=== PATIENT | male | born 1940 | race Caucasian/White ===

== ENCOUNTER 2016-08-11 15:46 | Inpatient (IN) | payer MEDICARE, OTHER ==
[~2016-08-11] VITALS: Ht 165.1 cm; Wt 87.4 kg
[~2016-08-11 15:46] MED LIST: ADV25050 INH; ALBU90AE INHALATION; AZIT250T6 PO; CARV6.2579 PO; ERGO500014 PO; NEBI5TAB9 PO; PRED20TA PO; SIMV20TA6 PO; THEO400T2 PO
[2016-08-11] MEDS ORDERED: ALBUTEROL 0.5% (NEB) 2.5 MG/0.5 ML AMP INH STA (16:08)
[2016-08-11] MEDS ORDERED: IPRATROPIUM (NEB) 0.5 MG/2.5 ML AMP INH STA (16:08)
[2016-08-11] MEDS ORDERED: METHYLPREDNISOLONE 125 MG INJ IV STA (16:08)
[2016-08-11] MEDS ORDERED: TERBUTALINE 1 MG/ML INJ SC STA ×2 (16:08→18:06)
[2016-08-11] MEDS ORDERED: CARV3.1260 PO (16:27)
[2016-08-11] MEDS ORDERED: METH4TAB PO (16:28)
[2016-08-11] MEDS ORDERED: TAMS0.4C2 PO (16:29)
[2016-08-11] MEDS ORDERED: BACL10TA PO (16:29)
[2016-08-11] MEDS ORDERED: CIPR500T4 PO (16:30)
[2016-08-11] MEDS ORDERED: RIVA20TA PO (16:30)
[2016-08-11] MEDS ORDERED: MELO-110 PO (16:31)
[2016-08-11] MEDS ORDERED: LEVO500T10 PO (16:31)
[2016-08-11] MEDS ORDERED: ALBU18HF INHALATION (16:32)
--- NOTE | 2016-08-11 16:37 | RADRPT ---
PROCEDURE: XR Chest. CLINICAL INDICATION: 75-year-old male with asthma exacerbation with shortness of breath. TECHNIQUE: Single frontal view of the chest was obtained COMPARISON: Chest x-ray 05/28/2060 09:58 p.m. FINDINGS: The soft tissues are normal. There are degenerative osteophytes in the thoracic spine. The the hea rt is enlarged. The cardiomediastinal silhouette, pulmonary vasculature and hilar structures are no rmal. There is a left-sided aorta. the lungs are clear. The right costophrenic angle is blunted. The left costophrenic angle may be minimally blunted. IMPRESSION: 1. Cardiomegaly which is unchanged. 2. Blunting of the costophrenic angles may reflect small pleural effusions or pleural scarring. 3. The pulmonary vasculature and lung mercedes are unremarkable with no active infiltrate or pulmonar y edema identified. RPTAT:AAJJ Physician Andres Date Time Electronically viewed and signed by Physician Andres on 08/11/2016 16:37 DARRION/
[2016-08-11 16:39] LABS: ADD SCAN DIFF NO
[2016-08-11 16:42] LABS: ABNORMAL IP MESSAGE 1; HEMATOCRIT 45.1 % (42.0-52.0); HEMOGLOBIN 14.5 g/dl (14.0-18.0); MEAN CORPUSCULAR HEMOGLOBIN 28.1 pg (29.0-33.0); MEAN CORPUSCULAR HGB CONC 32.2 g/dl (32.0-37.0); MEAN CORPUSCULAR VOLUME 87.4 fl (82.0-101.0); MEAN PLATELET VOLUME 11.2 fl (7.4-10.4); PLATELET COUNT 289 10^3/UL (140-415); RED BLOOD COUNT 5.16 10^6/ul (4.70-6.10); RED CELL DISTRIBUTION WIDTH 14.7 % (11.5-14.5); WHITE BLOOD COUNT 12.4 10^3/ul (4.8-10.8)
[2016-08-11 16:58] LABS: POTASSIUM 4.7 mmol/L (3.5-5.1)
[2016-08-11 17:00] LABS: CREATININE 0.96 mg/dl (0.61-1.24)
[2016-08-11 17:01] LABS: CALCIUM 9.5 mg/dl (8.4-10.2)
[2016-08-11 17:13] LABS: TROPONIN-I 0.019 ng/ml (0.00-0.12)
[2016-08-11 17:40] LABS: ANISOCYTOSIS 1+; EOSINOPHILS # 0.1 10^3/ul (0.0-0.5); LYMPHOCYTES # 1.7 10^3/ul (0.8-2.9); MONOCYTE # 1.6 10^3/ul (0.3-0.9); NEUTROPHIL # 8.9 10^3/ul (1.6-7.5); PLATELET ESTIMATE PLT APPEAR ADEQUATE
[2016-08-11] MEDS ORDERED: ALBUTEROL 0.5% (NEB) 2.5 MG/0.5 ML AMP NEB STA (18:06)
[2016-08-11] MEDS ORDERED: SOD CHLORIDE 0.9% 1,000 ML IV SCH (18:39)
--- NOTE | 2016-08-11 18:45 | ERA ---
ER Documentation Chief Complaint Date/Time DATE: 08/11/16 TIME: 18:42 Chief Complaint SOB AND COUGH X 1 HOUR. HX ASTHMA HPI This is 75-year-old male with history of asthma/COPD he was doing relatively well until this afternoon when he had sudden onset of wheezing and shortness of breath. The patient took a nebulizer treatment at home but did not get better and felt he was getting worse so he came in by EMS. He has had no recent cough no fever he has no substernal chest pain but feels some pain in his back when he breathes in. He says this is typical. No abdominal pain nausea vomiting diarrhea. ROS All systems reviewed and are negative except as per history of present illness. Medications Home Meds Reported Medications Albuterol Sulfate* (Ventolin HFA*) 18 Gm Hfa.aer.ad, 2 PUFF INHALATION Q4H, #1 INHALER 08/11/16 Meloxicam* (Mobic*) 15 Mg Tablet, 15 MG PO DAILY, #30 TAB 08/11/16 Levofloxacin* (Levofloxacin*) 500 Mg Tablet, 500 MG PO DAILY, TAB 08/11/16 Rivaroxaban* (Xarelto*) 20 Mg Tablet, 20 MG PO WITH DINNER, TAB 08/11/16 Ciprofloxacin Hcl* (Ciprofloxacin Hcl*) 500 Mg Tablet, 500 MG PO TID, #14 TAB 08/11/16 Baclofen* (Baclofen*) 10 Mg Tablet, 10 MG PO QHS, TAB 08/11/16 Tamsulosin Hcl* (Tamsulosin Hcl*) 0.4 Mg Cap.er.24h, 0.8 MG PO DAILY, CAP 08/11/16 Methylprednisolone* (Medrol*) 4 Mg Tab, 8 MG PO QAM, TAB 08/11/16 Carvedilol* (Carvedilol*) 3.125 Mg Tablet, 3.125 MG PO BID, #60 TAB 08/11/16 Nebivolol* (Bystolic*) 5 Mg Tab, 5 MG PO QHS, #30 10/21/15 Discontinued Reported Medications Theophylline Anhydrous* (Theophylline* ER) 400 Mg Tablet.sa, 200 MG PO BID, TAB.SA 05/28/16 Ergocalciferol* (Drisdol* (Vitamin D2)) 50,000 Unit Capsule, 85110 UNIT PO Q7D, CAP 05/28/16 Carvedilol* (Carvedilol*) 6.25 Mg Tablet, 6.25 MG PO DAILY, #30 10/21/15 Simvastatin (Simvastatin) 20 Mg Tablet, 20 MG PO QHS, #30 10/21/15 Discontinued Scripts Prednisone* (Prednisone*) 20 Mg Tab, 60 MG PO DAILY for 5 Days, TAB Prov:RODRIGUEZ DIALLO MD 05/29/16 Azithromycin* (Azithromycin*) 250 Mg Tablet, 250 MG PO DAILY, #4 TAB Prov:RODRIGUEZ DIALLO MD 05/29/16 Salmeterol Xinaf/Fluticasone* (Advair*) 1 Inh Inha, 1 INH INH BID for 30 Days Prov:MIRYAM SANTOYO 08/26/15 Albuterol Sulfate (Proair Respiclick) 90 Mcg Aer.pow.ba, 2 PUFFS INHALATION q4h Y for SHORTNESS OF BREATH, #1 INHALER Prov:MIRYAM SANTOYO 08/26/15 Allergies Allergies: Coded Allergies: No Known Allergy (Verified , 08/11/16) PMhx/Soc History of Surgery: Yes (hernia repair, colostomy ) Anesthesia Reaction: No Hx Neurological Disorder: Yes (CVA, Dizziness) Hx Respiratory Disorders: Yes (COPD, ASTHMA) Hx Cardiac Disorders: Yes (HEART ATTACK, hypertension) Hx Psychiatric Problems: No Hx Miscellaneous Medical Probl: No Hx Alcohol Use: Yes (Quit) Hx Substance Use: No Hx Tobacco Use: Yes Smoking Status: Former smoker FmHx Family History: No coronary disease Physical Exam Vitals Vital Signs Date Time Temp Pulse Resp B/P Pulse Ox O2 Delivery O2 Flow Rate FiO2 08/11/16 18:29 2.0 08/11/16 18:29 65 20 96 Nasal Cannula 2.0 08/11/16 18:25 58 19 109/58 100 Nasal Cannula 2.0 08/11/16 16:00 Nasal Cannula 2 08/11/16 15:48 97.3 67 18 120/57 93 Physical Exam Const: Well-developed, well-nourished Head: Atraumatic, normocephalic Eyes: Normal Conjunctiva, PERRLA, EOMI, normal sclera, no nystagmus ENT: Normal External Ears, Nose and Mouth, moist mucus membranes. Neck: Full range of motion. No meningismus, no lymphadenopathy. Resp: Increased work of breathing with diffuse inspiratory and expiratory wheezes Cardio: Regular rate and rhythm, no murmurs, S1 S2 present Abd: Soft, non tender x 4, non distended. Normal bowel sounds, no guarding or rebound, no pulsitile abdominal masses or bruits Skin: No petechiae or rashes, no ecchymosis , no maculopapular rash Back: No midline or flank tenderness Ext: No cyanosis, or edema, FROM x 4, normal inspection, neurovascularly intact x 4 Neur: Awake and alert, STR 5/5 x 4, sensation intact x 4, no focal findings, cerebellum intact Psych: Normal Mood and Affect Result Diagram: 08/11/16 1623 08/11/16 1623 Results 24 hrs Laboratory Tests Test 08/11/16 16:23 Anion Gap 15 Anisocytosis 1+ B-Type Natriuretic Peptide 93PG/ML Blood Urea Nitrogen 27mg/dl Calcium Level 9.5mg/dl Carbon Dioxide Level 33mmol/L Chloride Level 95mmol/L Creatinine 0.96mg/dl Eosinophils # 0.110^3/ul Eosinophils % 1.0% Glucose Level 80mg/dl Hematocrit 45.1% Hemoglobin 14.5g/dl Lymphocytes # 1.710^3/ul Lymphocytes % 14.0% Macrocytosis RARE Mean Corpuscular Hemoglobin 28.1pg Mean Corpuscular Hemoglobin Concent 32.2g/dl Mean Corpuscular Volume 87.4fl Mean Platelet Volume 11.2fl Monocytes # 1.610^3/ul Monocytes % 13.0% Neutrophils # 8.910^3/ul Neutrophils % 72.0% Platelet Count 20442^3/UL Platelet Estimate PLT APPEAR ADEQUATE Potassium Level 4.7mmol/L Red Blood Count 5.1610^6/ul Red Cell Distribution Width 14.7% Sodium Level 138mmol/L Troponin I 0.019ng/ml White Blood Count 12.410^3/ul Current Medications Medications (Trade) Dose Ordered Sig/Elisa Route PRN Reason Start Time Stop Time Status Last Admin Dose Admin Albuterol (Proventil 0.5% (Neb)) 10 mg ONCE STAT INH 08/11/16 16:08 08/11/16 16:16 DC 08/11/16 16:45 Ipratropium [place] (Atrovent 0.02% (Neb)) 1 mg ONCE STAT INH 08/11/16 16:08 08/11/16 16:16 DC 08/11/16 16:45 Methylprednisolone Sodium Succinate (Solu-Medrol) 125 mg ONCE STAT IV 08/11/16 16:08 08/11/16 16:16 DC 08/11/16 16:59 Terbutaline Sulfate (Brethine) 0.25 mg ONCE STAT SC 08/11/16 16:08 08/11/16 16:16 DC 08/11/16 16:59 Albuterol (Proventil 0.5% (Neb)) 7.5 mg ONCE STAT NEB 08/11/16 18:06 08/11/16 18:08 DC Terbutaline Sulfate (Brethine) 0.25 mg ONCE STAT SC 08/11/16 18:06 08/11/16 18:08 DC Procedures/MDM PROCEDURE: XR Chest. CLINICAL INDICATION: 75-year-old male with asthma exacerbation with shortness of breath. TECHNIQUE: Single frontal view of the chest was obtained COMPARISON: Chest x-ray 05/28/2060 09:58 p.m. FINDINGS: The soft tissues are normal. There are degenerative osteophytes in the thoracic spine. The the heart is enlarged. The cardiomediastinal silhouette, pulmonary vasculature and hilar structures are normal. There is a left-sided aorta. the lungs are clear. The right costophrenic angle is blunted. The left costophrenic angle may be minimally blunted. IMPRESSION: 1. Cardiomegaly which is unchanged. 2. Blunting of the costophrenic angles may reflect small pleural effusions or pleural scarring. 3. The pulmonary vasculature and lung mercedes are unremarkable with no active infiltrate or pulmonary edema identified. RPTAT:AAJJ Physician Andres Date Time Electronically viewed and signed by Armin Brito Physician on 08/11/2016 16:37 DARRION/ CC: JAQUELINE RYAN DO Patient received an hour long treatment of albuterol along with Atrovent. Also received some steroids IV. On repeat exam the patient's sats are 97-98 on 2-1/2 L nasal cannula but his lung sounds are unchanged he still has increased respiratory effort. He is not in respiratory distress We will repeat breathing treatments and add terbutaline subcu. We will admit for asthma/COPD exacerbation Departure Diagnosis: Primary Impression: COPD with exacerbation Condition: JAQUELINE Rosa DO Aug 11, 2016 18:45
[2016-08-11] MEDS ORDERED: morphine 2 MG INJ IV PRN (19:00)
[2016-08-11] MEDS ORDERED: NA PHOSPHATE/BIPHOS 133 ML ENEMA PR PRN (19:00)
[2016-08-11] MEDS ORDERED: ONDANSETRON 4 MG INJ IV PRN ×2 (19:00)
[2016-08-11] MEDS ORDERED: NITROGLYCERIN (SL) 0.4 MG TAB SL PRN (19:00)
[2016-08-11] MEDS ORDERED: ACETAMINOPHEN 325 MG TAB PO PRN ×2 (19:00)
[2016-08-11] MEDS ORDERED: LORAZEPAM 2 MG INJ IV PRN (19:00)
[2016-08-11] MEDS ORDERED: hydrALAzine 20 MG INJ IV PRN (19:00)
[2016-08-11] MEDS ORDERED: HYDROCODONE/APAP (5/325) TAB PO PRN (19:00)
[2016-08-11] MEDS: METHYLPREDNISOLONE 125 MG INJ IV SCH ×2 (19:00→23:35)
[2016-08-11] MEDS ORDERED: NACL 0.9% 3 ML SYG IV SCH (19:00)
--- NOTE | 2016-08-11 19:50 | HP ---
DATE OF ADMISSION: 08/11/2016 CHIEF COMPLAINT: Shortness of breath. HISTORY OF PRESENT ILLNESS: A 75-year-old male, past medical history of COPD, prior bronchitis, hyp ertension, morbid obesity, high cholesterol, prior smoking history, questionable history of blood cl ot, who presents after having shortness of breath that began earlier today. He has breathing treatm ents at home which he tried to take, but did not relieve his symptoms, so he decided to come into [facility]. He also has been having yellow phlegm. He had subjective fevers as well, but no dizziness, n o loss of consciousness. Feels some pain in the back when he takes a deep breath but no abdominal p ain. No significant chest pain. No nausea. No vomiting. No diarrhea. No constipation. When he came into the ER today, he received breathing treatments, but was still found with elevated white bl ood cell count and still having shortness of breath symptoms despite the breathing treatment. He wa s last here at our hospital from 10/22 to 10/24/2015 for COPD exacerbation at that time. PAST MEDICAL HISTORY: As above; possible stroke, possible heart attack. ALLERGIES: NO KNOWN DRUG ALLERGIES. MEDICATIONS AT HOME 1. Cipro 500 mg t.i.d. 2. Levaquin 500 mg daily. 3. Ventolin HFA 2 puffs inhaled q.4h. 4. Baclofen 10 mg at bedtime. 5. Flomax 0.8 mg daily. 6. Xarelto 20 mg with dinner. 7. Coreg 3.125 mg b.i.d. 8. Bystolic 5 mg at bedtime. 9. Mobic 15 mg daily. 10. Medrol 8 mg q.a.m. PAST SURGICAL HISTORY: He had a colostomy in the past, a hernia repair in the past. SOCIAL HISTORY: Former alcohol user, he quit. A former smoker but quit recently. Denies any IV dr ug abuse. FAMILY HISTORY: Noncontributory. PHYSICAL EXAMINATION VITAL SIGNS: T-max 97.3, pulse 58 to 67, respirations 18 to 20, blood pressure is 120/57, saturatin g at 93% to 96% on 2 L nasal cannula. GENERAL: The patient is lying in bed, answering questions appropriately, in mild distress but alert . HEENT: Pupils equal, round, react to light. Extraocular muscles intact. NECK: Supple; no thyromegaly. LUNGS: Positive rhonchi and expiratory wheezes bilaterally. CARDIOVASCULAR: S1, S2 heard. No rubs or gallops. ABDOMEN: Soft, nontender, nondistended. Normal bowel sounds. No rebound or guarding. MUSCULOSKELETAL: No lower extremity edema bilaterally. NEUROLOGIC: No focal deficits. LABORATORIES: WBC 12.4, hemoglobin 14.5, hematocrit 45.1, platelets of 289. Sodium 138, potassium 4.7, chloride 95, CO2 33, BUN 27, creatinine 0.96, glucose 80. IMAGING: Chest x-ray showed cardiomegaly, unchanged. Blunting of the costophrenic angle, which may reflect small pleural effusions or pleural scarring. Pulmonary vasculature lung mercedes are unremar kable. ASSESSMENT AND PLAN A 75-year-old male coming in with chronic obstructive pulmonary disease exacerbation: 1. Shortness of breath, secondary to chronic obstructive pulmonary disease. Put him on breathing t reatments. Levaquin for now. Given his leukocytosis keep his O2 sats between 88 to 92%. Put him o n Solu-Medrol 80 mg q.6h. as well. Check a TSH, A1c and lipid panel as well. Consider pulmonary co nsult if symptoms do not improve. 2. Hypertension. Continue current medications. 3. High cholesterol. Check a lipid panel. Continue to monitor for now. 4. Prior history of nicotine dependence in remission. Continue his education for smoking cessation . 5. Questionable history of stroke and heart attack. He is on Xarelto. We will need to get more in formation about that. I will try to look at old medical records. I do not see any prior history of that. When he was last here, he was not sent home on Xarelto; but again, that was about a year ago , so need to find out why he is on Xarelto. 6. History of coronary artery disease. Continue Coreg and Bystolic. 7. Gastrointestinal prophylaxis, PPI. 8. Deep venous thrombosis prophylaxis, heparin subcutaneously. Dictated By: FRANKLYN COX Conf#: [id number] DID#: [id number]
[2016-08-11] MEDS: SOD CHLORIDE 0.45% 1,000 ML IV SCH (21:00)
[2016-08-11] MEDS: LEVOFLOXACIN 750MG/D5W (PMX) 150 ML IVPB SCH (21:00)
[2016-08-11] MEDS: ALBUTEROL/IPRATROPIUM (NEB) 3 ML AMP HHN SCH (21:00)
[2016-08-11 22:28] VITALS: PULSE 72
[2016-08-11 22:32] VITALS: Ht 165.1 cm; Wt 87.4 kg
[2016-08-11] MEDS: BACLOFEN 10 MG TAB PO SCH (22:45)
[2016-08-11] MEDS: TAMSULOSIN (SR) 0.4 MG CAP PO SCH (22:46)
[2016-08-11] MEDS: HEPARIN 5,000 UNIT/0.5 ML SYG SC SCH (22:48)
[2016-08-11 23:33] VITALS: BP 135/61; RESP 16
[2016-08-11] MEDS: NEBIVOLOL 5 MG TAB PO SCH (23:37)
[2016-08-12] VITALS (12 sets, daily range): BP systolic 96–116; BP diastolic 50–65; PULSE 53–71; RESP 16–20
[2016-08-12] MEDS: ALBUTEROL/IPRATROPIUM (NEB) 3 ML AMP HHN SCH ×6 (01:11→21:14)
[2016-08-12] MEDS: METHYLPREDNISOLONE 125 MG INJ IV SCH ×4 (05:33→23:43)
[2016-08-12] MEDS ORDERED: PANTOPRAZOLE 40 MG INJ IV SCH (06:00)
[2016-08-12 07:48] LABS: ADD SCAN DIFF NO
[2016-08-12 07:53] LABS: CHOL/HDL RATIO 2.3 RATIO
[2016-08-12 08:06] LABS: ABNORMAL IP MESSAGE 1; BASOPHILS % 0.2 % (0.0-2.0); EOSINOPHILS % 0.2 % (0.0-7.0); HEMATOCRIT 42.7 % (42.0-52.0); HEMOGLOBIN 13.5 g/dl (14.0-18.0); LYMPHOCYTES # 0.9 10^3/ul (0.8-2.9); LYMPHOCYTES % 8.9 % (15.0-51.0); MEAN CORPUSCULAR HEMOGLOBIN 27.6 pg (29.0-33.0); MEAN CORPUSCULAR HGB CONC 31.6 g/dl (32.0-37.0); MEAN CORPUSCULAR VOLUME 87.3 fl (82.0-101.0); MEAN PLATELET VOLUME 11.4 fl (7.4-10.4); MONOCYTE # 0.2 10^3/ul (0.3-0.9); MONOCYTES % 2.4 % (0.0-11.0); NEUTROPHILS % 82.5 % (39.0-77.0); PLATELET COUNT 271 10^3/UL (140-415); RED BLOOD COUNT 4.89 10^6/ul (4.70-6.10); RED CELL DISTRIBUTION WIDTH 15.1 % (11.5-14.5); WHITE BLOOD COUNT 9.7 10^3/ul (4.8-10.8)
[2016-08-12 08:23] LABS: THYROID STIMULATING HORMONE 0.437 MIU/L (0.465-4.680)
[2016-08-12 08:41] LABS: POTASSIUM 4.5 mmol/L (3.5-5.1)
[2016-08-12 08:44] LABS: CREATININE 0.92 mg/dl (0.61-1.24)
[2016-08-12 08:45] LABS: CALCIUM 8.9 mg/dl (8.4-10.2)
[2016-08-12] MEDS: HEPARIN 5,000 UNIT/0.5 ML SYG SC SCH (09:06)
--- NOTE | 2016-08-12 10:52 | PN ---
Date/Time of Note Date/Time of Note DATE: 08/12/16 TIME: 10:35 Assessment/Plan VTE Prophylaxis VTE Prophylaxis Intervention: other (Xarelto) Lines/Catheters IV Catheter Type (from Nrs): Peripheral IV Assessment/Plan Chief Complaint/Hosp Course ASSESSMENT AND PLAN: 75-year-old male coming in with chronic obstructive pulmonary disease exacerbation: 1. Shortness of breath - secondary to chronic obstructive pulmonary disease - slowly improving, but still + wheezes today - continue breathing treatments Q4 hrs ATC - continue Levaquin for now, add cough suppressants -goal O2 sats between 88 to 92%. - continue Solu-Medrol 80 mg q.6h. as well. - f/u TSH, A1c and lipid panel as well. - Consider pulmonary consult if symptoms do not improve. - PT and OT consults. 2. Hypertension. Continue current medications. 3. High cholesterol - f/u lipid panel. - Continue to monitor for now. 4. Prior history of nicotine dependence in remission. - Continue his education for smoking cessation. 5. Questionable history of stroke and heart attack - pt states he was hoaspitalized at [facility] in [place] in the year and states they 'may" have started him on Xarelto then, but he is "not sure why he is taking it". Denies Hx of blood clot/PE. - will request medical records from [facility] - I do not see any prior history of Xarelto being started here in our hospital on any prior admissions ( When he was last here at [facility] in October 2015, he was not sent home on Xarelto). - continue for now, along with Coreg and Bystolic. 6. Gastrointestinal prophylaxis, PPI. 7. Deep venous thrombosis prophylaxis - Xarelto Problems: Subjective 24 Hr Interval Summary Free Text/Dictation Pt has less SOB, but + cough, worked with PT today as well. Exam/Review of Systems Vital Signs Vitals Vital Signs Date Time Temp Pulse Resp B/P Pulse Ox O2 Delivery O2 Flow Rate FiO2 08/12/16 09:33 64 20 94 Nasal Cannula 2.0 08/12/16 07:34 98.3 104/65 08/12/16 01:21 28 Exam GENERAL: The patient is lying in bed, answering questions appropriately, alert. HEENT: Pupils equal, round, react to light. Extraocular muscles intact. NECK: Supple; no thyromegaly. LUNGS: still some + rhonchi and + expiratory wheezes bilaterally, slightly improved from yesterday CARDIOVASCULAR: S1, S2 heard. No rubs or gallops. ABDOMEN: Soft, nontender, nondistended. Normal bowel sounds. No rebound or guarding. MUSCULOSKELETAL: No lower extremity edema bilaterally. NEUROLOGIC: No focal deficits. Results Result Diagram: 08/12/16 0616 08/12/16 0616 Results 24 hrs Laboratory Tests Test 08/11/16 16:23 08/12/16 06:16 Anion Gap 15 18 H Anisocytosis 1+ B-Type Natriuretic Peptide 93 Blood Urea Nitrogen 27 H 22 H Calcium Level 9.5 8.9 Carbon Dioxide Level 33 H 28 Chloride Level 95 L 96 L Creatinine 0.96 0.92 Eosinophils # 0.1 0.0 Eosinophils % 1.0 0.2 Free Thyroxine 1.48 Glucose Level 80 126 # Hematocrit 45.1 42.7 Hemoglobin 14.5 13.5 L Lymphocytes # 1.7 0.9 Lymphocytes % 14.0 L 8.9 L Macrocytosis RARE Mean Corpuscular Hemoglobin 28.1 L 27.6 L Mean Corpuscular Hemoglobin Concent 32.2 31.6 L Mean Corpuscular Volume 87.4 87.3 Mean Platelet Volume 11.2 H 11.4 H Monocytes # 1.6 H 0.2 L Monocytes % 13.0 H 2.4 Neutrophils # 8.9 H 8.0 H Neutrophils % 72.0 82.5 H Platelet Count 289 271 Platelet Estimate PLT APPEAR ADEQUATE Potassium Level 4.7 4.5 Red Blood Count 5.16 4.89 Red Cell Distribution Width 14.7 H 15.1 H Sodium Level 138 137 Troponin I 0.019 White Blood Count 12.4 #H 9.7 # Basophils # 0.0 Basophils % 0.2 Cholesterol Level 128 Cholesterol/HDL Ratio 2.3 HDL Cholesterol 54 Hemoglobin A1c 6.4 H LDL Cholesterol, Calculated 58 Magnesium Level 2.0 Nucleated Red Blood Cells # 0.0 Nucleated Red Blood Cells % 0.0 Phosphorus Level 5.0 H Thyroid Stimulating Hormone (TSH) 0.437 L Triglycerides Level 79 Medications Medications Current Medications Ondansetron HCl (Zofran Inj) 4 mg Q6H PRN IV NAUSEA AND/OR VOMITING; Start 08/11 at 19:00 Acetaminophen (Tylenol Tab) 650 mg Q6H PRN PO PAIN LEVEL 1-3 OR FEVER; Start at 19:00 Acetaminophen/ Hydrocodone Bitart ([place] (5/325)) 1 tab Q6H PRN PO MODERATE PAIN LEVEL 4-6; Start 08/11/16 at 19:00 Morphine Sulfate (morphine) 2 mg Q4H PRN IV SEVERE PAIN LEVEL 7-10; Start at 19:00 Docusate Sodium (Colace) 100 mg Q12H PRN PO CONSTIPATION; Start 08/11/16 at 19: 00 Magnesium Hydroxide (Milk Of Mag) 30 ml DAILY PRN PO CONSTIPATION; Start at 19:00 Sodium Biphosphate/ Sodium Phosphate (Fleet Enema) 133 ml DAILY PRN [place] CONSTIPATION; Start 08/11/16 at 19:00 Pantoprazole (Protonix Iv) 40 mg DAILY@06 IV Last administered on 08/12/16 05: 30; Admin Dose 40 MG; Start 08/12/16 at 06:00 Heparin Sodium (Porcine) 5000 unit 5,000 unit Q12 SC Last administered on 09:06; Admin Dose 5,000 UNIT; Start 08/11/16 at 21:00 Sodium Chloride (1/2 NS) 1,000 ml @ 75 mls/hr [id number] IV Last administered on 08/11/16 21:00; Admin Dose 75 MLS/HR; Start 08/11/16 at 18:37 Lorazepam 0.5 mg 0.5 mg Q6H PRN IV ANXIETY; Start 08/11/16 at 19:00 Levofloxacin/ Dextrose (Levaquin 750 Mg/ D5W 150 ml (Pmx)) 150 ml @ 100 mls/hr Q24H IVPB Last administered on 08/11/16 21:00; Admin Dose 100 MLS/HR; Start 08/11/16 at 20:00 Hydralazine HCl (Apresoline) 10 mg Q6H PRN IV ELEVATED BLOOD PRESSURE; Start at 19:00 Clonidine (Catapres) 0.1 mg Q6H PRN PO ELEVATED BLOOD PRESSURE; Start 08/11/16 at 19:00 Nitroglycerin (Nitroglycerin (Sl Tab) 0.4 Mg) 1 tab Q5M PRN SL ANGINA; Start at 19:00 Baclofen (Lioresal) 10 mg QHS PO Last administered on 08/11/16 22:45; Admin Dose 10 MG; Start 08/11/16 at 21:00 Carvedilol (Coreg) 3.125 mg BID PO Last administered on 08/12/16 09:01; Admin Dose 3.125 MG; Start 08/11/16 at 21:00 Miscellaneous Medication (Bystolic) 5 mg QHS PO Last administered on 08/11/16 23:37; Admin Dose 5 MG; Start 08/11/16 at 21:00 Tamsulosin HCl (Flomax) 0.8 mg QHS PO Last administered on 08/11/16 22:46; Admin Dose 0.8 MG; Start 08/11/16 at 21:00 Methylprednisolone Sodium Succinate (Solu-Medrol) 80 mg Q6 IV Last administered on 08/12/16 05:33; Admin Dose 80 MG; Start 08/11/16 at 19:00 FRANKLYN AHRDING Aug 12, 2016 10:50
[2016-08-12] MEDS ORDERED: CEPASTAT LOZENGE MT PRN (11:00)
[2016-08-12] MEDS ORDERED: ALBUTEROL/IPRATROPIUM (NEB) 3 ML AMP HHN PRN (11:00)
[2016-08-12] MEDS: SOD CHLORIDE 0.45% 1,000 ML IV SCH ×2 (12:59→20:20)
[2016-08-12] MEDS: RIVAROXABAN 20 MG TABLET PO SCH (18:10)
[2016-08-12] MEDS: LEVOFLOXACIN 750MG/D5W (PMX) 150 ML IVPB SCH (19:32)
[2016-08-12] MEDS: NEBIVOLOL 5 MG TAB PO SCH (20:19)
[2016-08-12] MEDS: TAMSULOSIN (SR) 0.4 MG CAP PO SCH (20:19)
[2016-08-12] MEDS: BACLOFEN 10 MG TAB PO SCH (20:19)
[2016-08-13] VITALS (9 sets, daily range): BP systolic 106–142; BP diastolic 56–63; PULSE 55–82; RESP 18
[2016-08-13] MEDS: ALBUTEROL/IPRATROPIUM (NEB) 3 ML AMP HHN SCH ×6 (01:38→20:20)
[2016-08-13] MEDS: PANTOPRAZOLE (EC) 40 MG TAB PO SCH (05:42)
[2016-08-13] MEDS: METHYLPREDNISOLONE 125 MG INJ IV SCH ×3 (05:42→17:58)
[2016-08-13] MEDS: GUAIFENESIN 20 MG/ML 5ML CUP PO PRN (09:02)
[2016-08-13 10:17] LABS: ADD SCAN DIFF NO
[2016-08-13 10:19] LABS: BASOPHILS % 0.1 % (0.0-2.0); HEMATOCRIT 40.3 % (42.0-52.0); HEMOGLOBIN 12.8 g/dl (14.0-18.0); LYMPHOCYTES # 0.7 10^3/ul (0.8-2.9); MEAN CORPUSCULAR HEMOGLOBIN 27.9 pg (29.0-33.0); MEAN CORPUSCULAR HGB CONC 31.8 g/dl (32.0-37.0); MEAN PLATELET VOLUME 11.3 fl (7.4-10.4); MONOCYTE # 0.7 10^3/ul (0.3-0.9); PLATELET COUNT 258 10^3/UL (140-415); RED BLOOD COUNT 4.58 10^6/ul (4.70-6.10); RED CELL DISTRIBUTION WIDTH 15.2 % (11.5-14.5); WHITE BLOOD COUNT 18.4 10^3/ul (4.8-10.8)
[2016-08-13 10:39] LABS: CREATININE 0.94 mg/dl (0.61-1.24)
[2016-08-13 10:40] LABS: CALCIUM 8.8 mg/dl (8.4-10.2)
--- NOTE | 2016-08-13 12:08 | PN ---
Date/Time of Note Date/Time of Note DATE: 08/13/16 TIME: 12:07 Assessment/Plan VTE Prophylaxis VTE Prophylaxis Intervention: other (Xarelto) Lines/Catheters IV Catheter Type (from Nrs): Peripheral IV Assessment/Plan Chief Complaint/Hosp Course ASSESSMENT AND PLAN: 75-year-old male coming in with chronic obstructive pulmonary disease exacerbation: 1. Shortness of breath - secondary to chronic obstructive pulmonary disease - slowly improving, but still + wheezes today again - continue breathing treatments Q4 hrs ATC - continue Levaquin for now, add cough suppressants -goal O2 sats between 88 to 92%. - continue Solu-Medrol 80 mg q.6h. as well. - f/u TSH, A1c and lipid panel as well. - Consider pulmonary consult if symptoms do not improve. - PT and OT consults. 2. Hypertension. Continue current medications. 3. High cholesterol - f/u lipid panel. - Continue to monitor for now. 4. Prior history of nicotine dependence in remission. - Continue his education for smoking cessation. 5. Questionable history of stroke and heart attack - pt states he was hoaspitalized at [facility] in [place] in the year and states they 'may" have started him on Xarelto then, but he is "not sure why he is taking it". Denies Hx of blood clot/PE. - have requested medical records from [facility] - I do not see any prior history of Xarelto being started here in our hospital on any prior admissions ( When he was last here at [facility] in October 2015, he was not sent home on Xarelto). - continue for now, along with Coreg and Bystolic. 6. Gastrointestinal prophylaxis, PPI. 7. Deep venous thrombosis prophylaxis - Xarelto Problems: Subjective 24 Hr Interval Summary Free Text/Dictation Still with some SOB, slightly improving. Exam/Review of Systems Vital Signs Vitals Vital Signs Date Time Temp Pulse Resp B/P Pulse Ox O2 Delivery O2 Flow Rate FiO2 08/13/16 11:36 98.1 64 18 116/58 95 08/13/16 09:53 Nasal Cannula 2.0 08/12/16 01:21 28 Intake and Output 08/12/16 08/12/16 08/13/16 15:00 23:00 07:00 Intake Total 2830 ml 300 ml Output Total 950 ml 500 ml Balance 1880 ml -200 ml Exam GENERAL: The patient is lying in bed, answering questions appropriately, alert. HEENT: Pupils equal, round, react to light. Extraocular muscles intact. NECK: Supple; no thyromegaly. LUNGS: still some + rhonchi and + expiratory wheezes bilaterally, slightly improved from yesterday CARDIOVASCULAR: S1, S2 heard. No rubs or gallops. ABDOMEN: Soft, nontender, nondistended. Normal bowel sounds. No rebound or guarding. MUSCULOSKELETAL: No lower extremity edema bilaterally. NEUROLOGIC: No focal deficits. Results Result Diagram: 08/13/1642 08/13/16 0942 Results 24 hrs Laboratory Tests Test 08/13/16 09:42 Anion Gap 18 H Basophils # 0.0 Basophils % 0.1 Blood Urea Nitrogen 23 H Calcium Level 8.8 Carbon Dioxide Level 24 Chloride Level 97 Creatinine 0.94 Eosinophils # 0.0 Eosinophils % 0.0 Glucose Level 282 #H Hematocrit 40.3 L Hemoglobin 12.8 L Lymphocytes # 0.7 L Lymphocytes % 4.0 L Mean Corpuscular Hemoglobin 27.9 L Mean Corpuscular Hemoglobin Concent 31.8 L Mean Corpuscular Volume 88.0 Mean Platelet Volume 11.3 H Monocytes # 0.7 Monocytes % 4.0 Neutrophils # 16.0 H Neutrophils % 87.0 H Nucleated Red Blood Cells # 0.0 Nucleated Red Blood Cells % 0.0 Platelet Count 258 Potassium Level 4.0 Red Blood Count 4.58 L Red Cell Distribution Width 15.2 H Sodium Level 135 White Blood Count 18.4 #H Medications Medications Current Medications Ondansetron HCl (Zofran Inj) 4 mg Q6H PRN IV NAUSEA AND/OR VOMITING; Start 08/11 at 19:00 Acetaminophen (Tylenol Tab) 650 mg Q6H PRN PO PAIN LEVEL 1-3 OR FEVER; Start at 19:00 Acetaminophen/ Hydrocodone Bitart ([place] (5/325)) 1 tab Q6H PRN PO MODERATE PAIN LEVEL 4-6; Start 08/11/16 at 19:00 Morphine Sulfate (morphine) 2 mg Q4H PRN IV SEVERE PAIN LEVEL 7-10; Start at 19:00 Docusate Sodium (Colace) 100 mg Q12H PRN PO CONSTIPATION; Start 08/11/16 at 19: 00 Magnesium Hydroxide (Milk Of Mag) 30 ml DAILY PRN PO CONSTIPATION; Start at 19:00 Sodium Biphosphate/ Sodium Phosphate 133 ml 133 ml DAILY PRN [place] CONSTIPATION; Start 08/11/16 at 19:00 Sodium Chloride (1/2 NS) 1,000 ml @ 75 mls/hr [id number] IV Last administered on 08/12/16 20:20; Admin Dose 75 MLS/HR; Start 08/11/16 at 18:37 Lorazepam 0.5 mg 0.5 mg Q6H PRN IV ANXIETY; Start 08/11/16 at 19:00 Levofloxacin/ Dextrose (Levaquin 750 Mg/ D5W 150 ml (Pmx)) 150 ml @ 100 mls/hr Q24H IVPB Last administered on 08/12/16 19:32; Admin Dose 100 MLS/HR; Start 08/11/16 at 20:00 Hydralazine HCl (Apresoline) 10 mg Q6H PRN IV ELEVATED BLOOD PRESSURE; Start at 19:00 Clonidine (Catapres) 0.1 mg Q6H PRN PO ELEVATED BLOOD PRESSURE; Start 08/11/16 at 19:00 Nitroglycerin (Nitroglycerin (Sl Tab) 0.4 Mg) 1 tab Q5M PRN SL ANGINA; Start at 19:00 Baclofen (Lioresal) 10 mg QHS PO Last administered on 08/12/16 20:19; Admin Dose 10 MG; Start 08/11/16 at 21:00 Carvedilol (Coreg) 3.125 mg BID PO Last administered on 08/13/16 09:01; Admin Dose 3.125 MG; Start 08/11/16 at 21:00 Miscellaneous Medication (Bystolic) 5 mg QHS PO Last administered on 08/12/16 20:19; Admin Dose 5 MG; Start 08/11/16 at 21:00 Tamsulosin HCl (Flomax) 0.8 mg QHS PO Last administered on 08/12/16 20:19; Admin Dose 0.8 MG; Start 08/11/16 at 21:00 Methylprednisolone Sodium Succinate (Solu-Medrol) 80 mg Q6 IV Last administered on 08/13/16 05:42; Admin Dose 80 MG; Start 08/11/16 at 19:00 Phenol (Cepastat Lozenge) 1 lozenge Q1H PRN [place] COUGH; Start 08/12/16 at 11:00 Guaifenesin (Robitussin Liquid Cup) 200 mg Q4H PRN PO COUGH Last administered on 08/13/16 09:02; Admin Dose 200 MG; Start 08/12/16 at 11:00 Pantoprazole (Protonix Tab) 40 mg DAILY@06 PO Last administered on 08/13/16 05: 42; Admin Dose 40 MG; Start 08/13/16 at 06:00 FRANKLYN HARDING Aug 13, 2016 12:08
[2016-08-13] MEDS ORDERED: GLUCOSE GEL 15 GRAM TUBE BUCCAL PRN (12:30)
[2016-08-13] MEDS ORDERED: DEXTROSE 50% 50 ML SYRINGE IV PRN ×2 (12:30)
[2016-08-13] MEDS ORDERED: GLUCOSE GEL 15 GRAM TUBE PO PRN ×2 (12:30)
[2016-08-13] MEDS ORDERED: GLUCAGON 1 MG INJ IM PRN (12:30)
[2016-08-13] MEDS: INSULIN ASPART [NOVOLOG] 3 ML PEN SC SCH ×2 (17:52→20:59)
[2016-08-13] MEDS: RIVAROXABAN 20 MG TABLET PO SCH (18:54)
[2016-08-13] MEDS: TAMSULOSIN (SR) 0.4 MG CAP PO SCH (20:58)
[2016-08-13] MEDS: NEBIVOLOL 5 MG TAB PO SCH (20:58)
[2016-08-13] MEDS: BACLOFEN 10 MG TAB PO SCH (20:59)
[2016-08-13] MEDS: LEVOFLOXACIN 750MG/D5W (PMX) 150 ML IVPB SCH (21:43)
[2016-08-14] MEDS: METHYLPREDNISOLONE 125 MG INJ IV SCH ×4 (00:49→17:45)
[2016-08-14] MEDS: ALBUTEROL/IPRATROPIUM (NEB) 3 ML AMP HHN SCH ×6 (01:04→20:25)
[2016-08-14] MEDS: ACCUCHECK XX SCH (01:08)
[2016-08-14] MEDS: PANTOPRAZOLE (EC) 40 MG TAB PO SCH (05:41)
[2016-08-14 07:00] VITALS: BP 123/60; RESP 20
[2016-08-14 07:33] LABS: ADD SCAN DIFF NO
[2016-08-14 07:40] LABS: ABNORMAL IP MESSAGE 1; BASOPHILS % 0.1 % (0.0-2.0); HEMATOCRIT 40.4 % (42.0-52.0); HEMOGLOBIN 12.9 g/dl (14.0-18.0); LYMPHOCYTES # 0.5 10^3/ul (0.8-2.9); LYMPHOCYTES % 3.1 % (15.0-51.0); MEAN CORPUSCULAR HEMOGLOBIN 28.2 pg (29.0-33.0); MEAN CORPUSCULAR HGB CONC 31.9 g/dl (32.0-37.0); MEAN CORPUSCULAR VOLUME 88.4 fl (82.0-101.0); MEAN PLATELET VOLUME 11.1 fl (7.4-10.4); MONOCYTE # 0.6 10^3/ul (0.3-0.9); MONOCYTES % 4.1 % (0.0-11.0); NEUTROPHIL # 13.7 10^3/ul (1.6-7.5); NEUTROPHILS % 89.1 % (39.0-77.0); PLATELET COUNT 237 10^3/UL (140-415); RED BLOOD COUNT 4.57 10^6/ul (4.70-6.10); RED CELL DISTRIBUTION WIDTH 15.2 % (11.5-14.5); WHITE BLOOD COUNT 15.4 10^3/ul (4.8-10.8)
[2016-08-14] MEDS: INSULIN ASPART [NOVOLOG] 3 ML PEN SC SCH ×4 (07:50→20:49)
[2016-08-14 07:52] LABS: POTASSIUM 3.8 mmol/L (3.5-5.1)
[2016-08-14 07:54] LABS: CREATININE 1.03 mg/dl (0.61-1.24)
[2016-08-14 07:55] LABS: CALCIUM 8.6 mg/dl (8.4-10.2)
--- NOTE | 2016-08-14 12:19 | PN ---
Date/Time of Note Date/Time of Note DATE: 08/14/16 TIME: 12:16 Assessment/Plan VTE Prophylaxis VTE Prophylaxis Intervention: other (Xarelto) Lines/Catheters IV Catheter Type (from [facility]): Saline Lock Assessment/Plan Chief Complaint/Hosp Course ASSESSMENT AND PLAN: 75-year-old male coming in with chronic obstructive pulmonary disease exacerbation: 1. Shortness of breath - secondary to chronic obstructive pulmonary disease - slowly improving - continue breathing treatments Q4 hrs ATC - continue Levaquin for now, cough suppressants -goal O2 sats between 88 to 92%. - continue Solu-Medrol 80 mg q.6h. as well, consider switch to PO prednisone in 24 hrs - Consider pulmonary consult if symptoms do not improve. - PT and OT consults. 2. Hypertension. Continue current medications. 3. High cholesterol - f/u lipid panel. - Continue to monitor for now. 4. Prior history of nicotine dependence in remission. - Continue his education for smoking cessation. 5. Questionable history of stroke and heart attack - pt states he was hospitalized at [facility] in [place] in the year and states they 'may" have started him on Xarelto then, but he is "not sure why he is taking it". Denies Hx of blood clot/PE. Dx of afib was given per their medical records, no arrythmia seen presently. - for now cautiously continue Xarelto - monitor 6. Gastrointestinal prophylaxis, PPI. 7. Deep venous thrombosis prophylaxis - Xarelto Problems: Subjective 24 Hr Interval Summary Free Text/Dictation Less SOB now. Exam/Review of Systems Vital Signs Vitals Vital Signs Date Time Temp Pulse Resp B/P Pulse Ox O2 Delivery O2 Flow Rate FiO2 08/14/16 09:41 63 18 97 Nasal Cannula 2.0 08/14/16 07:00 98.7 123/60 08/12/16 01:21 28 Intake and Output 08/13/16 08/13/16 08/14/16 15:00 23:00 07:00 Intake Total 150 ml 280 ml Output Total 450 ml 480 ml Balance -450 ml 150 ml -200 ml Exam GENERAL: The patient is lying in bed, answering questions appropriately, alert. HEENT: Pupils equal, round, react to light. Extraocular muscles intact. NECK: Supple; no thyromegaly. LUNGS: less + rhonchi and less + expiratory wheezes bilaterally, improved from yesterday CARDIOVASCULAR: S1, S2 heard. No rubs or gallops. ABDOMEN: Soft, nontender, nondistended. Normal bowel sounds. No rebound or guarding. MUSCULOSKELETAL: No lower extremity edema bilaterally. NEUROLOGIC: No focal deficits. Results Result Diagram: 08/14/16 0649 08/14/16 0644 Results 24 hrs Laboratory Tests Test 08/13/16 17:49 08/13/16 20:57 08/14/16 06:44 08/14/16 06:49 Bedside Glucose 179 135 Anion Gap 15 Blood Urea Nitrogen 25 H Calcium Level 8.6 Carbon Dioxide Level 30 Chloride Level 99 Creatinine 1.03 Glucose Level 129 # Potassium Level 3.8 Sodium Level 140 Basophils # 0.0 Basophils % 0.1 Eosinophils # 0.0 Eosinophils % 0.0 Hematocrit 40.4 L Hemoglobin 12.9 L Lymphocytes # 0.5 L Lymphocytes % 3.1 L Mean Corpuscular Hemoglobin 28.2 L Mean Corpuscular Hemoglobin Concent 31.9 L Mean Corpuscular Volume 88.4 Mean Platelet Volume 11.1 H Monocytes # 0.6 Monocytes % 4.1 Neutrophils # 13.7 H Neutrophils % 89.1 H Nucleated Red Blood Cells # 0.0 Nucleated Red Blood Cells % 0.0 Platelet Count 237 Red Blood Count 4.57 L Red Cell Distribution Width 15.2 H White Blood Count 15.4 H Test 08/14/16 08:19 Bedside Glucose 118 Medications Medications Current Medications Ondansetron HCl (Zofran Inj) 4 mg Q6H PRN IV NAUSEA AND/OR VOMITING; Start 08/11 at 19:00 Acetaminophen (Tylenol Tab) 650 mg Q6H PRN PO PAIN LEVEL 1-3 OR FEVER; Start at 19:00 Acetaminophen/ Hydrocodone Bitart ([place] (5/325)) 1 tab Q6H PRN PO MODERATE PAIN LEVEL 4-6; Start 08/11/16 at 19:00 Morphine Sulfate (morphine) 2 mg Q4H PRN IV SEVERE PAIN LEVEL 7-10; Start at 19:00 Docusate Sodium (Colace) 100 mg Q12H PRN PO CONSTIPATION; Start 08/11/16 at 19: 00 Magnesium Hydroxide (Milk Of Mag) 30 ml DAILY PRN PO CONSTIPATION; Start at 19:00 Sodium Biphosphate/ Sodium Phosphate (Fleet Enema) 133 ml DAILY PRN [place] CONSTIPATION; Start 08/11/16 at 19:00 Lorazepam 0.5 mg 0.5 mg Q6H PRN IV ANXIETY; Start 08/11/16 at 19:00 Levofloxacin/ Dextrose (Levaquin 750 Mg/ D5W 150 ml (Pmx)) 150 ml @ 100 mls/hr Q24H IVPB Last administered on 08/13/16 21:43; Admin Dose 100 MLS/HR; Start 08/11/16 at 20:00 Hydralazine HCl (Apresoline) 10 mg Q6H PRN IV ELEVATED BLOOD PRESSURE; Start at 19:00 Clonidine (Catapres) 0.1 mg Q6H PRN PO ELEVATED BLOOD PRESSURE; Start 08/11/16 at 19:00 Nitroglycerin (Nitroglycerin (Sl Tab) 0.4 Mg) 1 tab Q5M PRN SL ANGINA; Start at 19:00 Baclofen (Lioresal) 10 mg QHS PO Last administered on 08/13/16 20:59; Admin Dose 10 MG; Start 08/11/16 at 21:00 Carvedilol (Coreg) 3.125 mg BID PO Last administered on 08/14/16 09:24; Admin Dose 3.125 MG; Start 08/11/16 at 21:00 Miscellaneous Medication (Bystolic) 5 mg QHS PO Last administered on 08/13/16 20:58; Admin Dose 5 MG; Start 08/11/16 at 21:00 Tamsulosin HCl (Flomax) 0.8 mg QHS PO Last administered on 08/13/16 20:58; Admin Dose 0.8 MG; Start 08/11/16 at 21:00 Methylprednisolone Sodium Succinate (Solu-Medrol) 80 mg Q6 IV Last administered on 08/14/16 05:41; Admin Dose 80 MG; Start 08/11/16 at 19:00 Phenol (Cepastat Lozenge) 1 lozenge Q1H PRN MT COUGH; Start 08/12/16 at 11:00 Guaifenesin (Robitussin Liquid Cup) 200 mg Q4H PRN PO COUGH Last administered on 08/13/16 09:02; Admin Dose 200 MG; Start 08/12/16 at 11:00 Pantoprazole (Protonix Tab) 40 mg DAILY@06 PO Last administered on 08/14/16t 05: 41; Admin Dose 40 MG; Start 08/13/16 at 06:00 Diagnostic Test (Pha) (Accucheck) 1 ea 02 XX ; Start 08/14/16 at 02:00 Miscellaneous Information 1 ea NOTE XX ; Start 08/13/16 at 12:30 Glucose (Glutose) 15 gm Q15M PRN PO DECREASED GLUCOSE; Start 08/13/16 at 12:30 Glucose (Glutose) 22.5 gm Q15M PRN PO DECREASED GLUCOSE; Start 08/13/16 at 12:30 Dextrose (D50w Syringe) 25 ml Q15M PRN IV DECREASED GLUCOSE; Start 08/13/16 at 12:30 Dextrose (D50w Syringe) 50 ml Q15M PRN IV DECREASED GLUCOSE; Start 08/13/16 at 12:30 Glucagon (Glucagen) 1 mg Q15M PRN IM DECREASED GLUCOSE; Start 08/13/16 at 12:30 Glucose (Glutose) 15 gm Q15M PRN BUCCAL DECREASED GLUCOSE; Start 08/13/16 at 12: 30 FRANKLYN HARDING Aug 14, 2016 12:19
[2016-08-14] MEDS ORDERED: DIPHENHYDRAMINE 25 MG CAP PO PRN (12:30)
[2016-08-14] MEDS: MAGNESIUM HYDROXIDE 30ML CUP PO PRN (17:45)
[2016-08-14] MEDS: RIVAROXABAN 20 MG TABLET PO SCH (17:45)
[2016-08-14] MEDS: DOCUSATE SODIUM 100 MG CAP PO PRN (17:45)
[2016-08-14] MEDS: LEVOFLOXACIN 750MG/D5W (PMX) 150 ML IVPB SCH (20:32)
[2016-08-14] MEDS: TAMSULOSIN (SR) 0.4 MG CAP PO SCH (20:37)
[2016-08-14] MEDS: BACLOFEN 10 MG TAB PO SCH (20:37)
[2016-08-14] MEDS: NEBIVOLOL 5 MG TAB PO SCH (20:41)
[2016-08-14 21:18] VITALS: BP 124/60; RESP 20
[2016-08-14] MEDS: GUAIFENESIN 20 MG/ML 5ML CUP PO PRN (22:52)
[2016-08-15] MEDS: METHYLPREDNISOLONE 125 MG INJ IV SCH ×5 (00:08→23:47)
[2016-08-15] MEDS: ALBUTEROL/IPRATROPIUM (NEB) 3 ML AMP HHN SCH ×6 (00:49→20:26)
[2016-08-15] MEDS: ACCUCHECK XX SCH (01:07)
[2016-08-15] MEDS: GUAIFENESIN/CODEINE 5ML CUP PO PRN ×3 (02:40→12:10)
[2016-08-15] MEDS: PANTOPRAZOLE (EC) 40 MG TAB PO SCH (06:00)
[2016-08-15 07:25] VITALS: BP 123/62; RESP 18
--- NOTE | 2016-08-15 07:36 | PN ---
Date/Time of Note Date/Time of Note DATE: 08/15/16 TIME: 07:30 Assessment/Plan VTE Prophylaxis VTE Prophylaxis Intervention: SCD's Lines/Catheters IV C[facility]ter Type (from [facility]): Saline Lock Assessment/Plan Assessment/Plan 1. COPD Exacerbation - continue breathing treatments Q4 hrs ATC - continue Levaquin for now, cough suppressants -goal O2 sats between 88 to 92%. - Will taper down from Solu-Medrol 80 mg q.6h. to BID today - Consider pulmonary consult if symptoms do not improve. - PT and OT consults. 2. Hypertension. Continue current medications. 3. Prior history of nicotine dependence in remission. - Continue his education for smoking cessation. 4. Questionable history of stroke and heart attack - pt states he was hospitalized at [facility] in [place] in the year and states they 'may" have started him on Xarelto then, but he is "not sure why he is taking it". Denies Hx of blood clot/PE. Dx of afib was given per their medical records, no arrythmia seen presently. - for now cautiously continue Xarelto - monitor Subjective 24 Hr Interval Summary Free Text/Dictation Still with shortness of breath Exam/Review of Systems Vital Signs Vitals Vital Signs Date Time Temp Pulse Resp B/P Pulse Ox O2 Delivery O2 Flow Rate FiO2 08/15/16 07:25 97.8 60 18 123/62 94 08/15/16 05:44 Nasal Cannula 2.0 08/12/16 01:21 28 Intake and Output 08/14/16 08/14/16 08/15/16 15:00 23:00 07:00 Intake Total 1310 ml 420 ml Output Total 800 ml 1000 ml Balance 510 ml -580 ml Exam Constitutional: other (sleepy. No acute Distress) Head: atraumatic, normocephalic Eyes: EOMI, PERRL, nl conjunctiva Respiratory: diminished breath sounds, wheezing Cardiovascular: nl pulses, regular rate and rhythm Gastrointestinal: non-tender, soft Extremities: normal pulses Results Result Diagram: 08/14/16 0649 08/14/16 0644 Results 24 hrs Laboratory Tests Test 08/14/16 08:19 08/14/16 12:48 08/14/16 17:36 08/14/16 20:47 Bedside Glucose 118 127 118 122 Medications Medications Current Medications Ondansetron HCl (Zofran Inj) 4 mg Q6H PRN IV NAUSEA AND/OR VOMITING; Start 08/11 at 19:00 Acetaminophen (Tylenol Tab) 650 mg Q6H PRN PO PAIN LEVEL 1-3 OR FEVER; Start at 19:00 Acetaminophen/ Hydrocodone Bitart ([place] (5/325)) 1 tab Q6H PRN PO MODERATE PAIN LEVEL 4-6; Start 08/11/16 at 19:00 Morphine Sulfate (morphine) 2 mg Q4H PRN IV SEVERE PAIN LEVEL 7-10; Start at 19:00 Docusate Sodium (Colace) 100 mg Q12H PRN PO CONSTIPATION Last administered on 17:45; Admin Dose 100 MG; Start 08/11/16 at 19:00 Magnesium Hydroxide (Milk Of Mag) 30 ml DAILY PRN PO CONSTIPATION Last administered on 08/14/16 17:45; Admin Dose 30 ML; Start 08/11/16 at 19:00 Sodium Biphosphate/ Sodium Phosphate (Fleet Enema) 133 ml DAILY PRN [place] CONSTIPATION; Start 08/11/16 at 19:00 Lorazepam 0.5 mg 0.5 mg Q6H PRN IV ANXIETY; Start 08/11/16 at 19:00 Levofloxacin/ Dextrose (Levaquin 750 Mg/ D5W 150 ml (Pmx)) 150 ml @ 100 mls/hr Q24H IVPB Last administered on 08/14/16 20:32; Admin Dose 100 MLS/HR; Start 08/11/16 at 20:00 Hydralazine HCl (Apresoline) 10 mg Q6H PRN IV ELEVATED BLOOD PRESSURE; Start at 19:00 Clonidine (Catapres) 0.1 mg Q6H PRN PO ELEVATED BLOOD PRESSURE; Start 08/11/16 at 19:00 Nitroglycerin (Nitroglycerin (Sl Tab) 0.4 Mg) 1 tab Q5M PRN SL ANGINA; Start at 19:00 Baclofen (Lioresal) 10 mg QHS PO Last administered on 08/14/16 20:37; Admin Dose 10 MG; Start 08/11/16 at 21:00 Carvedilol (Coreg) 3.125 mg BID PO Last administered on 08/14/16 20:42; Admin Dose 3.125 MG; Start 08/11/16 at 21:00 Miscellaneous Medication (Bystolic) 5 mg QHS PO Last administered on 08/14/16 20:41; Admin Dose 5 MG; Start 08/11/16 at 21:00 Tamsulosin HCl (Flomax) 0.8 mg QHS PO Last administered on 08/14/16 20:37; Admin Dose 0.8 MG; Start 08/11/16 at 21:00 Methylprednisolone Sodium Succinate (Solu-Medrol) 80 mg Q6 IV Last administered on 08/15/16 06:00; Admin Dose 80 MG; Start 08/11/16 at 19:00 Phenol (Cepastat Lozenge) 1 lozenge Q1H PRN MT COUGH; Start 08/12/16 at 11:00 Guaifenesin (Robitussin Liquid Cup) 200 mg Q4H PRN PO COUGH Last administered on 08/14/16 22:52; Admin Dose 200 MG; Start 08/12/16 at 11:00 Pantoprazole (Protonix Tab) 40 mg DAILY@06 PO Last administered on 08/15/16 06: 00; Admin Dose 40 MG; Start 08/13/16 at 06:00 Diagnostic Test (Pha) (Accucheck) 1 ea 02 XX ; Start 08/14/16 at 02:00 Miscellaneous Information 1 ea NOTE XX ; Start 08/13/16 at 12:30 Glucose (Glutose) 15 gm Q15M PRN PO DECREASED GLUCOSE; Start 08/13/16 at 12:30 Glucose (Glutose) 22.5 gm Q15M PRN PO DECREASED GLUCOSE; Start 08/13/16 at 12:30 Dextrose (D50w Syringe) 25 ml Q15M PRN IV DECREASED GLUCOSE; Start 08/13/16 at 12:30 Dextrose (D50w Syringe) 50 ml Q15M PRN IV DECREASED GLUCOSE; Start 08/13/16 at 12:30 Glucagon (Glucagen) 1 mg Q15M PRN IM DECREASED GLUCOSE; Start 08/13/16 at 12:30 Glucose (Glutose) 15 gm Q15M PRN BUCCAL DECREASED GLUCOSE; Start 08/13/16 at 12: 30 Diphenhydramine HCl (Benadryl) 25 mg Q6H PRN PO ITCHING Last administered on 17:45; Admin Dose 25 MG; Start 08/14/16 at 12:30 Guaifenesin/ Codeine Phosphate (Robitussin Ac Liquid Cup) 10 ml Q4H PRN PO cough Last administered on 08/15/16 07:11; Admin Dose 10 ML; Start 08/15/16 at 03 :00 KATALINA MARTINEZ MD Aug 15, 2016 07:36
[2016-08-15] MEDS: INSULIN ASPART [NOVOLOG] 3 ML PEN SC SCH ×4 (07:50→21:00)
[2016-08-15 09:05] LABS: ADD SCAN DIFF NO
[2016-08-15 09:11] LABS: ABNORMAL IP MESSAGE 1; BASOPHILS % 0.1 % (0.0-2.0); HEMATOCRIT 41.9 % (42.0-52.0); HEMOGLOBIN 13.2 g/dl (14.0-18.0); LYMPHOCYTES # 0.5 10^3/ul (0.8-2.9); MEAN CORPUSCULAR HEMOGLOBIN 27.8 pg (29.0-33.0); MEAN CORPUSCULAR HGB CONC 31.5 g/dl (32.0-37.0); MEAN CORPUSCULAR VOLUME 88.2 fl (82.0-101.0); MONOCYTE # 0.5 10^3/ul (0.3-0.9); MONOCYTES % 3.5 % (0.0-11.0); NEUTROPHIL # 11.6 10^3/ul (1.6-7.5); PLATELET COUNT 181 10^3/UL (140-415); RED BLOOD COUNT 4.75 10^6/ul (4.70-6.10); RED CELL DISTRIBUTION WIDTH 15.5 % (11.5-14.5)
[2016-08-15 09:21] LABS: POTASSIUM 4.2 mmol/L (3.5-5.1)
[2016-08-15 09:24] LABS: CREATININE 0.86 mg/dl (0.61-1.24)
[2016-08-15 09:25] LABS: CALCIUM 8.5 mg/dl (8.4-10.2)
[2016-08-15] MEDS: RIVAROXABAN 20 MG TABLET PO SCH (17:51)
[2016-08-15] MEDS: MAGNESIUM HYDROXIDE 30ML CUP PO PRN (17:51)
[2016-08-15 19:47] VITALS: BP 127/64; RESP 20
[2016-08-15] MEDS: LEVOFLOXACIN 750MG/D5W (PMX) 150 ML IVPB SCH (20:11)
[2016-08-15] MEDS: BACLOFEN 10 MG TAB PO SCH (21:53)
[2016-08-15] MEDS: NEBIVOLOL 5 MG TAB PO SCH (21:53)
[2016-08-15] MEDS: TAMSULOSIN (SR) 0.4 MG CAP PO SCH (21:53)
[2016-08-16] MEDS: ALBUTEROL/IPRATROPIUM (NEB) 3 ML AMP HHN SCH ×6 (01:44→20:07)
[2016-08-16] MEDS: ACCUCHECK XX SCH (02:00)
[2016-08-16] MEDS: METHYLPREDNISOLONE 125 MG INJ IV SCH ×4 (06:03→23:47)
[2016-08-16] MEDS: PANTOPRAZOLE (EC) 40 MG TAB PO SCH (06:03)
[2016-08-16 06:41] LABS: ADD SCAN DIFF NO
[2016-08-16 06:48] LABS: ABNORMAL IP MESSAGE 1; BASOPHILS % 0.1 % (0.0-2.0); HEMATOCRIT 41.1 % (42.0-52.0); HEMOGLOBIN 13.2 g/dl (14.0-18.0); LYMPHOCYTES # 0.5 10^3/ul (0.8-2.9); MEAN CORPUSCULAR HEMOGLOBIN 28.1 pg (29.0-33.0); MEAN CORPUSCULAR HGB CONC 32.1 g/dl (32.0-37.0); MEAN CORPUSCULAR VOLUME 87.6 fl (82.0-101.0); MEAN PLATELET VOLUME 11.1 fl (7.4-10.4); MONOCYTE # 0.5 10^3/ul (0.3-0.9); MONOCYTES % 4.9 % (0.0-11.0); NEUTROPHIL # 8.9 10^3/ul (1.6-7.5); NEUTROPHILS % 87.5 % (39.0-77.0); PLATELET COUNT 194 10^3/UL (140-415); RED BLOOD COUNT 4.69 10^6/ul (4.70-6.10); WHITE BLOOD COUNT 10.2 10^3/ul (4.8-10.8)
[2016-08-16 07:34] LABS: CREATININE 0.91 mg/dl (0.61-1.24)
[2016-08-16 07:35] LABS: CALCIUM 8.4 mg/dl (8.4-10.2)
[2016-08-16] MEDS: INSULIN ASPART [NOVOLOG] 3 ML PEN SC SCH ×4 (07:50→21:00)
[2016-08-16 08:21] VITALS: PULSE 62
[2016-08-16 08:43] VITALS: BP 131/67; RESP 18
--- NOTE | 2016-08-16 11:42 | PN ---
Date/Time of Note Date/Time of Note DATE: 08/16/16 TIME: 11:35 Assessment/Plan VTE Prophylaxis VTE Prophylaxis Intervention: other (Xarelto) Lines/Catheters IV Catheter Type (from Nrs): Saline Lock Urinary Cath still in place: No Assessment/Plan Assessment/Plan 1. COPD Exacerbation 2. Hypertension. 3. Prior tobacco abuse 4. Paroxsymal Afib 5. Reported hx of [place] and stroke PLAN: - continue breathing treatments Q4 hrs ATC / levaquin / solumedrol -Continue supportive care -add Advair -add finasteride PROPHYLAXIS: Xarelto / Protonix Subjective 24 Hr Interval Summary Free Text/Dictation c/o still difficult to breathe constipation / poor urinary stream Exam/Review of Systems Vital Signs Vitals Vital Signs Date Time Temp Pulse Resp B/P Pulse Ox O2 Delivery O2 Flow Rate FiO2 08/16/16 08:43 98.2 53 18 131/67 95 08/16/16 08:09 21 08/15/16 17:06 2.0 08/15/16 08:30 Nasal Cannula Intake and Output 08/15/16 08/15/16 08/16/16 15:00 23:00 07:00 Intake Total 1410 ml 500 ml Output Total 1000 ml 800 ml Balance 410 ml -300 ml Exam GENERAL: The patient is lying in bed, answering questions appropriately, alert. HEENT: Pupils equal, round, react to light. Extraocular muscles intact. NECK: Supple; no thyromegaly. LUNGS: less + rhonchi and less + expiratory wheezes bilaterally, improved from yesterday CARDIOVASCULAR: S1, S2 heard. No rubs or gallops. ABDOMEN: Soft, nontender, nondistended. Normal bowel sounds. No rebound or guarding. MUSCULOSKELETAL: No lower extremity edema bilaterally. NEUROLOGIC: No focal deficits. Results Result Diagram: 08/16/16 0610 08/16/16 0610 Results 24 hrs Laboratory Tests Test 08/15/16 12:04 08/15/16 17:21 08/15/16 20:09 08/16/16 06:10 Bedside Glucose 159 99 139 Anion Gap 13 Basophils # 0.0 Basophils % 0.1 Blood Urea Nitrogen 29 H Calcium Level 8.4 Carbon Dioxide Level 34 H Chloride Level 95 L Creatinine 0.91 Eosinophils # 0.0 Eosinophils % 0.0 Glucose Level 124 Hematocrit 41.1 L Hemoglobin 13.2 L Lymphocytes # 0.5 L Lymphocytes % 5.0 L Mean Corpuscular Hemoglobin 28.1 L Mean Corpuscular Hemoglobin Concent 32.1 Mean Corpuscular Volume 87.6 Mean Platelet Volume 11.1 H Monocytes # 0.5 Monocytes % 4.9 Neutrophils # 8.9 H Neutrophils % 87.5 H Nucleated Red Blood Cells # 0.0 Nucleated Red Blood Cells % 0.0 Platelet Count 194 Potassium Level 4.0 Red Blood Count 4.69 L Red Cell Distribution Width 15.0 H Sodium Level 138 White Blood Count 10.2 # Test 08/16/16 07:48 Bedside Glucose 112 Medications Medications Current Medications Ondansetron HCl (Zofran Inj) 4 mg Q6H PRN IV NAUSEA AND/OR VOMITING; Start 08/11 at 19:00 Acetaminophen (Tylenol Tab) 650 mg Q6H PRN PO PAIN LEVEL 1-3 OR FEVER; Start at 19:00 Acetaminophen/ Hydrocodone Bitart ([place] (5/325)) 1 tab Q6H PRN PO MODERATE PAIN LEVEL 4-6; Start 08/11/16 at 19:00 Morphine Sulfate (morphine) 2 mg Q4H PRN IV SEVERE PAIN LEVEL 7-10; Start at 19:00 Docusate Sodium (Colace) 100 mg Q12H PRN PO CONSTIPATION Last administered on 17:45; Admin Dose 100 MG; Start 08/11/16 at 19:00 Magnesium Hydroxide (Milk Of Mag) 30 ml DAILY PRN PO CONSTIPATION Last administered on 08/15/16 17:51; Admin Dose 30 ML; Start 08/11/16 at 19:00 Sodium Biphosphate/ Sodium Phosphate (Fleet Enema) 133 ml DAILY PRN [place] CONSTIPATION; Start 08/11/16 at 19:00 Lorazepam 0.5 mg 0.5 mg Q6H PRN IV ANXIETY; Start 08/11/16 at 19:00 Levofloxacin/ Dextrose (Levaquin 750 Mg/ D5W 150 ml (Pmx)) 150 ml @ 100 mls/hr Q24H IVPB Last administered on 08/15/16 20:11; Admin Dose 100 MLS/HR; Start 08/11/16 at 20:00 Hydralazine HCl (Apresoline) 10 mg Q6H PRN IV ELEVATED BLOOD PRESSURE; Start at 19:00 Clonidine (Catapres) 0.1 mg Q6H PRN PO ELEVATED BLOOD PRESSURE; Start 08/11/16 at 19:00 Nitroglycerin (Nitroglycerin (Sl Tab) 0.4 Mg) 1 tab Q5M PRN SL ANGINA; Start at 19:00 Baclofen (Lioresal) 10 mg QHS PO Last administered on 08/15/16 21:53; Admin Dose 10 MG; Start 08/11/16 at 21:00 Carvedilol (Coreg) 3.125 mg BID PO Last administered on 08/16/16 08:20; Admin Dose 3.125 MG; Start 08/11/16 at 21:00 Miscellaneous Medication (Bystolic) 5 mg QHS PO Last administered on 08/15/16 21:53; Admin Dose 5 MG; Start 08/11/16 at 21:00 Tamsulosin HCl (Flomax) 0.8 mg QHS PO Last administered on 08/15/16 21:53; Admin Dose 0.8 MG; Start 08/11/16 at 21:00 Methylprednisolone Sodium Succinate (Solu-Medrol) 80 mg Q6 IV Last administered on 08/16/16 06:03; Admin Dose 80 MG; Start 08/11/16 at 19:00 Phenol (Cepastat Lozenge) 1 lozenge Q1H PRN MT COUGH; Start 08/12/16 at 11:00 Guaifenesin (Robitussin Liquid Cup) 200 mg Q4H PRN PO COUGH Last administered on 08/14/16 22:52; Admin Dose 200 MG; Start 08/12/16 at 11:00 Pantoprazole (Protonix Tab) 40 mg DAILY@06 PO Last administered on 08/16/16 06: 03; Admin Dose 40 MG; Start 08/13/16 at 06:00 Diagnostic Test (Pha) (Accucheck) 1 ea 02 XX ; Start 08/14/16 at 02:00 Miscellaneous Information 1 ea NOTE XX ; Start 08/13/16 at 12:30 Glucose (Glutose) 15 gm Q15M PRN PO DECREASED GLUCOSE; Start 08/13/16 at 12:30 Glucose (Glutose) 22.5 gm Q15M PRN PO DECREASED GLUCOSE; Start 08/13/16 at 12:30 Dextrose (D50w Syringe) 25 ml Q15M PRN IV DECREASED GLUCOSE; Start 08/13/16 at 12:30 Dextrose (D50w Syringe) 50 ml Q15M PRN IV DECREASED GLUCOSE; Start 08/13/16 at 12:30 Glucagon (Glucagen) 1 mg Q15M PRN IM DECREASED GLUCOSE; Start 08/13/16 at 12:30 Glucose (Glutose) 15 gm Q15M PRN BUCCAL DECREASED GLUCOSE; Start 08/13/16 at 12: 30 Diphenhydramine HCl (Benadryl) 25 mg Q6H PRN PO ITCHING Last administered on 17:45; Admin Dose 25 MG; Start 08/14/16 at 12:30 Guaifenesin/ Codeine Phosphate (Robitussin Ac Liquid Cup) 10 ml Q4H PRN PO cough Last administered on 08/15/16 12:10; Admin Dose 10 ML; Start 08/15/16 at 03 :00 ZENAIDA KRUGER Aug 16, 2016 11:41
[2016-08-16] MEDS: DOCUSATE SODIUM 100 MG CAP PO PRN (11:50)
[2016-08-16] MEDS: MAGNESIUM HYDROXIDE 30ML CUP PO PRN (11:50)
--- NOTE | 2016-08-16 14:07 | RADRPT ---
Echocardiogram Report Patient Name: ASHLI MCBRIDE Gender: Male Date: 1940 Study Date: 16-Aug-2016 International Accountant: [facility] Location: [id number] Ref. Physician: ZENAIDA KRUGER Quality: Technically Difficult Study Procedures: Transthoracic echocardiogram with complete 2D, M-Mode, and doppler examination. Indications: Shortness of breath. 2D/M Mode Doppler Measurement Value Normal Ranges Measurement Value Normal Ranges LVIDd 2D 4.2 3.5 - 5.6 cm AV Peak Martin 1.1 m/sec LVIDs 2D 2.8 2.1 - 4.1 cm AV Peak PG 5.1 mmHg LVPWd 2D 1.3 0.6 - 1.1 cm LVOT Mean Martin 0.7 m/sec IVSd 2D 1.3 0.6 - 1.1 cm LVOT Mean PG 2.6 mmHg AoR Diam 2D 3.5 2.0 - 3.7 cm LVOT Peak Martin 1.0 m/sec EDV 2D 80.5 cm3 LVOT Peak PG 4.4 mmHg ESV 2D 22.3 cm3 LVOT VTI 30.9 cm MV E Peak Martin 0.7 m/sec MV A Peak Martin 0.8 m/sec MV E/A 0.9 MV Decel Time 107 msec MV Decel Schley 7 MV E/A 0.9 Findings Left Ventricle: Normal left ventricular systolic function. Normal left ventricular cavity size. Mild concentric left ventricular hypertrophy. Ejection fraction is visually estimated at 65 %. Abnormal Diastolic Function. Right Ventricle: Normal right ventricular size. Normal right ventricular systolic function. Borderline right ventricular hypertrophy. Left Atrium: The left atrium is normal in size. Right Atrium: Right atrium at upper limits of normal. Mitral Valve: Mild mitral leaflet calcification. Mild mitral annular calcification. Mild mitral valve regurgitation. Aortic Valve: Aortic valve not well visualized. No aortic regurgitation. Tricuspid Valve: Tricuspid valve not well visualized. There is trace tricuspid regurgitation. Pericardium: Trivial pericardial effusion. Aorta: Normal aortic root. IVC: Dilated IVC without respiratory collapse consistent with elevated right atrial pressure. Conclusions 1.Normal left ventricular systolic function. Normal left ventricular cavity size. Mild concentric left ventricular hypertrophy. Ejection fraction is visually estimated at 65 %. Abnormal Diastolic Function. 2.Mild mitral leaflet calcification. Mild mitral annular calcification. Mild mitral valve regurgitation. 3.Aortic valve not well visualized. No aortic regurgitation. 4.Tricuspid valve not well visualized. There is trace tricuspid regurgitation. 5.Dilated IVC without respiratory collapse consistent with elevated right atrial pressure. 6.Trivial pericardial effusion. Electronically Signed By: Stanley Hargrove 16-Aug-2016 14:06:22 -0800 Patient Name: ASHLI MCBRIDE Study Date: 16-Aug-2016 [id number]
[2016-08-16] MEDS ORDERED: MAGNESIUM CITRATE 300 ML BTL PO ONE (15:00)
[2016-08-16] MEDS: FINASTERIDE 5 MG TAB PO SCH (16:24)
[2016-08-16] MEDS: RIVAROXABAN 20 MG TABLET PO SCH (17:51)
[2016-08-16] MEDS ORDERED: DOCUSATE SODIUM 100 MG CAP PO SCH (19:00)
[2016-08-16 20:28] VITALS: BP 117/58; RESP 19
[2016-08-16] MEDS ORDERED: INSULIN GLARGINE [LANtus] 3 ML PEN SC SCH (21:00)
[2016-08-16] MEDS: LEVOFLOXACIN 750MG/D5W (PMX) 150 ML IVPB SCH (21:13)
[2016-08-16] MEDS: SALMETEROL/FLUTICASONE 250/50 INHA INH SCH (21:13)
[2016-08-16] MEDS: DOCUSATE SODIUM 100 MG CAP PO SCH (21:14)
[2016-08-16] MEDS: BACLOFEN 10 MG TAB PO SCH (21:14)
[2016-08-16] MEDS: TAMSULOSIN (SR) 0.4 MG CAP PO SCH (21:14)
[2016-08-16] MEDS: NEBIVOLOL 5 MG TAB PO SCH (21:15)
[2016-08-17] MEDS: ALBUTEROL/IPRATROPIUM (NEB) 3 ML AMP HHN SCH ×5 (00:10→16:18)
[2016-08-17] MEDS: ACCUCHECK XX SCH (02:00)
[2016-08-17] MEDS: PANTOPRAZOLE (EC) 40 MG TAB PO SCH (06:24)
[2016-08-17] MEDS: METHYLPREDNISOLONE 125 MG INJ IV SCH ×2 (06:24→12:27)
[2016-08-17] MEDS: INSULIN ASPART [NOVOLOG] 3 ML PEN SC SCH ×2 (07:50→11:40)
[2016-08-17 08:08] VITALS: BP 143/69; RESP 18
[2016-08-17 08:12] VITALS: BP 125/67; RESP 18
[2016-08-17] MEDS: SALMETEROL/FLUTICASONE 250/50 INHA INH SCH (08:13)
[2016-08-17] MEDS: DOCUSATE SODIUM 100 MG CAP PO SCH (08:13)
[2016-08-17] MEDS: FINASTERIDE 5 MG TAB PO SCH (08:14)
[2016-08-17 08:21] LABS: ADD SCAN DIFF NO
[2016-08-17 08:31] LABS: ABNORMAL IP MESSAGE 1; HEMOGLOBIN 13.3 g/dl (14.0-18.0); LYMPHOCYTES # 0.4 10^3/ul (0.8-2.9); LYMPHOCYTES % 4.7 % (15.0-51.0); MEAN CORPUSCULAR HEMOGLOBIN 27.7 pg (29.0-33.0); MEAN CORPUSCULAR HGB CONC 31.7 g/dl (32.0-37.0); MEAN CORPUSCULAR VOLUME 87.5 fl (82.0-101.0); MEAN PLATELET VOLUME 11.6 fl (7.4-10.4); MONOCYTE # 0.5 10^3/ul (0.3-0.9); MONOCYTES % 5.2 % (0.0-11.0); NEUTROPHIL # 7.9 10^3/ul (1.6-7.5); NEUTROPHILS % 87.7 % (39.0-77.0); PLATELET COUNT 177 10^3/UL (140-415); RED CELL DISTRIBUTION WIDTH 15.1 % (11.5-14.5)
[2016-08-17 08:42] LABS: POTASSIUM 4.1 mmol/L (3.5-5.1)
[2016-08-17 08:44] LABS: CREATININE 0.9 mg/dl (0.61-1.24)
[2016-08-17 08:45] LABS: CALCIUM 8.3 mg/dl (8.4-10.2)
[2016-08-17] MEDS ORDERED: IPRA12.93 INHALATION (10:54)
[2016-08-17] MEDS ORDERED: DOCU-216 PO (10:54)
[2016-08-17] MEDS ORDERED: ADV25050 INH (10:54)
[2016-08-17] MEDS ORDERED: FINA5TAB4 PO (10:54)
[2016-08-17] MEDS ORDERED: BACL10TA PO (10:54)
[2016-08-17] MEDS ORDERED: LORA10CA PO (13:58)
[2016-08-17] MEDS ORDERED: PRED10TA PO (13:58)
[2016-08-17] MEDS ORDERED: FLUT9.9S NASAL (13:58)
[2016-08-17] MEDS ORDERED: FLUTICASONE 0.05% 16 GM NAS SPRAY NASAL SCH (15:30)
--- NOTE | 2016-08-17 16:59 | DS ---
Date/Time of Note Date/Time of Note DATE: 08/17/16 TIME: 16:57 Discharge Summary Admission/Discharge Info Admit Date/Time Aug 11, 2016 at 18:41 Discharge Date/Time Final Diagnosis 1. COPD Exacerbation 2. Hypertension. 3. Prior tobacco abuse 4. Paroxsymal Afib 5. Reported hx of OH and stroke 6. Allergic Sinusitis 7. BPH Patient Condition: Stable Procedures Echocardiogram Report Patient Name: ASHLI MCBRIDE Gender: Male Date: 1940 Study Date: 16-Aug-2016 Insurance Underwriter Sales: [facility] Location: [id number] Ref. Physician: ZENAIDA KRUGER Quality: Technically Difficult Study Procedures: Transthoracic echocardiogram with complete 2D, M-Mode, and doppler examination. Indications: Shortness of breath. 2D/M Mode Doppler Measurement Value Normal Ranges Measurement Value Normal Ranges LVIDd 2D 4.2 3.5 - 5.6 cm AV Peak Martin 1.1 m/sec LVIDs 2D 2.8 2.1 - 4.1 cm AV Peak PG 5.1 mmHg LVPWd 2D 1.3 0.6 - 1.1 cm LVOT Mean Martin 0.7 m/sec IVSd 2D 1.3 0.6 - 1.1 cm LVOT Mean PG 2.6 mmHg AoR Diam 2D 3.5 2.0 - 3.7 cm LVOT Peak Martin 1.0 m/sec EDV 2D 80.5 cm3 LVOT Peak PG 4.4 mmHg ESV 2D 22.3 cm3 LVOT VTI 30.9 cm MV E Peak Martin 0.7 m/sec MV A Peak Martin 0.8 m/sec MV E/A 0.9 MV Decel Time 107 msec MV Decel [place] 7 MV E/A 0.9 Findings Left Ventricle: Normal left ventricular systolic function. Normal left ventricular cavity size. Mild concentric left ventricular hypertrophy. Ejection fraction is visually estimated at 65 %. Abnormal Diastolic Function. Right Ventricle: Normal right ventricular size. Normal right ventricular systolic function. Borderline right ventricular hypertrophy. Left Atrium: The left atrium is normal in size. Right Atrium: Right atrium at upper limits of normal. Mitral Valve: Mild mitral leaflet calcification. Mild mitral annular calcification. Mild mitral valve regurgitation. Aortic Valve: Aortic valve not well visualized. No aortic regurgitation. Tricuspid Valve: Tricuspid valve not well visualized. There is trace tricuspid regurgitation. Pericardium: Trivial pericardial effusion. Aorta: Normal aortic root. IVC: Dilated IVC without respiratory collapse consistent with elevated right atrial pressure. Conclusions 1. Normal left ventricular systolic function. Normal left ventricular cavity size. Mild concentric left ventricular hypertrophy. Ejection fraction is visually estimated at 65 %. Abnormal Diastolic Function. 2. Mild mitral leaflet calcification. Mild mitral annular calcification. Mild mitral valve regurgitation. 3. Aortic valve not well visualized. No aortic regurgitation. 4. Tricuspid valve not well visualized. There is trace tricuspid regurgitation. 5. Dilated IVC without respiratory collapse consistent with elevated right atrial pressure. 6. Trivial pericardial effusion. Electronically Signed By: Stanley Hargrove 16-Aug-2016 14:06:22 -0800 . Hospital Course Home Meds Active Scripts Prednisone (Prednisone) 10 Mg Tab, 10 MG PO DAILY, #21 TAB take 6 pills tomorrow take 5 pills on the next day take 5 pills on the next day take 4 pills on the next day take 3 pills on the next day take 2 pills on the next day take 1 pill on the next day then stop Prov:ZENAIDA KRUGER. 08/17/16 Fluticasone Propionate (Flonase Allergy Relief) 9.9 Ml [place].susp, 1 SPRAY NASAL BID, #1 BOTTLE TO EACH NOSTRIL Prov:ZENAIDA KRUGER 08/17/16 Loratadine* (Claritin*) 10 Mg Capsule, 10 MG PO DAILY for 30 Days, CAP Prov:ZENAIDA KRUGER. 08/17/16 Ipratropium [place]* (Atrovent HFA*) 12.9 Gm Aer.w.adap, 2 PUFF INHALATION Q4H for SHORTNESS OF BREATH, #1 INHALER Prov:ZENAIDA KRUGER. 08/17/16 Salmeterol Xinaf/Fluticasone* (Advair*) 250-50 Diskus Inhaler, 1 INH INH BID, # 1 VIAL Prov:ZENAIDA KRUGER. 08/17/16 Finasteride* (Finasteride*) 5 Mg Tablet, 5 MG PO DAILY for 30 Days, TAB Prov:ZENAIDA KRUGER. 08/17/16 Docusate Sodium (Dok) 100 Mg Capsule, 100 MG PO Q12H for 30 Days, CAP Prov:ZENAIDA KRUGER. 08/17/16 Baclofen* (Baclofen*) 10 Mg Tablet, 10 MG PO QHS Y for MUSCLE SPASMS, #30 TAB Prov:ZENAIDA KRUGER. 08/17/16 Reported Medications Albuterol Sulfate* (Ventolin HFA*) 18 Gm Hfa.aer.ad, 2 PUFF INHALATION Q4H, #1 INHALER 08/11/16 Rivaroxaban* (Xarelto*) 20 Mg Tablet, 20 MG PO WITH DINNER, TAB 08/11/16 Tamsulosin Hcl* (Tamsulosin Hcl*) 0.4 Mg Cap.er.24h, 0.8 MG PO DAILY, CAP 08/11/16 Carvedilol* (Carvedilol*) 3.125 Mg Tablet, 3.125 MG PO BID, #60 TAB 08/11/16 Discontinued Reported Medications Meloxicam* (Mobic*) 15 Mg Tablet, 15 MG PO DAILY, #30 TAB 08/11/16 Levofloxacin* (Levofloxacin*) 500 Mg Tablet, 500 MG PO DAILY, TAB 08/11/16 Ciprofloxacin Hcl* (Ciprofloxacin Hcl*) 500 Mg Tablet, 500 MG PO TID, #14 TAB 08/11/16 Methylprednisolone* (Medrol*) 4 Mg Tab, 8 MG PO QAM, TAB 08/11/16 Nebivolol* (Bystolic*) 5 Mg Tab, 5 MG PO QHS, #30 10/21/15 Theophylline Anhydrous* (Theophylline* ER) 400 Mg Tablet.sa, 200 MG PO BID, TAB.SA 05/28/16 Ergocalciferol* (Drisdol* (Vitamin D2)) 50,000 Unit Capsule, 58119 UNIT PO Q7D, CAP 05/28/16 Carvedilol* (Carvedilol*) 6.25 Mg Tablet, 6.25 MG PO DAILY, #30 10/21/15 Simvastatin (Simvastatin) 20 Mg Tablet, 20 MG PO QHS, #30 10/21/15 Discontinued Scripts Prednisone* (Prednisone*) 20 Mg Tab, 60 MG PO DAILY for 5 Days, TAB Prov:RODRIGUEZ DIALLO MD 05/29/16 Azithromycin* (Azithromycin*) 250 Mg Tablet, 250 MG PO DAILY, #4 TAB Prov:RODRIGUEZ DIALLO MD 05/29/16 Salmeterol Xinaf/Fluticasone* (Advair*) 1 Inh Inha, 1 INH INH BID for 30 Days Prov:MIRYAM SANTOYO 08/26/15 Albuterol Sulfate (Proair Respiclick) 90 Mcg Aer.pow.ba, 2 PUFFS INHALATION q4h Y for SHORTNESS OF BREATH, #1 INHALER Prov:MIRYAM SANTOYO 08/26/15 Pending Labs Laboratory Tests Test 08/16/16 17:23 08/16/16 21:12 08/17/16 08:10 08/17/16 08:11 Bedside Glucose 109mg/dL (70-220) 136mg/dL (70-220) 117mg/dL (70-220) Anion Gap 13 (8-16) Basophils # 0.010^3/ul (0.0-0.1) Basophils % 0.0% (0.0-2.0) Blood Urea Nitrogen 29mg/dl (7-20) Calcium Level 8.3mg/dl (8.4-10.2) Carbon Dioxide Level 37mmol/L (21-31) Chloride Level 93mmol/L (97-110) Creatinine 0.90mg/dl (0.61-1.24) Eosinophils # 0.010^3/ul (0.0-0.5) Eosinophils % 0.0% (0.0-7.0) Glucose Level 120mg/dl (70-220) Hematocrit 42.0% (42.0-52.0) Hemoglobin 13.3g/dl (14.0-18.0) Lymphocytes # 0.410^3/ul (0.8-2.9) Lymphocytes % 4.7% (15.0-51.0) Mean Corpuscular Hemoglobin 27.7pg (29.0-33.0) Mean Corpuscular Hemoglobin Concent 31.7g/dl (32.0-37.0) Mean Corpuscular Volume 87.5fl (82.0-101.0) Mean Platelet Volume 11.6fl (7.4-10.4) Monocytes # 0.510^3/ul (0.3-0.9) Monocytes % 5.2% (0.0-11.0) Neutrophils # 7.910^3/ul (1.6-7.5) Neutrophils % 87.7% (39.0-77.0) Nucleated Red Blood Cells # 0.010^3/ul (0.0-0.0) Nucleated Red Blood Cells % 0.0/100WBC (0.0-0.0) Platelet Count 30017^3/UL (140-415) Potassium Level 4.1mmol/L (3.5-5.1) Red Blood Count 4.8010^6/ul (4.70-6.10) Red Cell Distribution Width 15.1% (11.5-14.5) Sodium Level 139mmol/L (135-144) White Blood Count 9.010^3/ul (4.8-10.8) Test 08/17/16 12:26 Bedside Glucose 125mg/dL (70-220) ZENAIDA KRUGER Aug 17, 2016 16:59
== END 2016-08-17 16:00 | disposition home or self-care (01) | DRG 192 ==
LOC: E/R 15:46 → TEL 18:41 → MS1 08-13 17:40
PROVIDERS: ADMIT Hospitalist; ATTEND Hospitalist
DX: J44.1 Chronic obstructive pulmonary disease with (acute) exacerbation (principal); I48.0 Paroxysmal atrial fibrillation; I10 Essential (primary) hypertension; N40.0 Benign prostatic hyperplasia without lower urinary tract symptoms; E78.00 Pure hypercholesterolemia, unspecified; F17.211 Nicotine dependence, cigarettes, in remission; Z79.01 Long term (current) use of anticoagulants; I25.10 Atherosclerotic heart disease of native coronary artery without angina pectoris; I25.2 Old myocardial infarction; Z86.73 Personal history of transient ischemic attack (TIA), and cerebral infarction without residual deficits; J30.9 Allergic rhinitis, unspecified
CPT/HCPCS: 71010; 80048; 80061; 82962; 83036; 83735; 83880; 84100; 84439; 84443; 84484; 85025; 93005; 93306; 94640; 94644; 94645; 94664; 96372; 96374; 96375; 97110; 97116; 97162; 97166; 97530; C9113; J1815; J1956; J2930; J3105; J7030

== ENCOUNTER 2016-10-18 16:08 | Inpatient (IN) | payer MEDICARE, OTHER ==
[~2016-10-18] VITALS: Ht 165.1 cm; Wt 84.5 kg
[~2016-10-18 16:08] MED LIST changes: +ALBU18HF INHALATION; -ALBU90AE INHALATION; -AZIT250T6 PO; +BACL10TA PO; +CARV3.1260 PO; -CARV6.2579 PO; +DOCU-216 PO; -ERGO500014 PO; +FINA5TAB4 PO; +FLUT9.9S NASAL; +IPRA12.93 INHALATION; +LORA10CA PO; -NEBI5TAB9 PO; +PRED10TA PO; -PRED20TA PO; +RIVA20TA PO; -SIMV20TA6 PO; +TAMS0.4C2 PO; -THEO400T2 PO
--- NOTE | 2016-10-18 16:19 | ERA ---
ER Documentation Chief Complaint Date/Time DATE: 10/18/16 TIME: 16:18 Chief Complaint SOB HPI The patient is 75-year-old male, presenting to the ER because of shortness of breath for the last couple days, worse today. He has similar symptoms previously, denies fever, chills, neck pain, chest pain, dyspnea, abdominal pain , vomiting with dysuria, diarrhea. He smokes socially Past medical history: BPH, COPD, hypertension, CAD, asthma, proximal atrial fibrillation, GERD, history of CHF Past medical history: Cholecystectomy, ventral herniorrhaphy ROS All systems reviewed and are negative except as per history of present illness. Medications Home Meds Active Scripts Loratadine* (Claritin*) 10 Mg Capsule, 10 MG PO DAILY for 30 Days, CAP Prov:LITTLE KRUGERSELENA M. 08/17/16 Salmeterol Xinaf/Fluticasone* (Advair*) 250-50 Diskus Inhaler, 1 INH INH BID, # 1 VIAL Prov:LITTLE KRUGERSELENA M. 08/17/16 Reported Medications Albuterol/Ipratropium* (Combivent Respimat*) 20-100 Mcg/Inh - 4 Gm Aer.w.adap, 1 PUFF INHALATION QID, #1 INHALER 10/18/16 Simvastatin* (Zocor*) 20 Mg Tablet, 20 MG PO QHS, #30 TAB 10/18/16 Nebivolol* (Bystolic*) 5 Mg Tab, 5 MG PO DAILY, #30 TAB 10/18/16 Carvedilol* (Carvedilol*) 6.25 Mg Tablet, 6.25 MG PO DAILY, #60 TAB 10/18/16 Ergocalciferol (Vitamin D2) (VITAMIN D2) 50,000 Unit Capsule, 18639 UNIT PO Q7D , CAP 10/18/16 Albuterol Sulfate* (Ventolin HFA*) 18 Gm Hfa.aer.ad, 2 PUFF INHALATION Q4H, #1 INHALER 08/11/16 Tamsulosin Hcl* (Tamsulosin Hcl*) 0.4 Mg Cap.er.24h, 0.8 MG PO DAILY, CAP 08/11/16 Discontinued Reported Medications Rivaroxaban* (Xarelto*) 20 Mg Tablet, 20 MG PO WITH DINNER, TAB 08/11/16 Carvedilol* (Carvedilol*) 3.125 Mg Tablet, 3.125 MG PO BID, #60 TAB 08/11/16 Discontinued Scripts Prednisone (Prednisone) 10 Mg Tab, 10 MG PO DAILY, #21 TAB take 6 pills tomorrow take 5 pills on the next day take 5 pills on the next day take 4 pills on the next day take 3 pills on the next day take 2 pills on the next day take 1 pill on the next day then stop Prov:ZENAIDA KRUGER. 08/17/16 Fluticasone Propionate (Flonase Allergy Relief) 9.9 Ml [place].susp, 1 SPRAY NASAL BID, #1 BOTTLE TO EACH NOSTRIL Prov:PHILIPP KRUGERTon . 08/17/16 Ipratropium [place]* (Atrovent HFA*) 12.9 Gm Aer.w.adap, 2 PUFF INHALATION Q4H for SHORTNESS OF BREATH, #1 INHALER Prov:PHILIPP KRUGERTon . 08/17/16 Finasteride* (Finasteride*) 5 Mg Tablet, 5 MG PO DAILY for 30 Days, TAB Prov:ZENAIDA KRUGER . 08/17/16 Docusate Sodium (Dok) 100 Mg Capsule, 100 MG PO Q12H for 30 Days, CAP [facility]. 08/17/16 Baclofen* (Baclofen*) 10 Mg Tablet, 10 MG PO QHS Y for MUSCLE SPASMS, #30 TAB Prov:ZENAIDA KRUGER . 08/17/16 Allergies Allergies: Coded Allergies: No Known Allergy (Verified , 10/18/16) PMhx/Soc History of Surgery: No Anesthesia Reaction: No Hx Neurological Disorder: No Hx Respiratory Disorders: Yes (asthma, copd) Hx Cardiac Disorders: Yes (HTN, heart attack, ) Hx Psychiatric Problems: No Hx Miscellaneous Medical Probl: Yes (COPD, HTN, obesity, high cholesterol) Hx Alcohol Use: Yes (past alcohol abuse) Hx Substance Use: No Hx Tobacco Use: Yes Physical Exam Vitals Vital Signs Date Time Temp Pulse Resp B/P Pulse Ox O2 Delivery O2 Flow Rate FiO2 10/18/16 18:30 98.9 75 20 98/52 99 Nasal Cannula 3.0 10/18/16 17:07 80 26 99 Nasal Cannula 3.0 10/18/16 16:25 Nasal Cannula 2 10/18/16 16:23 Nasal Cannula 2.0 10/18/16 16:09 99.2 83 28 141/87 93 Physical Exam Const: No acute distress. Head: Atraumatic. Eyes: Normal Conjunctiva. ENT: Normal External Ears, Nose and Mouth. Neck: Full range of motion. No meningismus. Resp: Bilateral expiratory wheezes Cardio: Regular rate and rhythm, no murmurs. Abd: Soft, non distended, normal bowel sounds, non tender. Skin: No petechiae or rashes. Back: No midline or flank tenderness. Ext: No cyanosis, or edema. Neur: Awake and alert. No focal deficit Psych: Normal Mood and Affect. Result Diagram: 10/18/16 1640 10/18/16 1640 Results 24 hrs Laboratory Tests Test 10/18/16 16:40 10/18/16 18:26 White Blood Count 8.810^3/ul Red Blood Count 4.6410^6/ul Hemoglobin 13.9g/dl Hematocrit 42.4% Mean Corpuscular Volume 91.4fl Mean Corpuscular Hemoglobin 30.0pg Mean Corpuscular Hemoglobin Concent 32.8g/dl Red Cell Distribution Width 14.4% Platelet Count 45422^3/UL Mean Platelet Volume 11.0fl Neutrophils % 55.0% Lymphocytes % 17.0% Monocytes % 15.0% Eosinophils % 13.0% Neutrophils # 4.810^3/ul Lymphocytes # 1.510^3/ul Monocytes # 1.310^3/ul Eosinophils # 1.110^3/ul Prothrombin Time 26.0Sec Prothrombin Time Ratio 2.0 INR International Normalized Ratio 2.35 Activated Partial Thromboplast Time 60.2Sec Sodium Level 137mmol/L Potassium Level 4.4mmol/L Chloride Level 95mmol/L Carbon Dioxide Level 26mmol/L Anion Gap 20 Blood Urea Nitrogen 9mg/dl Creatinine 0.84mg/dl Glucose Level 84mg/dl Lactic Acid Level 1.5mmol/L 1.4mmol/L Calcium Level 9.1mg/dl Total Bilirubin 0.9mg/dl Direct Bilirubin 0.00mg/dl Indirect Bilirubin 0.9mg/dl Aspartate Amino Transf (AST/SGOT) 33IU/L Alanine Aminotransferase (ALT/SGPT) 29IU/L Alkaline Phosphatase 62IU/L Troponin I 0.018ng/ml Total Protein 8.3g/dl Albumin 4.3g/dl Globulin 4.00g/dl Albumin/Globulin Ratio 1.07 Current Medications Medications (Trade) Dose Ordered Sig/Elisa Route PRN Reason Start Time Stop Time Status Last Admin Dose Admin Ipratropium [place] (Atrovent 0.02% (Neb)) 1.5 mg ONCE STAT NEB 10/18/16 16:23 10/18/16 16:25 DC 10/18/16 17:07 Levalbuterol (Xopenex Neb) 3.75 mg ONCE STAT INH 10/18/16 16:23 10/18/16 16:25 DC 10/18/16 17:06 Methylprednisolone Sodium Succinate 125 mg 125 mg ONCE ONCE IV 10/18/16 16:30 10/18/16 16:31 DC 10/18/16 16:45 Levofloxacin/ Dextrose (Levaquin 750 Mg/ D5W 150 ml (Pmx)) 150 ml @ 100 mls/hr ONCE ONCE IVPB 10/18/16 19:30 10/18/16 20:59 10/18/16 20:19 Procedures/[place] [id number] Radiology Main Line: [phone] DIAGNOSTIC IMAGING REPORT Patient: ASHLI MCBRIDE : 1940 Age: 75 Sex: M MR #: [id number] DOS: 10/18/16 1623 Ordering MD: SHANT DALEY MD Location: E/R Room/Bed: PROCEDURE: XR Chest. CLINICAL INDICATION: Cough. Sepsis. TECHNIQUE: Single frontal view. COMPARISON: 08/11/2016. FINDINGS: The lungs are clear. The heart is enlarged. There is blunting of the costophrenic angles bilaterally which may indicate small bilateral pleural effusions, unchanged. There is no pneumothorax. IMPRESSION: 1. Cardiomegaly. 2. Clear lungs. 3. Possible small bilateral pleural effusions. 4. No change from 08/11/2016. RPTAT: QQ .Jayro Rehman MD, MD Date Time Electronically viewed and signed by .Jayro Rehman MD, MD on 10/18/2016 16:49 .R/ CC: SHANT DALEY MD EKG: Read by emergency physician Rate/Rhythm: Normal Sinus Rhythm 86 beats/min QRS, ST, T-waves: No ST elevation, no T inversion, PAC, bigeminy, low voltage QRS Impression: Abnormal EKG MEDICAL MAKING DECISION: The patient is a 75-year-old male, presenting with acute COPD exacerbation. He was treated with Xopenex 3.75 mg and Atrovent 1.5 mg over one hour, Solu-Medrol 125 mg IV, Levaquin IV with good response. The differential diagnoses considered include but are not limited to asthma, COPD, pneumonia, pulmonary embolus, pleural effusion, congestive heart failure. Departure Diagnosis: Primary Impression: COPD exacerbation Condition: Stable Comments I discussed the findings with the patient. I discussed the patient with the on- call hospitalist Dr. Gilmore who was made aware of the lab, the treatment, the patient condition. The patient is admitted to telemetry at 7:35 pm SHANT DALEY MD October 18, 2016 16:19
[2016-10-18] MEDS ORDERED: LEVALBUTEROL (NEB) 1.25 MG/0.5 ML AMP INH STA (16:23)
[2016-10-18] MEDS ORDERED: IPRATROPIUM (NEB) 0.5 MG/2.5 ML AMP NEB STA (16:23)
[2016-10-18] MEDS ORDERED: METHYLPREDNISOLONE 125 MG INJ IV ONE (16:30)
--- NOTE | 2016-10-18 16:49 | RADRPT ---
PROCEDURE: XR Chest. CLINICAL INDICATION: Cough. Sepsis. TECHNIQUE: Single frontal view. COMPARISON: 08/11/2016. FINDINGS: The lungs are clear. The heart is enlarged. There is blunting of the costophrenic angles bilaterally which may indicate small bilateral pleural effusions, unchanged. There is no pneumothorax. IMPRESSION: 1. Cardiomegaly. 2. Clear lungs. 3. Possible small bilateral pleural effusions. 4. No change from 08/11/2016. RPTAT: QQ .Jayro Rehman MD, MD Date Time Electronically viewed and signed by .Jayro Rehman MD, MD on 10/18/2016 16:49 .R/
[2016-10-18 16:56] LABS: ADD SCAN DIFF NO
[2016-10-18 16:58] LABS: HEMATOCRIT 42.4 % (42.0-52.0); HEMOGLOBIN 13.9 g/dl (14.0-18.0); MEAN CORPUSCULAR HGB CONC 32.8 g/dl (32.0-37.0); MEAN CORPUSCULAR VOLUME 91.4 fl (82.0-101.0); PLATELET COUNT 291 10^3/UL (140-415); RED BLOOD COUNT 4.64 10^6/ul (4.70-6.10); RED CELL DISTRIBUTION WIDTH 14.4 % (11.5-14.5); WHITE BLOOD COUNT 8.8 10^3/ul (4.8-10.8)
[2016-10-18] MEDS ORDERED: CARV6.2579 PO (17:16)
[2016-10-18] MEDS ORDERED: ERGO500037 PO (17:16)
[2016-10-18 17:17] LABS: INR 2.35
[2016-10-18] MEDS ORDERED: NEBI5TAB9 PO (17:17)
[2016-10-18 17:18] LABS: PARTIAL THROMBOPLASTIN TIME 60.2 Sec (25.0-35.0)
[2016-10-18] MEDS ORDERED: SIMV20TA PO (17:18)
[2016-10-18 17:19] LABS: ALBUMIN 4.3 g/dl (3.3-4.9); POTASSIUM 4.4 mmol/L (3.5-5.1)
[2016-10-18] MEDS ORDERED: IPRA4AER INHALATION (17:19)
[2016-10-18 17:21] LABS: BILIRUBIN,INDIRECT 0.9 mg/dl (0-1.1); BILIRUBIN,TOTAL 0.9 mg/dl (0.2-1.3); CREATININE 0.84 mg/dl (0.61-1.24)
[2016-10-18 17:22] LABS: ALBUMIN/GLOBULIN RATIO 1.07; TOTAL PROTEIN 8.3 g/dl (6.1-8.1)
[2016-10-18 17:23] LABS: CALCIUM 9.1 mg/dl (8.4-10.2)
[2016-10-18 17:33] LABS: TROPONIN-I 0.018 ng/ml (0.00-0.12)
[2016-10-18 18:50] LABS: EOSINOPHILS # 1.1 10^3/ul (0.0-0.5); LYMPHOCYTES # 1.5 10^3/ul (0.8-2.9); MONOCYTE # 1.3 10^3/ul (0.3-0.9); NEUTROPHIL # 4.8 10^3/ul (1.6-7.5)
[2016-10-18] MEDS ORDERED: LEVOFLOXACIN 750MG/D5W (PMX) 150 ML IVPB ONE (19:30)
[2016-10-18 20:53] LABS: ADD UMIC NO; URINE BILIRUBIN (Dip) NEGATIVE (NEGATIVE); URINE BLOOD (Dip) NEGATIVE (NEGATIVE); URINE COLOR LT. YELLOW (YELLOW); URINE GLUCOSE (Dip) NEGATIVE (NEGATIVE); URINE KETONES (Dip) NEGATIVE (NEGATIVE); URINE LEUKOCYTE ESTERASE (Dip) NEGATIVE (NEGATIVE); URINE NITRITE (Dip) NEGATIVE (NEGATIVE); URINE TOTAL PROTEIN (Dip) NEGATIVE (NEGATIVE); URINE UROBILINOGEN (Dip) 1.0 E.U./dL (0.1-1.0)
[2016-10-19] VITALS (11 sets, daily range): BP systolic 101–135; BP diastolic 51–75; PULSE 62–81; RESP 18; TEMP 98; Ht 165.1 cm; Wt 84.5 kg
[2016-10-19] MEDS ORDERED: ACETAMINOPHEN 325 MG TAB PO PRN (02:00)
[2016-10-19] MEDS ORDERED: ERGOCALCIFEROL 50,000 UNIT CAP PO SCH (02:00)
[2016-10-19] MEDS ORDERED: morphine 2 MG INJ IV PRN (02:00)
[2016-10-19] MEDS ORDERED: ONDANSETRON 4 MG INJ IV PRN (02:00)
[2016-10-19] MEDS: ALBUTEROL/IPRATROPIUM (NEB) 3 ML AMP HHN SCH ×3 (02:00→09:36)
[2016-10-19] MEDS ORDERED: ALBUTEROL/IPRATROPIUM (NEB) 3 ML AMP HHN PRN (02:00)
[2016-10-19] MEDS: GUAIFENESIN/CODEINE 5ML CUP PO PRN ×2 (02:40→20:38)
--- NOTE | 2016-10-19 05:27 | HP ---
Date/Time of Note Date/Time of Note DATE: 10/19/16 TIME: 05:05 Assessment/Plan VTE Prophylaxis VTE Prophylaxis Intervention: heparin Lines/Catheters IV Catheter Type (from Nrs): Peripheral IV Urinary Cath still in place: No Assessment/Plan Assessment/Plan 1. COPD Exacerbation - Oxygen bronchodilators, steroid - Bipap as needed 2. Hypertension: well controlled. - cont meds and adjust as needed 3. Hx of Paroxysmal atrial fibrillation, currently in sinus, - Cont home meds, but I will hold Bystolic and cont coreg - pt was discharged on Xarelto during recent hospitalization last month, but home med doesn't include Xarelto 4. Reported history of NC and CVA - cont beta-ana luisa and statin - will place on Aspirin (home med doesn't include) 5. BPH - cont med 6. GERD - cont PPI 7. Mild diastolic Dysfunction with preserved ejection fraction. - cont cardiac meds 8. Obesity with BMI of 31 - weight loss advised HPI/ROS Admit Date/Time Admit Date/Time October 18, 2016 at 21:23 Hx of Present Illness A 75-year-old male, past medical history of COPD, prior bronchitis, hypertension, Dyslipidemia, prior smoking history, BPH, Paroxysmal A-fib and probable NC and CVA who presents to ER with grandson c/o shortness of breath x 2d ays worsening today and cough, predominantly dry. Pt states that he feels like his airways are closing. Pt was admitted here last month for COPD exacerbation In ER, vitals were stable. CXR showed cardiomegaly and possible small bilateral pleural effusions otherwise clear lungs. He received breathing treatment, Levaquin and steroid. . PMH/Family/Social Past Medical History COPD, prior bronchitis, hypertension, Dyslipidemia, prior smoking history, BPH, Paroxysmal A-fib and probable NC and CVA Past Surgical History Past Surgical Hx: cholecystectomy, other (Hernia Repair x 3) Social History Alcohol Use: occasionally Smoking Status: Current every day smoker Drug Use: none Exam/Review of Systems Vital Signs Vitals Vital Signs Date Time Temp Pulse Resp B/P Pulse Ox O2 Delivery O2 Flow Rate FiO2 10/19/16 04:18 62 10/19/16 04:00 98.1 18 101/51 98 10/19/16 02:55 Nasal Cannula 2.0 Intake and Output 10/18/16 10/18/16 10/19/16 15:00 23:00 07:00 Intake Total 240 ml Output Total 300 ml Balance -60 ml Exam Constitutional: alert, oriented, well developed Head: atraumatic, normocephalic Eyes: EOMI, PERRL Respiratory: wheezing Cardiovascular: nl pulses, regular rate and rhythm Gastrointestinal: non-tender, soft Extremities: normal pulses Labs Result Diagram: 10/18/16 1640 10/18/16 1640 Medications Medications Current Medications Carvedilol (Coreg) 6.25 mg DAILY PO ; Start 10/19/16 at 09:00 Loratadine (Claritin) 10 mg DAILY PO ; Start 10/19/16 at 09:00 Salmeterol Xinafoate/ Fluticasone (Advair 250/50 Diskus) 1 inh BID INH ; Start 10/19/16 at 09:00 Tamsulosin HCl (Flomax) 0.8 mg DAILY PO ; Start 10/19/16 at 09:00 Atorvastatin Calcium (Lipitor) 10 mg DAILY@21 PO ; Start 10/19/16 at 21:00 Methylprednisolone Sodium Succinate (Solu-Medrol) 60 mg Q12 IV ; Start 10/19/16 at 09:00 Ondansetron HCl (Zofran Inj) 4 mg Q6H PRN IV NAUSEA AND/OR VOMITING; Start 10/19 at 02:00 Heparin Sodium (Porcine) (Heparin (5000 Units/0.5 ml)) 5,000 unit BID SC ; Start 10/19/16 at 09:00 Guaifenesin/ Codeine Phosphate (Robitussin Ac Liquid Cup) 10 ml Q4H PRN PO COUGH Last administered on 10/19/16t 02:40; Admin Dose 10 ML; Start 10/19/16 at 02 :00 Acetaminophen (Tylenol Tab) 650 mg Q6H PRN PO PAIN AND OR ELEVATED TEMP; Start 10/19/16 at 02:00 Morphine Sulfate (morphine) 2 mg Q4H PRN IV PAIN; Start 10/19/16 at 02:00 Ergocalciferol (Drisdol) 50,000 unit Mo@09 PO ; Start 10/25/16 at 09:00 KATALINA MARTINEZ MD October 19, 2016 05:17
[2016-10-19] MEDS: METHYLPREDNISOLONE 40 MG INJ IV SCH ×2 (08:25→20:39)
[2016-10-19] MEDS: TAMSULOSIN (SR) 0.4 MG CAP PO SCH (08:25)
[2016-10-19] MEDS: LORATADINE 10 MG TAB PO SCH (08:25)
[2016-10-19] MEDS: SALMETEROL/FLUTICASONE 250/50 INHA INH SCH ×2 (08:25→20:38)
[2016-10-19] MEDS: HEPARIN 5,000 UNIT/0.5 ML VIAL SC SCH ×2 (08:31→20:38)
[2016-10-19 08:37] LABS: ADD SCAN DIFF NO
[2016-10-19 08:51] LABS: BASOPHILS % 0.3 % (0.0-2.0); EOSINOPHILS % 0.4 % (0.0-7.0); HEMATOCRIT 40.9 % (42.0-52.0); HEMOGLOBIN 13.3 g/dl (14.0-18.0); LYMPHOCYTES # 1.1 10^3/ul (0.8-2.9); LYMPHOCYTES % 15.4 % (15.0-51.0); MEAN CORPUSCULAR HEMOGLOBIN 29.4 pg (29.0-33.0); MEAN CORPUSCULAR HGB CONC 32.5 g/dl (32.0-37.0); MEAN CORPUSCULAR VOLUME 90.5 fl (82.0-101.0); MEAN PLATELET VOLUME 11.1 fl (7.4-10.4); MONOCYTE # 0.3 10^3/ul (0.3-0.9); MONOCYTES % 4.8 % (0.0-11.0); NEUTROPHIL # 5.6 10^3/ul (1.6-7.5); NEUTROPHILS % 78.5 % (39.0-77.0); PLATELET COUNT 270 10^3/UL (140-415); RED BLOOD COUNT 4.52 10^6/ul (4.70-6.10); RED CELL DISTRIBUTION WIDTH 14.1 % (11.5-14.5); WHITE BLOOD COUNT 7.2 10^3/ul (4.8-10.8)
[2016-10-19 09:27] LABS: ALBUMIN 4.2 g/dl (3.3-4.9); ALBUMIN/GLOBULIN RATIO 1.13; BILIRUBIN,INDIRECT 0.9 mg/dl (0-1.1); BILIRUBIN,TOTAL 0.9 mg/dl (0.2-1.3); CALCIUM 9.6 mg/dl (8.4-10.2); CHOL/HDL RATIO 4.7 RATIO; CREATININE 0.84 mg/dl (0.61-1.24); PHOSPHORUS 3.8 mg/dl (2.5-4.9); TOTAL PROTEIN 7.9 g/dl (6.1-8.1)
--- NOTE | 2016-10-19 10:15 | PN ---
Date/Time of Note Date/Time of Note DATE: 10/19/16 TIME: 10:10 Assessment/Plan VTE Prophylaxis VTE Prophylaxis Intervention: heparin Lines/Catheters IV [facility]from [facility] Peripheral IV Urinary Cath still in place: No Assessment/Plan Chief Complaint/Hosp Course Assessment and plan 1. COPD exacerbation. Continue bronchodilators. On steroid at this time. With clinical improvement. Continue on O2. Titrate as tolerated. 2. Essential hypertension. Continue antihypertensive. Will just need. 3. History of paroxysmal atrial fibrillation. Rate controlled at this time. Continue on Coreg for now. 4. History of [place] and CVA. Remains on beta-ana luisa. On statin at this time. Continue on aspirin. 5. BPH. Continue on Flomax 6. History of CHF with diastolic dysfunction. Continue optimization of cardiovascular medications 7. Obesity. Weight reduction was advised Disposition plan: Continue bronchodilators. Continue on steroid treatment. Await for clinical improvement of respiratory status. Discussed plan of care with Dr. Poole Problems: Subjective 24 Hr Interval Summary Free Text/Dictation She reports having some shortness of breath. Less wheezing reported. Exam/Review of Systems Vital Signs Vitals Vital Signs Date Time Temp Pulse Resp B/P Pulse Ox O2 Delivery O2 Flow Rate FiO2 10/19/16 09:35 1.0 10/19/16 09:35 70 20 96 Nasal Cannula 10/19/16 08:11 97.8 127/69 Intake and Output 10/18/16 10/18/16 10/19/16 15:00 23:00 07:00 Intake Total 240 ml Output Total 700 ml Balance -460 ml Exam Constitutional: alert, oriented Eyes: nl conjunctiva Neck: supple, No jvd Respiratory: diminished breath sounds, wheezing Cardiovascular: regular rate and rhythm Gastrointestinal: non-tender, soft Extremities: edema (ble minimal ) Neurological: [employer] II-XII intact, nl mental status, nl speech Skin: nl turgor Results Result Diagram: 10/19/1680410/19/16804 Results 24 hrs Laboratory Tests Test 10/18/16 16:40 10/18/16 18:26 10/18/16 20:35 10/18/16 20:50 White Blood Count 8.8 Red Blood Count 4.64 L Hemoglobin 13.9 L Hematocrit 42.4 Mean Corpuscular Volume 91.4 Mean Corpuscular Hemoglobin 30.0 Mean Corpuscular Hemoglobin Concent 32.8 Red Cell Distribution Width 14.4 Platelet Count 291 # Mean Platelet Volume 11.0 H Neutrophils % 55.0 Lymphocytes % 17.0 Monocytes % 15.0 H Eosinophils % 13.0 H Neutrophils # 4.8 Lymphocytes # 1.5 Monocytes # 1.3 H Eosinophils # 1.1 H Prothrombin Time 26.0 #H Prothrombin Time Ratio 2.0 INR International Normalized Ratio 2.35 Activated Partial Thromboplast Time 60.2 H Sodium Level 137 Potassium Level 4.4 Chloride Level 95 L Carbon Dioxide Level 26 Anion Gap 20 H Blood Urea Nitrogen 9 Creatinine 0.84 Glucose Level 84 Lactic Acid Level 1.5 1.4 2.3 H Calcium Level 9.1 Total Bilirubin 0.9 Direct Bilirubin 0.00 Indirect Bilirubin 0.9 Aspartate Amino Transf (AST/SGOT) 33 Alanine Aminotransferase (ALT/SGPT) 29 Alkaline Phosphatase 62 Troponin I 0.018 Total Protein 8.3 H Albumin 4.3 Globulin 4.00 H Albumin/Globulin Ratio 1.07 Urine Color LT. YELLOW Urine Clarity CLEAR Urine pH 6.0 Urine Specific [place] <=1.005 L Urine Ketones NEGATIVE Urine Nitrite NEGATIVE Urine Bilirubin NEGATIVE Urine Urobilinogen 1.0 E.U./dL Urine Leukocyte Esterase NEGATIVE Urine Hemoglobin NEGATIVE Urine Glucose NEGATIVE Urine Total Protein NEGATIVE Test 10/19/16 08:05 White Blood Count 7.2 Red Blood Count 4.52 L Hemoglobin 13.3 L Hematocrit 40.9 L Mean Corpuscular Volume 90.5 Mean Corpuscular Hemoglobin 29.4 Mean Corpuscular Hemoglobin Concent 32.5 Red Cell Distribution Width 14.1 Platelet Count 270 Mean Platelet Volume 11.1 H Neutrophils % 78.5 H Lymphocytes % 15.4 Monocytes % 4.8 Eosinophils % 0.4 Basophils % 0.3 Nucleated Red Blood Cells % 0.0 Neutrophils # 5.6 Lymphocytes # 1.1 Monocytes # 0.3 Eosinophils # 0.0 Basophils # 0.0 Nucleated Red Blood Cells # 0.0 Sodium Level 133 L Potassium Level 5.0 Chloride Level 98 Carbon Dioxide Level 27 Anion Gap 13 # Blood Urea Nitrogen 13 Creatinine 0.84 Glucose Level 136 # Lactic Acid Level 1.6 Calcium Level 9.6 Phosphorus Level 3.8 Magnesium Level 2.0 Total Bilirubin 0.9 Direct Bilirubin 0.00 Indirect Bilirubin 0.9 Aspartate Amino Transf (AST/SGOT) 26 Alanine Aminotransferase (ALT/SGPT) 28 Alkaline Phosphatase 66 Total Protein 7.9 Albumin 4.2 Globulin 3.70 H Albumin/Globulin Ratio 1.13 Triglycerides Level 73 Cholesterol Level 162 LDL Cholesterol, Calculated 113 HDL Cholesterol 34 Cholesterol/HDL Ratio 4.7 Medications Medications Current Medications Carvedilol (Coreg) 6.25 mg DAILY PO Last administered on 10/19/16 08:26; Admin Dose 6.25 MG; Start 10/19/16 at 09:00 Loratadine (Claritin) 10 mg DAILY PO Last administered on 10/19/16 08:25; Admin Dose 10 MG; Start 10/19/16 at 09:00 Salmeterol Xinafoate/ Fluticasone (Advair 250/50 Diskus) 1 inh BID INH Last administered on 10/19/16 08:25; Admin Dose 1 INH; Start 10/19/16 at 09:00 Tamsulosin HCl (Flomax) 0.8 mg DAILY PO Last administered on 10/19/16 08:25; Admin Dose 0.8 MG; Start 10/19/16 at 09:00 Atorvastatin Calcium (Lipitor) 10 mg DAILY@21 PO ; Start 10/19/16 at 21:00 Methylprednisolone Sodium Succinate (Solu-Medrol) 60 mg Q12 IV Last administered on 10/19/16 08:25; Admin Dose 60 MG; Start 10/19/16 at 09:00 Ondansetron HCl (Zofran Inj) 4 mg Q6H PRN IV NAUSEA AND/OR VOMITING; Start 10/19 at 02:00 Heparin Sodium (Porcine) (Heparin (5000 Units/0.5 ml)) 5,000 unit BID SC Last administered on 10/19/16 08:31; Admin Dose 5,000 UNIT; Start 10/19/16 at 09:00 Guaifenesin/ Codeine Phosphate (Robitussin Ac Liquid Cup) 10 ml Q4H PRN PO COUGH Last administered on 10/19/16 02:40; Admin Dose 10 ML; Start 10/19/16 at 02 :00 Acetaminophen (Tylenol Tab) 650 mg Q6H PRN PO PAIN AND OR ELEVATED TEMP; Start 10/19/16 at 02:00 Morphine Sulfate (morphine) 2 mg Q4H PRN IV PAIN; Start 10/19/16 at 02:00 Ergocalciferol (Drisdol) 50,000 unit Mo@09 PO ; Start 10/25/16 at 09:00 MIRYAM SANTOYO October 19, 2016 10:15
[2016-10-19] MEDS: ATORVASTATIN 10 MG TAB PO SCH (20:39)
[2016-10-19] MEDS ORDERED: NON-FORMULARY/PATIENT OWN MED (Simvastatin* (Zocor*) 20 MG) PO SCH (21:00)
[2016-10-20] VITALS (12 sets, daily range): BP systolic 115–134; BP diastolic 61–72; PULSE 56–70; RESP 18–21
[2016-10-20] MEDS: GUAIFENESIN/CODEINE 5ML CUP PO PRN ×2 (05:09→20:18)
[2016-10-20 07:35] LABS: ADD SCAN DIFF NO
[2016-10-20 07:44] LABS: BASOPHILS % 0.1 % (0.0-2.0); HEMOGLOBIN 12.7 g/dl (14.0-18.0); LYMPHOCYTES # 1.1 10^3/ul (0.8-2.9); LYMPHOCYTES % 10.9 % (15.0-51.0); MEAN CORPUSCULAR HEMOGLOBIN 29.3 pg (29.0-33.0); MEAN CORPUSCULAR HGB CONC 32.6 g/dl (32.0-37.0); MEAN CORPUSCULAR VOLUME 90.1 fl (82.0-101.0); MEAN PLATELET VOLUME 11.3 fl (7.4-10.4); MONOCYTE # 0.7 10^3/ul (0.3-0.9); MONOCYTES % 6.4 % (0.0-11.0); NEUTROPHIL # 8.5 10^3/ul (1.6-7.5); PLATELET COUNT 257 10^3/UL (140-415); RED BLOOD COUNT 4.33 10^6/ul (4.70-6.10); RED CELL DISTRIBUTION WIDTH 14.3 % (11.5-14.5); WHITE BLOOD COUNT 10.3 10^3/ul (4.8-10.8)
[2016-10-20 08:07] LABS: POTASSIUM 4.2 mmol/L (3.5-5.1)
[2016-10-20 08:10] LABS: CREATININE 0.89 mg/dl (0.61-1.24)
[2016-10-20 08:11] LABS: CALCIUM 9.4 mg/dl (8.4-10.2)
[2016-10-20] MEDS: SALMETEROL/FLUTICASONE 250/50 INHA INH SCH ×2 (08:43→20:18)
[2016-10-20] MEDS: TAMSULOSIN (SR) 0.4 MG CAP PO SCH (08:44)
[2016-10-20] MEDS: METHYLPREDNISOLONE 40 MG INJ IV SCH ×2 (08:44→20:18)
[2016-10-20] MEDS: LORATADINE 10 MG TAB PO SCH (08:44)
[2016-10-20] MEDS: HEPARIN 5,000 UNIT/0.5 ML VIAL SC SCH ×2 (08:47→20:25)
--- NOTE | 2016-10-20 10:03 | PN ---
Date/Time of Note Date/Time of Note DATE: 10/20/16 TIME: 10:00 Assessment/Plan VTE Prophylaxis VTE Prophylaxis Intervention: SCD's Lines/Catheters IV [facility] Type (from [facility] Saline Lock Urinary Cath still in place: No Assessment/Plan Chief Complaint/Hosp Course Assessment and plan 1. COPD exacerbation. Continue bronchodilators. On steroid at this time. Off O2. Still wheezing. Continue current treatment 2. Essential hypertension. Continue antihypertensive. Will just need. 3. History of paroxysmal atrial fibrillation. Rate controlled at this time. Continue on Coreg for now. 4. History of CA and CVA. Remains on beta-ana luisa. On statin at this time. Continue on aspirin. 5. BPH. Continue on Flomax 6. History of CHF with diastolic dysfunction. Continue optimization of cardiovascular medications 7. Obesity. Weight reduction was advised Disposition plan: Still noted with active bronchospasm. Continue bronchodilators and steroid. Await clinical improvement of respiratory status Discussed plan of care with Dr. Poole Problems: Subjective 24 Hr Interval Summary Free Text/Dictation Still in moderate wheezing. Less shortness of breath reported at this time Exam/Review of Systems Vital Signs Vitals Vital Signs Date Time Temp Pulse Resp B/P Pulse Ox O2 Delivery O2 Flow Rate FiO2 10/20/16 08:32 60 10/20/16 08:16 Nasal Cannula 2.0 10/20/16 08:01 97.8 18 134/71 96 Exam Constitutional: alert, oriented Psych: nl mood/affect Head: normocephalic Eyes: nl conjunctiva Neck: supple, No jvd Respiratory: wheezing Cardiovascular: regular rate and rhythm Gastrointestinal: non-tender, soft Musculoskeletal: nl extremities to inspection Results Result Diagram: 10/20/16 0704 10/20/16 0704 Results 24 hrs Laboratory Tests Test 10/20/16 07:04 White Blood Count 10.3 # Red Blood Count 4.33 L Hemoglobin 12.7 L Hematocrit 39.0 L Mean Corpuscular Volume 90.1 Mean Corpuscular Hemoglobin 29.3 Mean Corpuscular Hemoglobin Concent 32.6 Red Cell Distribution Width 14.3 Platelet Count 257 Mean Platelet Volume 11.3 H Neutrophils % 82.0 H Lymphocytes % 10.9 L Monocytes % 6.4 Eosinophils % 0.0 Basophils % 0.1 Nucleated Red Blood Cells % 0.0 Neutrophils # 8.5 H Lymphocytes # 1.1 Monocytes # 0.7 Eosinophils # 0.0 Basophils # 0.0 Nucleated Red Blood Cells # 0.0 Sodium Level 136 Potassium Level 4.2 Chloride Level 96 L Carbon Dioxide Level 28 Anion Gap 16 Blood Urea Nitrogen 23 H Creatinine 0.89 Glucose Level 148 Calcium Level 9.4 Medications Medications Current Medications Carvedilol (Coreg) 6.25 mg DAILY PO Last administered on 10/20/16 08:44; Admin Dose 6.25 MG; Start 10/19/16 at 09:00 Loratadine (Claritin) 10 mg DAILY PO Last administered on 10/20/16 08:44; Admin Dose 10 MG; Start 10/19/16 at 09:00 Salmeterol Xinafoate/ Fluticasone (Advair 250/50 Diskus) 1 inh BID INH Last administered on 10/20/16 08:43; Admin Dose 1 INH; Start 10/19/16 at 09:00 Tamsulosin HCl (Flomax) 0.8 mg DAILY PO Last administered on 10/20/16 08:44; Admin Dose 0.8 MG; Start 10/19/16 at 09:00 Atorvastatin Calcium (Lipitor) 10 mg DAILY@21 PO Last administered on 10/19/16 20:39; Admin Dose 10 MG; Start 10/19/16 at 21:00 Methylprednisolone Sodium Succinate (Solu-Medrol) 60 mg Q12 IV Last administered on 10/20/16 08:44; Admin Dose 60 MG; Start 10/19/16 at 09:00 Ondansetron HCl (Zofran Inj) 4 mg Q6H PRN IV NAUSEA AND/OR VOMITING; Start 10/19 at 02:00 Heparin Sodium (Porcine) (Heparin (5000 Units/0.5 ml)) 5,000 unit BID SC Last administered on 10/20/16 08:47; Admin Dose 5,000 UNIT; Start 10/19/16 at 09:00 Guaifenesin/ Codeine Phosphate (Robitussin Ac Liquid Cup) 10 ml Q4H PRN PO COUGH Last administered on 10/20/16 05:09; Admin Dose 10 ML; Start 10/19/16 at 02:00 Acetaminophen (Tylenol Tab) 650 mg Q6H PRN PO PAIN AND OR ELEVATED TEMP; Start 10/19/16 at 02:00 Morphine Sulfate (morphine) 2 mg Q4H PRN IV PAIN; Start 10/19/16 at 02:00 Ergocalciferol (Drisdol) 50,000 unit Mo@09 PO ; Start 10/25/16 at 09:00 MIRYAM SANTOYO October 20, 2016 10:03
[2016-10-20] MEDS: ALBUTEROL/IPRATROPIUM (NEB) 3 ML AMP HHN SCH ×2 (14:05→20:35)
[2016-10-20] MEDS: ATORVASTATIN 10 MG TAB PO SCH (20:18)
[2016-10-21] VITALS (12 sets, daily range): BP systolic 91–152; BP diastolic 53–70; PULSE 59–72; RESP 18–20
[2016-10-21] MEDS: ALBUTEROL/IPRATROPIUM (NEB) 3 ML AMP HHN SCH ×3 (08:08→20:33)
[2016-10-21 08:38] LABS: ADD SCAN DIFF NO
[2016-10-21 08:48] LABS: HEMATOCRIT 40.9 % (42.0-52.0); HEMOGLOBIN 13.3 g/dl (14.0-18.0); LYMPHOCYTES # 0.9 10^3/ul (0.8-2.9); LYMPHOCYTES % 9.4 % (15.0-51.0); MEAN CORPUSCULAR HEMOGLOBIN 29.3 pg (29.0-33.0); MEAN CORPUSCULAR HGB CONC 32.5 g/dl (32.0-37.0); MEAN CORPUSCULAR VOLUME 90.1 fl (82.0-101.0); MEAN PLATELET VOLUME 11.4 fl (7.4-10.4); MONOCYTE # 0.6 10^3/ul (0.3-0.9); NEUTROPHIL # 7.7 10^3/ul (1.6-7.5); NEUTROPHILS % 84.3 % (39.0-77.0); PLATELET COUNT 251 10^3/UL (140-415); RED BLOOD COUNT 4.54 10^6/ul (4.70-6.10); RED CELL DISTRIBUTION WIDTH 14.3 % (11.5-14.5); WHITE BLOOD COUNT 9.1 10^3/ul (4.8-10.8)
[2016-10-21 09:23] LABS: POTASSIUM 4.3 mmol/L (3.5-5.1)
[2016-10-21] MEDS: SALMETEROL/FLUTICASONE 250/50 INHA INH SCH ×2 (09:24→21:57)
[2016-10-21 09:25] LABS: CREATININE 0.86 mg/dl (0.61-1.24)
[2016-10-21] MEDS: LORATADINE 10 MG TAB PO SCH (09:25)
[2016-10-21] MEDS: TAMSULOSIN (SR) 0.4 MG CAP PO SCH (09:25)
[2016-10-21] MEDS: METHYLPREDNISOLONE 40 MG INJ IV SCH ×2 (09:25→21:57)
[2016-10-21 09:26] LABS: CALCIUM 9.4 mg/dl (8.4-10.2)
[2016-10-21] MEDS: HEPARIN 5,000 UNIT/0.5 ML VIAL SC SCH ×2 (09:31→21:58)
[2016-10-21] MEDS ORDERED: ALBU18HF INHALATION (09:32)
[2016-10-21] MEDS ORDERED: PRED10TA PO (09:32)
[2016-10-21] MEDS ORDERED: UDROBAC PO (09:32)
[2016-10-21] MEDS ORDERED: TIOT18CA INHALATION (09:32)
[2016-10-21] MEDS ORDERED: ADV25050 INH (09:32)
[2016-10-21] MEDS ORDERED: CARV6.2579 PO (09:32)
--- NOTE | 2016-10-21 10:34 | PN ---
Date/Time of Note Date/Time of Note DATE: 10/21/16 TIME: 10:29 Assessment/Plan VTE Prophylaxis VTE Prophylaxis Intervention: SCD's Lines/Catheters IV C[facility]ter Type (from [facility]): Saline Lock Urinary Cath still in place: No Assessment/Plan Chief Complaint/Hosp Course Assessment and plan 1. COPD exacerbation. Continue bronchodilators scheduled . On steroid at this time. Off O2. Still wheezing. beta ana luisa on hold, 2. Essential hypertension. Continue antihypertensive. Will just need. stable 3. History of paroxysmal atrial fibrillation. Rate controlled at this time. continue telemetry monitoring 4. History of CA and CVA. Remains on beta-ana luisa. On statin at this time. Continue on aspirin. 5. BPH. Continue on Flomax 6. History of CHF with diastolic dysfunction. Continue optimization of cardiovascular medications 7. Obesity. Weight reduction was advised Disposition plan: Still noted with active bronchospasm. cont bronchodilators around the clock. resp status slowly improving. cont inpatient monitoring Discussed plan of care with Dr. Poole Problems: Subjective 24 Hr Interval Summary Free Text/Dictation Resting at this time. Does still report having some wheezing. States he has a little bit cough. Does report better breathing though Exam/Review of Systems Vital Signs Vitals Vital Signs Date Time Temp Pulse Resp B/P Pulse Ox O2 Delivery O2 Flow Rate FiO2 10/21/16 08:55 61 10/21/16 08:08 20 94 21 10/21/16 08:00 97.7 143/65 10/20/16 16:39 1.0 10/20/16 08:16 Nasal Cannula Intake and Output 10/20/16 10/20/16 10/21/16 15:00 23:00 07:00 Intake Total 300 ml Output Total 500 ml 550 ml Balance -500 ml -250 ml Exam Constitutional: alert Psych: nl mood/affect Eyes: nl conjunctiva Respiratory: wheezing Cardiovascular: regular rate and rhythm Gastrointestinal: non-tender, soft Neurological: nl mental status, nl speech Skin: nl turgor Results Result Diagram: 10/21/16 0755 10/21/16 0755 Results 24 hrs Laboratory Tests Test 10/21/16 07:55 White Blood Count 9.1 Red Blood Count 4.54 L Hemoglobin 13.3 L Hematocrit 40.9 L Mean Corpuscular Volume 90.1 Mean Corpuscular Hemoglobin 29.3 Mean Corpuscular Hemoglobin Concent 32.5 Red Cell Distribution Width 14.3 Platelet Count 251 Mean Platelet Volume 11.4 H Neutrophils % 84.3 H Lymphocytes % 9.4 L Monocytes % 6.0 Eosinophils % 0.0 Basophils % 0.0 Nucleated Red Blood Cells % 0.0 Neutrophils # 7.7 H Lymphocytes # 0.9 Monocytes # 0.6 Eosinophils # 0.0 Basophils # 0.0 Nucleated Red Blood Cells # 0.0 Sodium Level 135 Potassium Level 4.3 Chloride Level 94 L Carbon Dioxide Level 28 Anion Gap 17 H Blood Urea Nitrogen 26 H Creatinine 0.86 Glucose Level 129 Calcium Level 9.4 Medications Medications Current Medications Loratadine (Claritin) 10 mg DAILY PO Last administered on 10/21/16 09:25; Admin Dose 10 MG; Start 10/19/16 at 09:00 Salmeterol Xinafoate/ Fluticasone (Advair 250/50 Diskus) 1 inh BID INH Last administered on 10/21/16 09:24; Admin Dose 1 INH; Start 10/19/16 at 09:00 Tamsulosin HCl (Flomax) 0.8 mg DAILY PO Last administered on 10/21/16 09:25; Admin Dose 0.8 MG; Start 10/19/16 at 09:00 Atorvastatin Calcium (Lipitor) 10 mg DAILY@21 PO Last administered on 20:18; Admin Dose 10 MG; Start 10/19/16 at 21:00 Methylprednisolone Sodium Succinate (Solu-Medrol) 60 mg Q12 IV Last administered on 10/21/16 09:25; Admin Dose 60 MG; Start 10/19/16 at 09:00 Ondansetron HCl (Zofran Inj) 4 mg Q6H PRN IV NAUSEA AND/OR VOMITING; Start 10/19 at 02:00 Heparin Sodium (Porcine) (Heparin (5000 Units/0.5 ml)) 5,000 unit BID SC Last administered on 10/21/16 09:31; Admin Dose 5,000 UNIT; Start 10/19/16 at 09:00 Guaifenesin/ Codeine Phosphate (Robitussin Ac Liquid Cup) 10 ml Q4H PRN PO COUGH Last administered on 10/20/16 20:18; Admin Dose 10 ML; Start 10/19/16 at 02:00 Acetaminophen (Tylenol Tab) 650 mg Q6H PRN PO PAIN AND OR ELEVATED TEMP; Start 10/19/16 at 02:00 Morphine Sulfate (morphine) 2 mg Q4H PRN IV PAIN; Start 10/19/16 at 02:00 Ergocalciferol (Drisdol) 50,000 unit Mo@09 PO ; Start 10/25/16 at 09:00 Lisinopril (Zestril) 5 mg DAILY PO ; Start 10/21/16 at 10:30 MIRYAM SANTOYO October 21, 2016 10:34
[2016-10-21] MEDS: LISINOPRIL 5 MG TAB PO SCH (12:18)
[2016-10-21] MEDS ORDERED: MAGNESIUM HYDROXIDE 30ML CUP PO PRN (21:30)
[2016-10-21] MEDS: ATORVASTATIN 10 MG TAB PO SCH (21:56)
[2016-10-22] VITALS (8 sets, daily range): BP systolic 95–121; BP diastolic 50–62; PULSE 54–67; RESP 17–20
[2016-10-22] MEDS: ALBUTEROL/IPRATROPIUM (NEB) 3 ML AMP HHN SCH ×2 (01:54→07:54)
[2016-10-22 07:53] LABS: ADD SCAN DIFF NO
[2016-10-22 08:04] LABS: HEMATOCRIT 40.6 % (42.0-52.0); HEMOGLOBIN 13.1 g/dl (14.0-18.0); LYMPHOCYTES # 0.9 10^3/ul (0.8-2.9); LYMPHOCYTES % 9.5 % (15.0-51.0); MEAN CORPUSCULAR HEMOGLOBIN 29.2 pg (29.0-33.0); MEAN CORPUSCULAR HGB CONC 32.3 g/dl (32.0-37.0); MEAN CORPUSCULAR VOLUME 90.6 fl (82.0-101.0); MEAN PLATELET VOLUME 11.4 fl (7.4-10.4); MONOCYTE # 0.6 10^3/ul (0.3-0.9); MONOCYTES % 6.5 % (0.0-11.0); NEUTROPHIL # 7.4 10^3/ul (1.6-7.5); NEUTROPHILS % 83.2 % (39.0-77.0); PLATELET COUNT 255 10^3/UL (140-415); RED BLOOD COUNT 4.48 10^6/ul (4.70-6.10); RED CELL DISTRIBUTION WIDTH 14.2 % (11.5-14.5); WHITE BLOOD COUNT 8.9 10^3/ul (4.8-10.8)
[2016-10-22 08:32] LABS: CALCIUM 8.9 mg/dl (8.4-10.2); CREATININE 0.86 mg/dl (0.61-1.24); POTASSIUM 4.1 mmol/L (3.5-5.1)
[2016-10-22] MEDS: LISINOPRIL 5 MG TAB PO SCH (09:28)
[2016-10-22] MEDS: SALMETEROL/FLUTICASONE 250/50 INHA INH SCH (09:28)
[2016-10-22] MEDS: LORATADINE 10 MG TAB PO SCH (09:28)
[2016-10-22] MEDS: TAMSULOSIN (SR) 0.4 MG CAP PO SCH (09:28)
[2016-10-22] MEDS: METHYLPREDNISOLONE 40 MG INJ IV SCH (09:28)
[2016-10-22] MEDS: HEPARIN 5,000 UNIT/0.5 ML VIAL SC SCH (09:30)
--- NOTE | 2016-10-22 10:28 | PDOCDIS ---
Discharge Instructions DIAGNOSIS Discharge Diagnosis: 1. COPD with exacerbation 2. Essential hypertension 3. afib CONDITION Patient Condition: Stable HOME CARE INSTRUCTIONS: Special Diet: Cardiac FOLLOW UP/APPOINTMENTS Appointments 1. Follow-up with your primary care provider within a week MIRYAM SANTOYO October 22, 2016 10:28
[2016-10-25] MEDS ORDERED: ERGOCALCIFEROL 50,000 UNIT CAP PO SCH (09:00)
== END 2016-10-22 13:45 | disposition home or self-care (01) | DRG 192 ==
LOC: E/R 16:08 → MS4 21:23 → OBSVTOIN 10-19 14:54
PROVIDERS: ADMIT Internal Medicine; ATTEND Internal Medicine
DX: J44.1 Chronic obstructive pulmonary disease with (acute) exacerbation (principal); I10 Essential (primary) hypertension; F17.210 Nicotine dependence, cigarettes, uncomplicated; I25.2 Old myocardial infarction; Z86.73 Personal history of transient ischemic attack (TIA), and cerebral infarction without residual deficits; E66.9 Obesity, unspecified; Z68.31 Body mass index [BMI] 31.0-31.9, adult; N40.0 Benign prostatic hyperplasia without lower urinary tract symptoms
CPT/HCPCS: 36415; 71010; 80048; 80053; 80061; 81003; 83605; 83735; 84100; 84484; 85025; 85610; 85730; 87040; 87086; 93005; 94640; 94644; 94664; 96374; 96375; 97162; G0378; J1644; J1956; J2920; J2930

== ENCOUNTER 2016-10-27 13:33 | Inpatient (IN) | payer MEDICARE, OTHER ==
[2016-10-27] VITALS (8 sets, daily range): BP systolic 108–145; BP diastolic 59–71; PULSE 64–71; RESP 17–20; TEMP 98.6; Ht 165.1 cm; Wt 80.0 kg
[~2016-10-27] VITALS: Ht 165.1 cm; Wt 80.0 kg
[~2016-10-27 13:33] MED LIST changes: -BACL10TA PO; -CARV3.1260 PO; +CARV6.2579 PO; -DOCU-216 PO; +ERGO500037 PO; -FINA5TAB4 PO; -FLUT9.9S NASAL; -IPRA12.93 INHALATION; +IPRA4AER INHALATION; +NEBI5TAB9 PO; -RIVA20TA PO; +SIMV20TA PO; +TIOT18CA INHALATION; +UDROBAC PO
[2016-10-27] MEDS ORDERED: ALBUTEROL 0.5% (NEB) 2.5 MG/0.5 ML AMP INH STA (13:53)
[2016-10-27] MEDS ORDERED: IPRATROPIUM (NEB) 0.5 MG/2.5 ML AMP INH STA (13:53)
[2016-10-27] MEDS ORDERED: MAGNESIUM SULFATE 1 GM/D5W 100 ML IVPB ONE (14:00)
[2016-10-27 14:16] LABS: ADD SCAN DIFF NO
[2016-10-27 14:19] LABS: BASOPHILS % 0.2 % (0.0-2.0); EOSINOPHILS # 0.3 10^3/ul (0.0-0.5); HEMATOCRIT 40.7 % (42.0-52.0); HEMOGLOBIN 13.4 g/dl (14.0-18.0); LYMPHOCYTES # 1.3 10^3/ul (0.8-2.9); LYMPHOCYTES % 14.4 % (15.0-51.0); MEAN CORPUSCULAR HEMOGLOBIN 30.1 pg (29.0-33.0); MEAN CORPUSCULAR HGB CONC 32.9 g/dl (32.0-37.0); MEAN CORPUSCULAR VOLUME 91.5 fl (82.0-101.0); MEAN PLATELET VOLUME 11.4 fl (7.4-10.4); MONOCYTE # 1.1 10^3/ul (0.3-0.9); MONOCYTES % 12.8 % (0.0-11.0); NEUTROPHIL # 5.8 10^3/ul (1.6-7.5); NEUTROPHILS % 67.3 % (39.0-77.0); PLATELET COUNT 266 10^3/UL (140-415); RED BLOOD COUNT 4.45 10^6/ul (4.70-6.10); RED CELL DISTRIBUTION WIDTH 13.8 % (11.5-14.5); WHITE BLOOD COUNT 8.7 10^3/ul (4.8-10.8)
[2016-10-27 14:36] LABS: ALBUMIN 3.5 g/dl (3.3-4.9); CHLORIDE 97 mmol/L (97-110); POTASSIUM 4.4 mmol/L (3.5-5.1); SODIUM 137 mmol/L (135-144)
[2016-10-27 14:38] LABS: ANION GAP 16 (8-16); BILIRUBIN,INDIRECT 0.2 mg/dl (0-1.1); BILIRUBIN,TOTAL 0.2 mg/dl (0.2-1.3); CARBON DIOXIDE 28 mmol/L (21-31); CREATININE 0.88 mg/dl (0.61-1.24)
[2016-10-27 14:39] LABS: ALANINE AMINOTRANSFERASE 40 IU/L (13-69); ALBUMIN/GLOBULIN RATIO 1.09; ALKALINE PHOSPHATASE 67 IU/L (42-121); ASPARTATE AMINO TRANSFERASE 26 IU/L (15-46); BLOOD UREA NITROGEN 18 mg/dl (7-20); CALCIUM 8.8 mg/dl (8.4-10.2); GLUCOSE 128 mg/dl (70-220); TOTAL PROTEIN 6.7 g/dl (6.1-8.1)
[2016-10-27 14:46] LABS: B-TYPE NATRIURETIC PEPTIDE 280 PG/ML (0-450)
[2016-10-27 14:47] LABS: INR 2.49; PROTIME 27.2 Sec (12.2-14.2); PT RATIO 2.1
--- NOTE | 2016-10-27 14:47 | RADRPT ---
PROCEDURE: XR Chest. CLINICAL INDICATION: Chest pain. TECHNIQUE: Single frontal view. COMPARISON: 10/18/2016. FINDINGS: The lungs are clear. The heart is enlarged. There are possible small bilateral pleural effusions. There is no pneumothorax. IMPRESSION: 1. Cardiomegaly. 2. Clear lungs. 3. Possible small bilateral pleural effusions. 4. No change from 10/18/2016. RPTAT: QQ .Jayro Rehman MD, MD Date Time Electronically viewed and signed by .Jayro Rehman MD, MD on 10/27/2016 14:47 .R/
[2016-10-27 14:48] LABS: PARTIAL THROMBOPLASTIN TIME 49.6 Sec (25.0-35.0)
[2016-10-27 14:51] LABS: TROPONIN-I < 0.012 ng/ml (0.00-0.12)
[2016-10-27 15:57] LABS: AADO2 Arterial 143.1 mmHg (7.0-24.0); Allen Test ACCEPTAB; Arterial Base Excess 1.7 mmol/L (-3.0-3); Arterial COHb 0.2 % (0.0-3.0); Arterial Fraction of Oxyhgb 96.2 % (93.0-99.0); Arterial HCO3 28.6 mmol/L (22.0-26.0); Arterial MetHb 0.1 % (0.0-1.5); MODE MASK - SIMPLE
[2016-10-27] MEDS ORDERED: TERBUTALINE 1 MG/ML INJ SC ONE (16:00)
--- NOTE | 2016-10-27 16:10 | ERA ---
ER Documentation Chief Complaint Date/Time DATE: 10/27/16 TIME: 16:06 Chief Complaint SOB STARTED THIS AM. HX OF ASTHMA HPI This is a 76-year-old male who presents to the emergency room for evaluation of shortness of breath. This patient does have a history of COPD, and is on home oxygen. According to family member who is giving the majority of the history this patient was admitted last week for COPD. When she was discharged the patient stated that he started to become short of breath and is progressively gotten worse over the past 5 days. Detailed history is unobtainable from the patient secondary to his clinical condition at this time. ROS All systems reviewed and are negative except as per history of present illness. Medications Home Meds Active Scripts Guaifenesin-Codeine Phosphate* (Robitussin* AC) 5 Ml Syrup, 10 ML PO Q6 Y for COUGH, #5 OZ Prov:MIRYAM SANTOYO 10/21/16 Prednisone* (Prednisone*) 10 Mg Tab, 10 MG PO DAILY, #30 TAB 1. take 40mg by mouth daily for 3 days 2. then 30mg by mouth daily for 3 days 3. then 20mg by mouth daily for 3 days 4. then 10mg by mouth daily for 3 days Prov:MIRYAM SANTOYO 10/21/16 Carvedilol* (Carvedilol*) 6.25 Mg Tablet, 3.125 MG PO BID for 30 Days, TAB Prov:MIRYAM SANTOYO 10/21/16 Tiotropium [place]* (Spiriva*) 18 Mcg Cap.w.dev, 1 CAP INHALATION DAILY, #30 CAP Prov:MIRYAM SANTOYO 10/21/16 Salmeterol Xinaf/Fluticasone* (Advair*) 250-50 Diskus Inhaler, 1 INH INH BID, # 1 VIAL Prov:MIRYAM SANTOYO 10/21/16 Albuterol Sulfate* (Ventolin HFA*) 18 Gm Hfa.aer.ad, 2 PUFF INHALATION Q4H, #1 INHALER Prov:MIRYAM SANTOYO 10/21/16 Loratadine* (Claritin*) 10 Mg Capsule, 10 MG PO DAILY for 30 Days, CAP Prov:ZENAIDA KRUGER 08/17/16 Reported Medications Albuterol/Ipratropium* (Combivent Respimat*) 20-100 Mcg/Inh - 4 Gm Aer.w.adap, 1 PUFF INHALATION QID, #1 INHALER 10/18/16 Simvastatin* (Zocor*) 20 Mg Tablet, 20 MG PO QHS, #30 TAB 10/18/16 Nebivolol* (Bystolic*) 5 Mg Tab, 5 MG PO DAILY, #30 TAB 10/18/16 Ergocalciferol (Vitamin D2) (VITAMIN D2) 50,000 Unit Capsule, 83567 UNIT PO Q7D , CAP 10/18/16 Tamsulosin Hcl* (Tamsulosin Hcl*) 0.4 Mg Cap.er.24h, 0.8 MG PO DAILY, CAP 08/11/16 Discontinued Reported Medications Carvedilol* (Carvedilol*) 6.25 Mg Tablet, 6.25 MG PO DAILY, #60 TAB 10/18/16 Allergies Allergies: Coded Allergies: No Known Allergy (Verified , 10/19/16) PMhx/Soc History of Surgery: Yes (hernia repair x3) Anesthesia Reaction: No Hx Neurological Disorder: No Hx Respiratory Disorders: Yes (COPD , ASTHMA ) Hx Cardiac Disorders: Yes (NC 3 years ago, HTN) Hx Psychiatric Problems: No Hx Miscellaneous Medical Probl: Yes (CVA, htn, obesity, hernia repair, paroxysmal afib) Hx Alcohol Use: No Hx Substance Use: No Hx Tobacco Use: No (QUIT 18 YRS AGO ) Smoking Status: Former smoker Physical Exam Vitals Vital Signs Date Time Temp Pulse Resp B/P Pulse Ox O2 Delivery O2 Flow Rate FiO2 10/27/16 14:32 80 20 129/86 98 Nasal Cannula 10/27/16 14:05 4.0 10/27/16 14:05 75 19 97 Nasal Cannula 4.0 10/27/16 14:00 Nasal Cannula 3 10/27/16 13:36 97.7 70 18 129/67 95 Physical Exam INITIAL VITAL SIGNS: Reviewed by me GENERAL: The patient is well developed however he appears to be in moderate respiratory distress HEENT: Pupils equal, round, and reactive to light. EOMI. There is no scleral icterus. NECK: C-spine is soft and supple, there is no meningismus. There is no cervical lymphadenopathy. LUNGS: Diffuse wheezing auscultated in the upper and lower lobes HEART: Regular rate and rhythm, no murmurs, clicks, rubs or gallops. ABDOMEN: Soft, non-tender, non-distended. There are bowel sounds in all four quadrants. No rebound or guarding. EXTREMITIES: There is no peripheral cyanosis or edema. No focal swelling or erythema. NEUROLOGICAL: The patient moves all four extremities with 5/5 strength. Cranial nerves II - XII are intact. Normal gait. Alert and oriented SKIN: There is no apparent rash or petechiae. HEME/LYMPHATIC: There is no evidence of excessive bruising or lymphedema. PSYCHIATRIC: The patient does not appear anxious or depressed. Result Diagram: 10/27/16 1355 10/27/16 1355 Results 24 hrs Laboratory Tests Test 10/27/16 13:55 10/27/16 15:41 White Blood Count 8.710^3/ul Red Blood Count 4.4510^6/ul Hemoglobin 13.4g/dl Hematocrit 40.7% Mean Corpuscular Volume 91.5fl Mean Corpuscular Hemoglobin 30.1pg Mean Corpuscular Hemoglobin Concent 32.9g/dl Red Cell Distribution Width 13.8% Platelet Count 56722^3/UL Mean Platelet Volume 11.4fl Neutrophils % 67.3% Lymphocytes % 14.4% Monocytes % 12.8% Eosinophils % 3.0% Basophils % 0.2% Nucleated Red Blood Cells % 0.0/100WBC Neutrophils # 5.810^3/ul Lymphocytes # 1.310^3/ul Monocytes # 1.110^3/ul Eosinophils # 0.310^3/ul Basophils # 0.010^3/ul Nucleated Red Blood Cells # 0.010^3/ul Prothrombin Time 27.2Sec Prothrombin Time Ratio 2.1 INR International Normalized Ratio 2.49 Activated Partial Thromboplast Time 49.6Sec Sodium Level 137mmol/L Potassium Level 4.4mmol/L Chloride Level 97mmol/L Carbon Dioxide Level 28mmol/L Anion Gap 16 Blood Urea Nitrogen 18mg/dl Creatinine 0.88mg/dl Glucose Level 128mg/dl Calcium Level 8.8mg/dl Total Bilirubin 0.2mg/dl Direct Bilirubin 0.00mg/dl Indirect Bilirubin 0.2mg/dl Aspartate Amino Transf (AST/SGOT) 26IU/L Alanine Aminotransferase (ALT/SGPT) 40IU/L Alkaline Phosphatase 67IU/L Troponin I < 0.012ng/ml B-Type Natriuretic Peptide 280PG/ML Total Protein 6.7g/dl Albumin 3.5g/dl Globulin 3.20g/dl Albumin/Globulin Ratio 1.09 Blood Gas Specimen Source Blood arterial Arterial Blood Date Drawn 10/27/2016 3:52:58 PM Arterial Blood pH (Temp corrected) 7.338 Arterial Blood pCO2 (Temp correct) 54.5mmhg Arterial Blood pO2 (Temp corrected) 94.0mmHG Arterial Blood HCO3 28.6mmol/L Arterial Blood Base Excess 1.7mmol/L Arterial Blood Oxygen Saturation 96.5mmHG Shaun Test ACCEPTAB Arterial Blood Gas Puncture Site Left Radial Arterial Blood Carboxyhemoglobin 0.2% Arterial Blood Methemoglobin 0.1% Blood Gas A-a O2 Differential 143.1mmHg Oxyhemoglobin Percent 96.2% Total Hemoglobin 14.0g/dl Blood Gas Temperature 37.0C Blood Gas Modality MASK - SIMPLE FiO2 42.0% Blood Gas Notified Whom MDA Blood Gas Notified Time 10/27/2016 3:57:25 PM Current Medications Medications (Trade) Dose Ordered Sig/Elisa Route PRN Reason Start Time Stop Time Status Last Admin Dose Admin Albuterol (Proventil 0.5% (Neb)) 15 mg ONCE STAT INH 10/27/16 13:53 10/27/16 13:55 DC 10/27/16 13:58 Ipratropium Alzada 1 mg 1 mg ONCE STAT INH 10/27/16 13:53 10/27/16 13:55 DC 10/27/16 13:58 Magnesium Sulfate/ Dextrose (Magnesium Sulfate 1 Gm/D5W) 100 ml @ 100 mls/hr ONCE ONCE IVPB 10/27/16 14:00 10/27/16 14:59 DC 10/27/16 14:03 Terbutaline Sulfate (Brethine) 0.25 mg ONCE ONCE SC 10/27/16 16:00 10/27/16 16:01 DC 10/27/16 15:46 Procedures/MDM EKG: Rate/Rhythm: [Normal Sinus Rhythm] QRS, ST, T-waves: [No changes consistent w/ acute ischemia] Impression: [No evidence of ischemia or arrhythmia] Chest X-ray 1V Interpreted by me: Soft Tissue: No acute abnormalities Bones: No acute abnormalities Mediastinum/Cardiac Silhouette/Lungs: Cardiomegaly with bilateral pleural effusions This 76-year-old male presents to the emergency room for evaluation of shortness of breath. When I evaluated this patient appear to be in moderate respiratory distress. He had diffuse wheezing. The patient was not oxygen via nasal cannula and pulse ox was 94%. He did have diffuse wheezing as well. This patient was given albuterol, Atrovent, Solu-Medrol, 1 g of magnesium. Upon reevaluation the patient states that his breathing is only improved slightly. He still continues to have diffuse wheezing. The patient was given 0.25 mg of subcutaneous terbutaline. The patient will be placed in at this time for acute COPD exacerbation and respiratory distress. The patient will be placed in for admission on the telemetry floor under the care of her panel physician Dr. Kruger. Critical Care: Excluding all billable procedures Time: 34 minutes Treatments/Evaluations: Close monitoring and treatment of unstable vital signs, cardiorespiratory, and neurologic status, while maintaining tight balance of fluid, respiratory, and cardiac interventions. Departure Diagnosis: Primary Impression: Acute respiratory failure Additional Impressions: COPD with acute exacerbation Normocytic anemia Condition: Stable KATE GANDARA DO October 27, 2016 16:10
[2016-10-27] MEDS ORDERED: ACETAMINOPHEN 325 MG TAB PO PRN ×2 (16:30→17:00)
[2016-10-27] MEDS ORDERED: ONDANSETRON 4 MG INJ IV PRN ×2 (16:30→17:00)
[2016-10-27] MEDS ORDERED: hydrALAzine 20 MG INJ IV PRN (17:00)
[2016-10-27] MEDS ORDERED: ALBUTEROL/IPRATROPIUM (NEB) 3 ML AMP HHN PRN (17:00)
[2016-10-27] MEDS ORDERED: LORAZEPAM 2 MG INJ IV PRN (17:00)
[2016-10-27] MEDS ORDERED: NACL 0.9% 3 ML SYG IV SCH (17:00)
--- NOTE | 2016-10-27 17:45 | HP ---
DATE OF ADMISSION: 10/27/2016 REASON FOR ADMISSION: Dyspnea. CONSULTANTS: Pulmonary. HISTORY OF PRESENT ILLNESS: This is a 76-year-old male with past medical history of COPD, essential hypertension, paroxysmal atrial fibrillation on Coumadin, CAD, benign prostatic hypertrophy, and obesity who came to the emergency room with chief complaint of dyspnea along with associated productive cough with yellow sputum production. The patient also verbalized subjective fevers. The patient was discharged from [facility] on 2016 after treatment for similar problems. The patient denied any chest pain. The patient was complaining of back pain. The patient denied any nausea, vomiting, abdominal pain, diarrhea, hematochezia, or dysuria. In the emergency room, the patient was noticed to be tripoding. The patient did not have any leukocytosis. The patient was afebrile. The patient underwent an ABG that showed CO2 retention. The patient's chest x-ray showed cardiomegaly with clear lungs and possible small bilateral pleural effusions. The patient was treated with inhaled bronchodilators, IV magnesium, and subcutaneous terbutaline in the emergency room. PAST MEDICAL HISTORY: Essential hypertension, COPD, CAD, BPH, obesity, paroxysmal atrial fibrillation. PAST SURGICAL HISTORY: Cholecystectomy, hernia repair. HOME MEDICATIONS: 1. Loratadine 10 mg p.o. daily. 2. ProAir HFA 2 puffs q. 4 hours inhaled. 3. Tamsulosin 0.8 mg p.o. daily. 4. Spiriva 18 mcg 1 capsule inhalation daily. 5. Coreg 3.125 mg p.o. b.i.d. 6. Simvastatin 20 mg p.o. at bedtime. 7. Advair Diskus 250/50, one inhalation b.i.d. ALLERGIES: NO KNOWN DRUG ALLERGIES. SOCIAL HISTORY: The patient lives at home with his family. Current every day tobacco use. Uses alcohol occasionally. Denies any drug use. REVIEW OF SYSTEMS: A 12-point review of systems was made, and the review of systems is negative other than what is mentioned in the history of present illness. PHYSICAL EXAMINATION: VITAL SIGNS: Temperature 98.6, pulse rate 82, respiratory rate 20, blood pressure 135/105, oxygen saturation 99% on oxygen via simple mask. GENERAL: This is a 76-year-old male patient sitting in bed in orthopneic position because of underlying respiratory distress. HEENT: Head normocephalic and atraumatic. Eyes: Anicteric sclerae. Conjunctivae clear. ENT: Nasal septum is midline. Oral mucosa is dry. NECK: Supple. No JVD noticed. RESPIRATORY: Bilateral diminished breath sounds. Use of accessory muscles of respiration. Bilateral expiratory wheezing. CARDIAC: Irregularly irregular rhythm. GASTROINTESTINAL: S1, S2 heard. ABDOMEN: Soft, nontender, and nondistended. Bowel sounds positive in all 4 quadrants. GENITOURINARY: Deferred. EXTREMITIES: No cyanosis, no clubbing, no edema. Peripheral pulses palpable. NEUROLOGIC: The patient is awake, alert, and oriented. Cranial nerves are grossly intact. LABORATORY AND DIAGNOSTIC DATA: WBC 8.7, hemoglobin 13.4, hematocrit 40.7, platelet count 266. Sodium 137, potassium 4.4, chloride 97, carbon dioxide is 28, anion gap 16, BUN 18, creatinine 0.88, glucose 120, calcium 8.8, AST 26, ALT 40, alkaline phosphatase 67. Troponin less than 0.012. PT 27.2, INR 2.4. PTT 49.6. Blood gas that was done on a simple mask, pH 7.33, pCO2 54.5, pO2 94.0, bicarbonate 28.6, oxygen saturation 96.5, base excess 1.7. Chest x-ray shows cardiomegaly. Clear lungs. Possible small bilateral pleural effusions. IMPRESSION: This is a 76-year-old male with a known history of COPD who came to the emergency room with chief complaint of dyspnea, productive cough, as well as subjective fever. He will be admitted here for further treatment and evaluation. ASSESSMENT AND PLAN: 1. Acute chronic obstructive pulmonary disease exacerbation. The patient will be started on inhaled bronchodilators around the clock and on a p.r.n. basis. The patient will also be started on tapering dose of steroids. The patient will be provided with supplemental oxygen. Pulmonology consult will be obtained. The patient will also be started on empiric antibiotics for any underlying tracheobronchitis. 2. Acute on chronic respiratory failure, hypoxic and hypercapnic. The patient will be continued on inhaled bronchodilators. The patient will be provided with supplemental oxygen. Leather Colorer will follow the patient. 3. Essential hypertension. The patient will be maintained on antihypertensives including p.r.n. antihypertensives for any systolic blood pressure readings greater than 160 mmHg. 4. Paroxysmal atrial fibrillation. The patient will be continued on beta blockers. The patient is already anticoagulated with Coumadin with a therapeutic INR. 5. Benign prostatic hypertrophy. The patient will be continued on tamsulosin. 6. Reported history of coronary artery disease with details unclear. The patient will be maintained on anticoagulation with Warfarin. Plan. The patient will be admitted to inpatient telemetry floor. The patient will be started on DVT prophylaxis and gastrointestinal prophylaxis. The patient will remain a FULL CODE. Activities will be as tolerated. The rest of the patient's activities will be based on the clinical course, the results of diagnostic tests, and inputs from consultants. Based on this patient's clinical presentation, he most probably requires at least 2 midnights' stay for further management and evaluation of his clinical presentation. The case and management of this patient was fully discussed with Dr. Kruger. TONY KRUGER MD, AM/ANASTACIA Conf#: [id number] DID#: [id number] SHANEL
[2016-10-27] MEDS: ALBUTEROL/IPRATROPIUM (NEB) 3 ML AMP HHN SCH ×2 (17:58→20:37)
[2016-10-27] MEDS: METHYLPREDNISOLONE 125 MG INJ IV SCH (18:19)
[2016-10-27] MEDS: ERGOCALCIFEROL 50,000 UNIT CAP PO SCH (18:19)
[2016-10-27] MEDS: LEVOFLOXACIN 750MG/D5W (PMX) 150 ML IVPB SCH (18:19)
[2016-10-27 20:25] LABS: CREATINE KINASE 47 IU/L (23-200)
[2016-10-27 20:40] LABS: CK-MB 1.28 ng/ml (0.0-2.4); TROPONIN-I < 0.012 ng/ml (0.00-0.12)
[2016-10-27] MEDS: ATORVASTATIN 10 MG TAB PO SCH (22:11)
[2016-10-27] MEDS: FAMOTIDINE 20 MG TAB PO SCH (22:12)
[2016-10-27] MEDS: SALMETEROL/FLUTICASONE 250/50 INHA INH SCH (22:12)
[2016-10-28] VITALS (13 sets, daily range): BP systolic 92–131; BP diastolic 50–63; PULSE 60–82; RESP 17–20
[2016-10-28] MEDS: METHYLPREDNISOLONE 125 MG INJ IV SCH ×2 (00:42→07:15)
[2016-10-28 02:26] LABS: CREATINE KINASE 64 IU/L (23-200)
[2016-10-28 02:42] LABS: CK-MB 1.73 ng/ml (0.0-2.4); TROPONIN-I < 0.012 ng/ml (0.00-0.12)
[2016-10-28 08:19] LABS: ADD SCAN DIFF NO
[2016-10-28] MEDS: TAMSULOSIN (SR) 0.4 MG CAP PO SCH (08:28)
[2016-10-28] MEDS: FAMOTIDINE 20 MG TAB PO SCH ×2 (08:28→21:03)
[2016-10-28] MEDS: LORATADINE 10 MG TAB PO SCH (08:28)
[2016-10-28] MEDS: SALMETEROL/FLUTICASONE 250/50 INHA INH SCH ×2 (08:29→21:04)
[2016-10-28 08:37] LABS: BASOPHILS % 0.1 % (0.0-2.0); EOSINOPHILS # 0.2 10^3/ul (0.0-0.5); EOSINOPHILS % 1.9 % (0.0-7.0); HEMATOCRIT 38.8 % (42.0-52.0); HEMOGLOBIN 12.5 g/dl (14.0-18.0); LYMPHOCYTES # 0.8 10^3/ul (0.8-2.9); LYMPHOCYTES % 8.4 % (15.0-51.0); MEAN CORPUSCULAR HEMOGLOBIN 29.4 pg (29.0-33.0); MEAN CORPUSCULAR HGB CONC 32.2 g/dl (32.0-37.0); MEAN CORPUSCULAR VOLUME 91.3 fl (82.0-101.0); MEAN PLATELET VOLUME 11.3 fl (7.4-10.4); MONOCYTE # 0.2 10^3/ul (0.3-0.9); MONOCYTES % 2.2 % (0.0-11.0); NEUTROPHIL # 8.1 10^3/ul (1.6-7.5); NEUTROPHILS % 84.5 % (39.0-77.0); PLATELET COUNT 239 10^3/UL (140-415); RED BLOOD COUNT 4.25 10^6/ul (4.70-6.10); RED CELL DISTRIBUTION WIDTH 13.9 % (11.5-14.5); WHITE BLOOD COUNT 9.6 10^3/ul (4.8-10.8)
[2016-10-28 08:47] LABS: INR 1.41; PROTIME 17.3 Sec (12.2-14.2); PT RATIO 1.4
[2016-10-28 08:55] LABS: CHOL/HDL RATIO 2.3 RATIO; MAGNESIUM 2.1 mg/dl (1.7-2.5)
[2016-10-28] MEDS ORDERED: ASPIRIN (EC) 81 MG TAB PO SCH (09:00)
[2016-10-28] MEDS: ALBUTEROL/IPRATROPIUM (NEB) 3 ML AMP HHN SCH ×4 (09:03→21:05)
[2016-10-28 09:11] LABS: POTASSIUM 4.4 mmol/L (3.5-5.1)
[2016-10-28 09:14] LABS: CREATININE 0.71 mg/dl (0.61-1.24)
[2016-10-28 09:15] LABS: CALCIUM 8.8 mg/dl (8.4-10.2)
[2016-10-28 09:33] LABS: THYROID STIMULATING HORMONE 0.36 MIU/L (0.465-4.680)
--- NOTE | 2016-10-28 12:32 | CONS ---
Date/Time of Note Date/Time of Note DATE: 10/28/16 TIME: 12:26 Assessment/Plan Assessment/Plan Additional Assessment/Plan Chest x-ray was reviewed from yesterday which is essentially clear. ABG also was reviewed which is showing mild hypercapnia. Next Assessment recommendations; 1. Patient admitted for acute exacerbation and acute bronchitis, clinically improved. 2. Likely some element of chronic type II respiratory failure on account of underlying COPD. 3. Multiple other comorbidities including BPH, atrial fibrillation, hypertension and hyperlipidemia. Decrease Solu-Medrol to 40 mg every 6 hours. Continue current other medications. Consultation Date/Type/Reason Admit Date/Time October 27, 2016 at 16:17 Date of Consultation: October 28, 2016 Type of Consultation: Pulmonary Reason for Consultation Pulmonary consultations obtained for evaluation of hypercapnic respiratory failure. Next History presenting any; patient is a pleasant 76-year-old gentleman who came into the emergency room yesterday with a few days history of shortness of breath associated with chest congestion and sputum production and wheezing. Upon evaluation patient was diagnosed with COPD exacerbation and admitted to medical floor. An ABG was done which is showing mild hypercapnia. The patient has been maintained on supplemental oxygen and according to him is feeling much better now. Patient does complain of chronic shortness of breath upon exertion. Denies any chest pain, abdominal pain, nausea vomiting. Denies any high fever or chills. Past medical history; 1. Patient with a history of COPD 2. Hypertension. 3. BPH. 4. Chronic atrial fibrillation 5. Coronary artery disease. Medications; reviewed. Allergies; none. Social history; patient smokes about half a pack a day. No history of alcohol or drug abuse. Family history; patient is with family at home. Occupational history; patient is retired. Review of systems; denies any headache, sinus symptoms. Any seizures. Hearing loss. Difficulty swallowing. Chest pain. Denies any angina. Complains of cough, chest congestion and wheezing. Denies any abdominal pain, nausea vomiting. Does complain of difficulty with urination for a long time. Denies any edema. Does complain of mild chronic orthopnea. Does complain of chronic mild dyspnea on exertion. Has stable weight. General exam; elderly male, awake alert currently in no distress. Past Surgical History Past Surgical Hx: cholecystectomy, other Social History Smoking Status: Current some day smoker Exam/Review of Systems Vital Signs Vitals Vital Signs Date Time Temp Pulse Resp B/P Pulse Ox O2 Delivery O2 Flow Rate FiO2 10/28/16 12:15 67 10/28/16 11:09 98.0 19 103/51 99 10/28/16 09:05 2.0 10/28/16 09:05 Nasal Cannula 10/28/16 01:24 35 Intake and Output 10/27/16 10/27/16 10/28/16 15:00 23:00 07:00 Intake Total 150 ml Balance 150 ml Exam HEENT examination; supple neck, no JVD. No lymphadenopathy. Midline trachea. No thyromegaly. Pharynx is clear. Patient is edentulous and wears dentures. Pupils are small bilaterally. Chest examination; diminished breath sounds bilaterally with scattered crackles.. No additional. S1-S2 audible, no murmurs. Irregular rhythm. Abdomen examination; soft, protuberant. No organomegaly. Bowel sounds audible. Extremity examination; no peripheral edema. Pulses 1+ bilaterally. No clubbing. PATIENT DAY COORDINATOR examination; cranial nerves are grossly intact. No focal deficit. Results Result Diagram: 10/28/16 0715 10/28/16 0715 Results 24 hrs Laboratory Tests Test 10/27/16 13:55 10/27/16 15:41 10/27/16 19:40 10/28/16 01:53 White Blood Count 8.7 Red Blood Count 4.45 L Hemoglobin 13.4 L Hematocrit 40.7 L Mean Corpuscular Volume 91.5 Mean Corpuscular Hemoglobin 30.1 Mean Corpuscular Hemoglobin Concent 32.9 Red Cell Distribution Width 13.8 Platelet Count 266 Mean Platelet Volume 11.4 H Neutrophils % 67.3 Lymphocytes % 14.4 L Monocytes % 12.8 H Eosinophils % 3.0 Basophils % 0.2 Nucleated Red Blood Cells % 0.0 Neutrophils # 5.8 Lymphocytes # 1.3 Monocytes # 1.1 H Eosinophils # 0.3 Basophils # 0.0 Nucleated Red Blood Cells # 0.0 Prothrombin Time 27.2 H Prothrombin Time Ratio 2.1 INR International Normalized Ratio 2.49 Activated Partial Thromboplast Time 49.6 H Sodium Level 137 Potassium Level 4.4 Chloride Level 97 Carbon Dioxide Level 28 Anion Gap 16 Blood Urea Nitrogen 18 Creatinine 0.88 Glucose Level 128 Calcium Level 8.8 Total Bilirubin 0.2 Direct Bilirubin 0.00 Indirect Bilirubin 0.2 Aspartate Amino Transf (AST/SGOT) 26 Alanine Aminotransferase (ALT/SGPT) 40 Alkaline Phosphatase 67 Troponin I < 0.012 < 0.012 < 0.012 B-Type Natriuretic Peptide 280 Total Protein 6.7 Albumin 3.5 Globulin 3.20 Albumin/Globulin Ratio 1.09 Blood Gas Specimen Source Blood arterial Arterial Blood Date Drawn 10/27/2016 3:52:58 PM Arterial Blood pH (Temp corrected) 7.338 L Arterial Blood pCO2 (Temp correct) 54.5 H Arterial Blood pO2 (Temp corrected) 94.0 H Arterial Blood HCO3 28.6 H Arterial Blood Base Excess 1.7 Arterial Blood Oxygen Saturation 96.5 Shaun Test ACCEPTAB Arterial Blood Gas Puncture Site Left Radial Arterial Blood Carboxyhemoglobin 0.2 Arterial Blood Methemoglobin 0.1 Blood Gas A-a O2 Differential 143.1 H Oxyhemoglobin Percent 96.2 Total Hemoglobin 14.0 Blood Gas Temperature 37.0 Blood Gas Modality MASK - SIMPLE FiO2 42.0 Blood Gas Notified Whom MDA Blood Gas Notified Time 10/27/2016 3:57:25 PM Creatine Kinase 47 64 Creatine Kinase Index 2.7 2.7 Creatinine Kinase MB (Mass) 1.28 1.73 Test 10/28/16 07:15 White Blood Count 9.6 Red Blood Count 4.25 L Hemoglobin 12.5 L Hematocrit 38.8 L Mean Corpuscular Volume 91.3 Mean Corpuscular Hemoglobin 29.4 Mean Corpuscular Hemoglobin Concent 32.2 Red Cell Distribution Width 13.9 Platelet Count 239 Mean Platelet Volume 11.3 H Neutrophils % 84.5 H Lymphocytes % 8.4 L Monocytes % 2.2 Eosinophils % 1.9 Basophils % 0.1 Nucleated Red Blood Cells % 0.0 Neutrophils # 8.1 H Lymphocytes # 0.8 Monocytes # 0.2 L Eosinophils # 0.2 Basophils # 0.0 Nucleated Red Blood Cells # 0.0 Prothrombin Time 17.3 #H Prothrombin Time Ratio 1.4 INR International Normalized Ratio 1.41 Sodium Level 133 L Potassium Level 4.4 Chloride Level 94 L Carbon Dioxide Level 28 Anion Gap 15 Blood Urea Nitrogen 17 Creatinine 0.71 Glucose Level 132 Hemoglobin A1c 6.2 H Calcium Level 8.8 Phosphorus Level 4.0 Magnesium Level 2.1 Triglycerides Level 61 Cholesterol Level 125 LDL Cholesterol, Calculated 60 HDL Cholesterol 53 Cholesterol/HDL Ratio 2.3 Thyroid Stimulating Hormone (TSH) 0.360 L Medications Medications Current Medications Lorazepam (Ativan) 0.5 mg Q6H PRN IV ANXIETY; Start 10/27/16 at 17:00 Ondansetron HCl (Zofran Inj) 4 mg Q6H PRN IV NAUSEA AND/OR VOMITING; Start at 17:00 Acetaminophen (Tylenol Tab) 650 mg Q6H PRN PO PAIN LEVEL 1-3 OR FEVER; Start at 17:00 Magnesium Hydroxide (Milk Of Mag) 30 ml DAILY PRN PO CONSTIPATION; Start at 17:00 Bisacodyl (Dulcolax) 5 mg DAILY PRN PO CONSTIPATION; Start 10/27/16 at 17:00 Famotidine (Pepcid) 20 mg Q12 PO Last administered on 10/28/16 08:28; Admin Dose 20 MG; Start 10/27/16 at 21:00 Methylprednisolone Sodium Succinate (Solu-Medrol) 60 mg Q6 IV Last administered on 10/28/16 07:15; Admin Dose 60 MG; Start 10/27/16 at 18:00 Carvedilol (Coreg) 3.125 mg BID PO Last administered on 10/28/16 08:29; Admin Dose 3.125 MG; Start 10/27/16 at 21:00 Ergocalciferol (Drisdol) 50,000 unit Q7D PO Last administered on 10/27/16 18: 19; Admin Dose 50,000 UNIT; Start 10/27/16 at 17:00 Loratadine (Claritin) 10 mg DAILY PO Last administered on 10/28/16 08:28; Admin Dose 10 MG; Start 10/28/16 at 09:00 Salmeterol Xinafoate/ Fluticasone (Advair 250/50 Diskus) 1 inh BID INH Last administered on 10/28/16 08:29; Admin Dose 1 INH; Start 10/27/16 at 21:00 Tamsulosin HCl (Flomax) 0.8 mg DAILY PO Last administered on 10/28/16 08:28; Admin Dose 0.8 MG; Start 10/28/16 at 09:00 Atorvastatin Calcium 10 mg 10 mg DAILY@21 PO Last administered on 10/27/16 22: 11; Admin Dose 10 MG; Start 10/27/16 at 21:00 Levofloxacin/ Dextrose (Levaquin 750 Mg/ D5W 150 ml (Pmx)) 150 ml @ 100 mls/hr Q24H IVPB Last administered on 10/27/16 18:19; Admin Dose 100 MLS/HR; Start at 17:00 Hydralazine HCl (Apresoline) 10 mg Q6H PRN IV SBP>160; Start 10/27/16 at 17:00 Aspirin (Halfprin) 81 mg DAILY PO Last administered on 10/28/16 08:28; Admin Dose 81 MG; Start 10/28/16 at 09:00 BETTY FAIRBANKS October 28, 2016 12:32
--- NOTE | 2016-10-28 13:09 | PN ---
Date/Time of Note Date/Time of Note DATE: 10/28/16 TIME: 13:07 Assessment/Plan VTE Prophylaxis VTE Prophylaxis Intervention: other (Warfarin) Lines/Catheters IV [facility]ter Type (from [facility]): Peripheral IV Urinary Cath still in place: No Assessment/Plan Chief Complaint/Hosp Course 1. Acute chronic obstructive pulmonary disease exacerbation. The patient will be continued on inhaled bronchodilators around the clock and on a p.r.n. basis. The patient will also be maintained on tapering dose of steroids. The patient being followed by pulmonary. 2. Acute on chronic respiratory failure, hypoxic and hypercapnic. The patient will be continued on inhaled bronchodilators. The patient will be provided with supplemental oxygen. Perlite Grinder is following the patient. 3. Essential hypertension. The patient will be continued on antihypertensives including p.r.n. antihypertensives for any systolic blood pressure readings greater than 160 mmHg. 4. Paroxysmal atrial fibrillation. The patient will be continued on beta blockers. The patient is already anticoagulated with Coumadin. 5. Benign prostatic hypertrophy. The patient will be continued on tamsulosin. 6. Reported history of coronary artery disease with details unclear. The patient will be continued on anticoagulation. 7. Fluids, electrolytes, and nutrition. Low-cholesterol diet. 8. DVT prophylaxis. On anticoagulation for her underlying atrial fibrillation. 9. Gastrointestinal prophylaxis. Histamine 2 receptor blockers. 10. Plan. Continue inhaled bronchodilators. Continue tapering dose of steroids. Follow pulmonology recommendations. Case discussed with Dr. Mendenhall. Problems: Subjective 24 Hr Interval Summary Free Text/Dictation Denies any chest pain. Complains of upper back pain. Remains on supplemental oxygen. Exam/Review of Systems Vital Signs Vitals Vital Signs Date Time Temp Pulse Resp B/P Pulse Ox O2 Delivery O2 Flow Rate FiO2 10/28/16 12:15 67 10/28/16 11:09 98.0 19 103/51 99 10/28/16 09:05 2.0 10/28/16 09:05 Nasal Cannula 10/28/16 01:24 35 Intake and Output 10/27/16 10/27/16 10/28/16 15:00 23:00 07:00 Intake Total 150 ml Balance 150 ml Exam GENERAL: This is a 76-year-old male patient sitting in bed in orthopneic position because of underlying respiratory distress. HEENT: Head normocephalic and atraumatic. Eyes: Anicteric sclerae. Conjunctivae clear. ENT: Nasal septum is midline. Oral mucosa is dry. NECK: Supple. No JVD noticed. RESPIRATORY: Bilateral diminished breath sounds. Use of accessory muscles of respiration. Bilateral crackles. CARDIAC: Irregularly irregular rhythm. GASTROINTESTINAL: S1, S2 heard. ABDOMEN: Soft, nontender, and nondistended. Bowel sounds positive in all 4 quadrants. GENITOURINARY: Deferred. EXTREMITIES: No cyanosis, no clubbing, no edema. Peripheral pulses palpable. NEUROLOGIC: The patient is awake, alert, and oriented. Cranial nerves are grossly intact. Results Result Diagram: 10/28/16 0715 10/28/16 0715 Results 24 hrs Laboratory Tests Test 10/27/16 13:55 10/27/16 15:41 10/27/16 19:40 10/28/16 01:53 White Blood Count 8.7 Red Blood Count 4.45 L Hemoglobin 13.4 L Hematocrit 40.7 L Mean Corpuscular Volume 91.5 Mean Corpuscular Hemoglobin 30.1 Mean Corpuscular Hemoglobin Concent 32.9 Red Cell Distribution Width 13.8 Platelet Count 266 Mean Platelet Volume 11.4 H Neutrophils % 67.3 Lymphocytes % 14.4 L Monocytes % 12.8 H Eosinophils % 3.0 Basophils % 0.2 Nucleated Red Blood Cells % 0.0 Neutrophils # 5.8 Lymphocytes # 1.3 Monocytes # 1.1 H Eosinophils # 0.3 Basophils # 0.0 Nucleated Red Blood Cells # 0.0 Prothrombin Time 27.2 H Prothrombin Time Ratio 2.1 INR International Normalized Ratio 2.49 Activated Partial Thromboplast Time 49.6 H Sodium Level 137 Potassium Level 4.4 Chloride Level 97 Carbon Dioxide Level 28 Anion Gap 16 Blood Urea Nitrogen 18 Creatinine 0.88 Glucose Level 128 Calcium Level 8.8 Total Bilirubin 0.2 Direct Bilirubin 0.00 Indirect Bilirubin 0.2 Aspartate Amino Transf (AST/SGOT) 26 Alanine Aminotransferase (ALT/SGPT) 40 Alkaline Phosphatase 67 Troponin I < 0.012 < 0.012 < 0.012 B-Type Natriuretic Peptide 280 Total Protein 6.7 Albumin 3.5 Globulin 3.20 Albumin/Globulin Ratio 1.09 Blood Gas Specimen Source Blood arterial Arterial Blood Date Drawn 10/27/2016 3:52:58 PM Arterial Blood pH (Temp corrected) 7.338 L Arterial Blood pCO2 (Temp correct) 54.5 H Arterial Blood pO2 (Temp corrected) 94.0 H Arterial Blood HCO3 28.6 H Arterial Blood Base Excess 1.7 Arterial Blood Oxygen Saturation 96.5 Shaun Test ACCEPTAB Arterial Blood Gas Puncture Site Left Radial Arterial Blood Carboxyhemoglobin 0.2 Arterial Blood Methemoglobin 0.1 Blood Gas A-a O2 Differential 143.1 H Oxyhemoglobin Percent 96.2 Total Hemoglobin 14.0 Blood Gas Temperature 37.0 Blood Gas Modality MASK - SIMPLE FiO2 42.0 Blood Gas Notified Whom [facility] Blood Gas Notified Time 10/27/2016 3:57:25 PM Creatine Kinase 47 64 Creatine Kinase Index 2.7 2.7 Creatinine Kinase MB (Mass) 1.28 1.73 Test 10/28/16 07:15 White Blood Count 9.6 Red Blood Count 4.25 L Hemoglobin 12.5 L Hematocrit 38.8 L Mean Corpuscular Volume 91.3 Mean Corpuscular Hemoglobin 29.4 Mean Corpuscular Hemoglobin Concent 32.2 Red Cell Distribution Width 13.9 Platelet Count 239 Mean Platelet Volume 11.3 H Neutrophils % 84.5 H Lymphocytes % 8.4 L Monocytes % 2.2 Eosinophils % 1.9 Basophils % 0.1 Nucleated Red Blood Cells % 0.0 Neutrophils # 8.1 H Lymphocytes # 0.8 Monocytes # 0.2 L Eosinophils # 0.2 Basophils # 0.0 Nucleated Red Blood Cells # 0.0 Prothrombin Time 17.3 #H Prothrombin Time Ratio 1.4 INR International Normalized Ratio 1.41 Sodium Level 133 L Potassium Level 4.4 Chloride Level 94 L Carbon Dioxide Level 28 Anion Gap 15 Blood Urea Nitrogen 17 Creatinine 0.71 Glucose Level 132 Hemoglobin A1c 6.2 H Calcium Level 8.8 Phosphorus Level 4.0 Magnesium Level 2.1 Triglycerides Level 61 Cholesterol Level 125 LDL Cholesterol, Calculated 60 HDL Cholesterol 53 Cholesterol/HDL Ratio 2.3 Thyroid Stimulating Hormone (TSH) 0.360 L Free Thyroxine 1.34 Medications Medications Current Medications Lorazepam (Ativan) 0.5 mg Q6H PRN IV ANXIETY; Start 10/27/16 at 17:00 Ondansetron HCl (Zofran Inj) 4 mg Q6H PRN IV NAUSEA AND/OR VOMITING; Start at 17:00 Acetaminophen (Tylenol Tab) 650 mg Q6H PRN PO PAIN LEVEL 1-3 OR FEVER; Start at 17:00 Magnesium Hydroxide (Milk Of Mag) 30 ml DAILY PRN PO CONSTIPATION; Start at 17:00 Bisacodyl (Dulcolax) 5 mg DAILY PRN PO CONSTIPATION; Start 10/27/16 at 17:00 Famotidine (Pepcid) 20 mg Q12 PO Last administered on 10/28/16 08:28; Admin Dose 20 MG; Start 10/27/16 at 21:00 Carvedilol (Coreg) 3.125 mg BID PO Last administered on 10/28/16 08:29; Admin Dose 3.125 MG; Start 10/27/16 at 21:00 Ergocalciferol (Drisdol) 50,000 unit Q7D PO Last administered on 10/27/16 18: 19; Admin Dose 50,000 UNIT; Start 10/27/16 at 17:00 Loratadine (Claritin) 10 mg DAILY PO Last administered on 10/28/16 08:28; Admin Dose 10 MG; Start 10/28/16 at 09:00 Salmeterol Xinafoate/ Fluticasone (Advair 250/50 Diskus) 1 inh BID INH Last administered on 10/28/16 08:29; Admin Dose 1 INH; Start 10/27/16 at 21:00 Tamsulosin HCl (Flomax) 0.8 mg DAILY PO Last administered on 10/28/16 08:28; Admin Dose 0.8 MG; Start 10/28/16 at 09:00 Atorvastatin Calcium 10 mg 10 mg DAILY@21 PO Last administered on 10/27/16 22: 11; Admin Dose 10 MG; Start 10/27/16 at 21:00 Levofloxacin/ Dextrose (Levaquin 750 Mg/ D5W 150 ml (Pmx)) 150 ml @ 100 mls/hr Q24H IVPB Last administered on 10/27/16 18:19; Admin Dose 100 MLS/HR; Start at 17:00 Hydralazine HCl (Apresoline) 10 mg Q6H PRN IV SBP>160; Start 10/27/16 at 17:00 Aspirin (Halfprin) 81 mg DAILY PO Last administered on 10/28/16 08:28; Admin Dose 81 MG; Start 5/18/17 at 09:00 Methylprednisolone Sodium Succinate (Solu-Medrol) 40 mg Q8 IV ; Start 10/28/16 at 14:00 TONY IVY NP October 28, 2016 13:09
[2016-10-28] MEDS: METHYLPREDNISOLONE 40 MG INJ IV SCH ×2 (14:01→23:11)
[2016-10-28] MEDS: LEVOFLOXACIN 750MG/D5W (PMX) 150 ML IVPB SCH (17:31)
[2016-10-28] MEDS: WARFARIN 5 MG TAB PO SCH (17:32)
[2016-10-28] MEDS: ATORVASTATIN 10 MG TAB PO SCH (21:03)
[2016-10-29] VITALS (10 sets, daily range): BP systolic 109–133; BP diastolic 53–63; PULSE 59–75; RESP 17–20
[2016-10-29 06:16] LABS: ADD SCAN DIFF NO
[2016-10-29 06:30] LABS: BASOPHILS % 0.1 % (0.0-2.0); EOSINOPHILS # 0.1 10^3/ul (0.0-0.5); EOSINOPHILS % 0.8 % (0.0-7.0); HEMATOCRIT 35.6 % (42.0-52.0); HEMOGLOBIN 11.7 g/dl (14.0-18.0); LYMPHOCYTES % 5.9 % (15.0-51.0); MEAN CORPUSCULAR HEMOGLOBIN 29.5 pg (29.0-33.0); MEAN CORPUSCULAR HGB CONC 32.9 g/dl (32.0-37.0); MEAN CORPUSCULAR VOLUME 89.9 fl (82.0-101.0); MEAN PLATELET VOLUME 11.1 fl (7.4-10.4); MONOCYTE # 1.4 10^3/ul (0.3-0.9); MONOCYTES % 8.3 % (0.0-11.0); NEUTROPHIL # 13.5 10^3/ul (1.6-7.5); NEUTROPHILS % 82.4 % (39.0-77.0); PLATELET COUNT 233 10^3/UL (140-415); RED BLOOD COUNT 3.96 10^6/ul (4.70-6.10); RED CELL DISTRIBUTION WIDTH 13.7 % (11.5-14.5); WHITE BLOOD COUNT 16.3 10^3/ul (4.8-10.8)
[2016-10-29 06:41] LABS: INR 1.13; PROTIME 14.5 Sec (12.2-14.2); PT RATIO 1.1
[2016-10-29] MEDS: METHYLPREDNISOLONE 40 MG INJ IV SCH ×3 (06:43→22:18)
[2016-10-29 06:49] LABS: PHOSPHORUS 4.1 mg/dl (2.5-4.9)
[2016-10-29 07:02] LABS: CALCIUM 9.1 mg/dl (8.4-10.2); CREATININE 0.82 mg/dl (0.61-1.24); POTASSIUM 4.4 mmol/L (3.5-5.1)
[2016-10-29] MEDS: FAMOTIDINE 20 MG TAB PO SCH ×2 (08:04→20:58)
[2016-10-29] MEDS: LORATADINE 10 MG TAB PO SCH (08:04)
[2016-10-29] MEDS: TAMSULOSIN (SR) 0.4 MG CAP PO SCH (08:05)
[2016-10-29] MEDS: BISACODYL (EC) 5 MG TAB PO PRN (08:08)
[2016-10-29] MEDS: SALMETEROL/FLUTICASONE 250/50 INHA INH SCH ×3 (08:08→22:18)
[2016-10-29] MEDS: ALBUTEROL/IPRATROPIUM (NEB) 3 ML AMP HHN SCH ×4 (09:25→21:00)
--- NOTE | 2016-10-29 11:34 | CONS ---
Date/Time of Note Date/Time of Note DATE: 10/29/16 TIME: 11:31 Assessment/Plan Assessment/Plan Additional Assessment/Plan Assessment recommendations; 1. Patient admitted for COPD exacerbation and acute bronchitis with slow clinical improvement. 2. Multiple other comorbidities including atrial fibrillation, hypertension, BPH and hyperlipidemia. Continue current treatment. Steroid tapering to start in 24 hours. Patient does have mild leukocytosis likely due to steroid response. Consultation Date/Type/Reason Admit Date/Time October 27, 2016 at 16:17 Initial Consult Date 10/28/16 Type of Consultation: Pulmonary 24 HR Interval Summary Free Text/Dictation Patient condition is stable. Still complains of shortness of breath and chest congestion. But denies any chest pain, any fever or chills. Denies any abdominal pain, nausea vomiting. General exam; elderly male, awake alert currently in no distress. Exam/Review of Systems Vital Signs Vitals Vital Signs Date Time Temp Pulse Resp B/P Pulse Ox O2 Delivery O2 Flow Rate FiO2 10/29/16 11:14 98.6 68 18 116/58 97 10/29/16 09:25 2.0 10/29/16 09:25 Nasal Cannula 10/28/16 01:24 35 Intake and Output 10/28/16 10/28/16 10/29/16 15:00 23:00 07:00 Intake Total 200 ml 1200 ml 150 ml Output Total 300 ml 1500 ml Balance -100 ml -300 ml 150 ml Exam H EENT exam; supple neck, no JVD. No lymphadenopathy. Midline trachea. No thyromegaly. Pharynx is clear. Chest examined; diminished breath sound bilaterally. S1-S2 audible, irregular rhythm. No murmurs. Abdomen examination; protuberant. No organomegaly. Bowel sounds audible. Nontender. Extremity examination; no peripheral edema. 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 Results Result Diagram: 10/29/16 0549 10/29/16 0519 Results 24 hrs Laboratory Tests Test 10/29/16 05:19 10/29/16 05:44 10/29/16 05:49 Sodium Level 133 L Potassium Level 4.4 Chloride Level 96 L Carbon Dioxide Level 31 Anion Gap 10 # Blood Urea Nitrogen 19 Creatinine 0.82 Glucose Level 161 Calcium Level 9.1 Phosphorus Level 4.1 Magnesium Level 2.0 White Blood Count 16.3 #H Red Blood Count 3.96 L Hemoglobin 11.7 L Hematocrit 35.6 L Mean Corpuscular Volume 89.9 Mean Corpuscular Hemoglobin 29.5 Mean Corpuscular Hemoglobin Concent 32.9 Red Cell Distribution Width 13.7 Platelet Count 233 Mean Platelet Volume 11.1 H Neutrophils % 82.4 H Lymphocytes % 5.9 L Monocytes % 8.3 Eosinophils % 0.8 Basophils % 0.1 Nucleated Red Blood Cells % 0.0 Neutrophils # 13.5 H Lymphocytes # 1.0 Monocytes # 1.4 H Eosinophils # 0.1 Basophils # 0.0 Nucleated Red Blood Cells # 0.0 Prothrombin Time 14.5 H Prothrombin Time Ratio 1.1 INR International Normalized Ratio 1.13 Medications Medications Current Medications Lorazepam (Ativan) 0.5 mg Q6H PRN IV ANXIETY; Start 10/27/16 at 17:00 Ondansetron HCl (Zofran Inj) 4 mg Q6H PRN IV NAUSEA AND/OR VOMITING; Start at 17:00 Acetaminophen (Tylenol Tab) 650 mg Q6H PRN PO PAIN LEVEL 1-3 OR FEVER Last administered on 10/29/16 10:35; Admin Dose 650 MG; Start 10/27/16 at 17:00 Magnesium Hydroxide (Milk Of Mag) 30 ml DAILY PRN PO CONSTIPATION; Start at 17:00 Bisacodyl (Dulcolax) 5 mg DAILY PRN PO CONSTIPATION Last administered on 08:08; Admin Dose 5 MG; Start 10/27/16 at 17:00 Famotidine (Pepcid) 20 mg Q12 PO Last administered on 10/29/16 08:04; Admin Dose 20 MG; Start 10/27/16 at 21:00 Carvedilol (Coreg) 3.125 mg BID PO Last administered on 10/29/16 08:05; Admin Dose 3.125 MG; Start 10/27/16 at 21:00 Ergocalciferol (Drisdol) 50,000 unit Q7D PO Last administered on 10/27/16 18: 19; Admin Dose 50,000 UNIT; Start 10/27/16 at 17:00 Loratadine (Claritin) 10 mg DAILY PO Last administered on 10/29/16 08:04; Admin Dose 10 MG; Start 10/28/16 at 09:00 Salmeterol Xinafoate/ Fluticasone (Advair 250/50 Diskus) 1 inh BID INH Last administered on 10/29/16 08:08; Admin Dose 1 INH; Start 10/27/16 at 21:00 Tamsulosin HCl (Flomax) 0.8 mg DAILY PO Last administered on 10/29/16 08:05; Admin Dose 0.8 MG; Start 10/28/16 at 09:00 Atorvastatin Calcium 10 mg 10 mg DAILY@21 PO Last administered on 10/28/16 21: 03; Admin Dose 10 MG; Start 10/27/16 at 21:00 Levofloxacin/ Dextrose (Levaquin 750 Mg/ D5W 150 ml (Pmx)) 150 ml @ 100 mls/hr Q24H IVPB Last administered on 10/28/16 17:31; Admin Dose 100 MLS/HR; Start at 17:00 Hydralazine HCl (Apresoline) 10 mg Q6H PRN IV SBP>160; Start 10/27/16 at 17:00 Methylprednisolone Sodium Succinate (Solu-Medrol) 40 mg Q8 IV Last administered on 10/29/16 06:43; Admin Dose 40 MG; Start 10/28/16 at 14:00 Warfarin Sodium (Coumadin) 5 mg DAILY@17 PO Last administered on 10/28/16 17: 32; Admin Dose 5 MG; Start 10/28/16 at 17:00 BETTY FAIRBANKS October 29, 2016 11:34
[2016-10-29] MEDS ORDERED: PROMETHAZINE/CODEINE 5ML CUP PO PRN (14:30)
[2016-10-29] MEDS ORDERED: PROMETHAZINE/CODEINE 5ML CUP PO ONE (14:30)
[2016-10-29] MEDS: MAGNESIUM HYDROXIDE 30ML CUP PO PRN (15:31)
[2016-10-29] MEDS: WARFARIN 5 MG TAB PO SCH (17:51)
[2016-10-29] MEDS: LEVOFLOXACIN 750MG/D5W (PMX) 150 ML IVPB SCH (17:51)
[2016-10-29] MEDS: ATORVASTATIN 10 MG TAB PO SCH (20:58)
--- NOTE | 2016-10-29 23:14 | PN ---
Date/Time of Note Date/Time of Note DATE: 10/29/16 TIME: 23:13 Assessment/Plan VTE Prophylaxis VTE Prophylaxis Intervention: SCD's Lines/Catheters [facility] Urinary Cath still in place: No Assessment/Plan Assessment/Plan 1. Acute chronic obstructive pulmonary disease exacerbation. The patient will be continued on inhaled bronchodilators around the clock and on a p.r.n. basis. The patient will also be maintained on tapering dose of steroids. The patient being followed by pulmonary. 2. Acute on chronic respiratory failure, hypoxic and hypercapnic. The patient will be continued on inhaled bronchodilators. The patient will be provided with supplemental oxygen. [employer] is following the patient. 3. Essential hypertension. The patient will be continued on antihypertensives including p.r.n. antihypertensives for any systolic blood pressure readings greater than 160 mmHg. 4. Paroxysmal atrial fibrillation. The patient will be continued on beta blockers. The patient is already anticoagulated with Coumadin. 5. Benign prostatic hypertrophy. The patient will be continued on tamsulosin. 6. Reported history of coronary artery disease with details unclear. The patient will be continued on anticoagulation. 7. Fluids, electrolytes, and nutrition. Low-cholesterol diet. 8. DVT prophylaxis. On anticoagulation for her underlying atrial fibrillation. 9. Gastrointestinal prophylaxis. Histamine 2 receptor blockers. 10. Plan. Continue inhaled bronchodilators. Continue tapering dose of steroids. Follow pulmonology recommendations. codeine/Promethazine cough syruup downgrade to med/surge floor Subjective 24 Hr Interval Summary Free Text/Dictation SOB better, HR stable, Bp stable, c/o cough Exam/Review of Systems Vital Signs Vitals Vital Signs Date Time Temp Pulse Resp B/P Pulse Ox O2 Delivery O2 Flow Rate FiO2 10/29/16 20:25 97.7 61 20 133/63 95 10/29/16 17:12 Nasal Cannula 2.0 10/28/16 01:24 35 Intake and Output 10/28/16 10/28/16 10/29/16 14:59 22:59 06:59 Intake Total 200 ml 1200 ml 150 ml Output Total 300 ml 1500 ml Balance -100 ml -300 ml 150 ml Results Result Diagram: 10/29/16 0549 10/29/16 0519 Results 24 hrs Laboratory Tests Test 10/29/16 05:19 10/29/16 05:44 10/29/16 05:49 Sodium Level 133 L Potassium Level 4.4 Chloride Level 96 L Carbon Dioxide Level 31 Anion Gap 10 # Blood Urea Nitrogen 19 Creatinine 0.82 Glucose Level 161 Calcium Level 9.1 Phosphorus Level 4.1 Magnesium Level 2.0 White Blood Count 16.3 #H Red Blood Count 3.96 L Hemoglobin 11.7 L Hematocrit 35.6 L Mean Corpuscular Volume 89.9 Mean Corpuscular Hemoglobin 29.5 Mean Corpuscular Hemoglobin Concent 32.9 Red Cell Distribution Width 13.7 Platelet Count 233 Mean Platelet Volume 11.1 H Neutrophils % 82.4 H Lymphocytes % 5.9 L Monocytes % 8.3 Eosinophils % 0.8 Basophils % 0.1 Nucleated Red Blood Cells % 0.0 Neutrophils # 13.5 H Lymphocytes # 1.0 Monocytes # 1.4 H Eosinophils # 0.1 Basophils # 0.0 Nucleated Red Blood Cells # 0.0 Prothrombin Time 14.5 H Prothrombin Time Ratio 1.1 INR International Normalized Ratio 1.13 Medications Medications Current Medications Lorazepam (Ativan) 0.5 mg Q6H PRN IV ANXIETY; Start 10/27/16 at 17:00 Ondansetron HCl (Zofran Inj) 4 mg Q6H PRN IV NAUSEA AND/OR VOMITING; Start at 17:00 Acetaminophen (Tylenol Tab) 650 mg Q6H PRN PO PAIN LEVEL 1-3 OR FEVER Last administered on 10/29/16 10:35; Admin Dose 650 MG; Start 10/27/16 at 17:00 Magnesium Hydroxide (Milk Of Mag) 30 ml DAILY PRN PO CONSTIPATION Last administered on 10/29/16 15:31; Admin Dose 30 ML; Start 10/27/16 at 17:00 Bisacodyl (Dulcolax) 5 mg DAILY PRN PO CONSTIPATION Last administered on 08:08; Admin Dose 5 MG; Start 10/27/16 at 17:00 Famotidine (Pepcid) 20 mg Q12 PO Last administered on 10/29/16 20:58; Admin Dose 20 MG; Start 10/27/16 at 21:00 Carvedilol (Coreg) 3.125 mg BID PO Last administered on 10/29/16 20:59; Admin Dose 3.125 MG; Start 10/27/16 at 21:00 Ergocalciferol (Drisdol) 50,000 unit Q7D PO Last administered on 10/27/16 18: 19; Admin Dose 50,000 UNIT; Start 10/27/16 at 17:00 Loratadine (Claritin) 10 mg DAILY PO Last administered on 10/29/16 08:04; Admin Dose 10 MG; Start 10/28/16 at 09:00 Salmeterol Xinafoate/ Fluticasone (Advair 250/50 Diskus) 1 inh BID INH Last administered on 10/29/16 22:18; Admin Dose 1 INH; Start 10/27/16 at 21:00 Tamsulosin HCl (Flomax) 0.8 mg DAILY PO Last administered on 10/29/16 08:05; Admin Dose 0.8 MG; Start 10/28/16 at 09:00 Atorvastatin Calcium 10 mg 10 mg DAILY@21 PO Last administered on 10/29/16 20: 58; Admin Dose 10 MG; Start 10/27/16 at 21:00 Levofloxacin/ Dextrose (Levaquin 750 Mg/ D5W 150 ml (Pmx)) 150 ml @ 100 mls/hr Q24H IVPB Last administered on 10/29/16 17:51; Admin Dose 100 MLS/HR; Start at 17:00 Hydralazine HCl (Apresoline) 10 mg Q6H PRN IV SBP>160; Start 10/27/16 at 17:00 Methylprednisolone Sodium Succinate (Solu-Medrol) 40 mg Q8 IV Last administered on 10/29/16 22:18; Admin Dose 40 MG; Start 10/28/16 at 14:00 Warfarin Sodium (Coumadin) 5 mg DAILY@17 PO Last administered on 10/29/16 17: 51; Admin Dose 5 MG; Start 10/28/16 at 17:00 Promethazine HCl/ Codeine (Phenergan/ Codeine) 5 ml Q4H PRN PO COUGH; Start at 14:30 MOE TREJO MD October 29, 2016 23:14
[2016-10-30 05:57] LABS: INR 1.08; PT RATIO 1.1
[2016-10-30] MEDS: METHYLPREDNISOLONE 40 MG INJ IV SCH (05:59)
[2016-10-30] MEDS: BISACODYL (EC) 5 MG TAB PO PRN (05:59)
[2016-10-30 07:31] VITALS: BP 117/64; RESP 18
[2016-10-30] MEDS: ALBUTEROL/IPRATROPIUM (NEB) 3 ML AMP HHN SCH ×4 (07:50→20:51)
[2016-10-30] MEDS: SALMETEROL/FLUTICASONE 250/50 INHA INH SCH ×2 (08:53→20:50)
[2016-10-30] MEDS: LORATADINE 10 MG TAB PO SCH (08:53)
[2016-10-30] MEDS: TAMSULOSIN (SR) 0.4 MG CAP PO SCH (08:53)
[2016-10-30] MEDS: DILTIAZEM 30 MG TAB PO SCH ×4 (08:54→20:50)
[2016-10-30] MEDS: FAMOTIDINE 20 MG TAB PO SCH ×2 (08:54→20:49)
--- NOTE | 2016-10-30 13:08 | PN ---
Date/Time of Note Date/Time of Note DATE: 10/30/16 TIME: 13:05 Assessment/Plan VTE Prophylaxis VTE Prophylaxis Intervention: other (coumadin for atrial fibrillation ) Lines/Catheters [facility] Urinary Cath still in place: No Assessment/Plan Assessment/Plan 1. Acute chronic obstructive pulmonary disease exacerbation.. 2. Acute on chronic respiratory failure, hypoxic and hypercapnic. 3. Essential hypertension. 4. Paroxysmal atrial fibrillation. on coumadin for anticoagulation . 5. Benign prostatic hypertrophy. on tamsulosin. 6. Reported history of coronary artery disease with details unclear. The patient will be continued on anticoagulation. DVT prophylaxis. On anticoagulation for her underlying atrial fibrillation. Gastrointestinal prophylaxis. Histamine 2 receptor blockers. 10. Plan. Continue inhaled bronchodilators. Continue tapering dose of steroids. Follow pulmonology recommendations. codeine/Promethazine cough syruup c/o chest pain, nurse advised to give cough syrup pt will need 1-2 more days of streoids Subjective 24 Hr Interval Summary Free Text/Dictation c/o chest pain, SOB improving, BP stable Exam/Review of Systems Vital Signs Vitals Vital Signs Date Time Temp Pulse Resp B/P Pulse Ox O2 Delivery O2 Flow Rate FiO2 10/30/16 12:10 75 18 94 Nasal Cannula 2.0 10/30/16 07:31 98.2 117/64 10/28/16 01:24 35 Intake and Output 10/29/16 10/29/16 10/30/16 15:00 23:00 07:00 Intake Total 600 ml 240 ml Output Total 1500 ml 1400 ml Balance -900 ml -1160 ml Results Result Diagram: 10/29/16 0549 10/29/16 0519 Results 24 hrs Laboratory Tests Test 10/30/16 04:55 Prothrombin Time 14.0 Prothrombin Time Ratio 1.1 INR International Normalized Ratio 1.08 Medications Medications Current Medications Lorazepam (Ativan) 0.5 mg Q6H PRN IV ANXIETY; Start 10/27/16 at 17:00 Ondansetron HCl (Zofran Inj) 4 mg Q6H PRN IV NAUSEA AND/OR VOMITING; Start at 17:00 Acetaminophen (Tylenol Tab) 650 mg Q6H PRN PO PAIN LEVEL 1-3 OR FEVER Last administered on 10/29/16t 10:35; Admin Dose 650 MG; Start 10/27/16 at 17:00 Magnesium Hydroxide (Milk Of Mag) 30 ml DAILY PRN PO CONSTIPATION Last administered on 10/29/16 15:31; Admin Dose 30 ML; Start 10/27/16 at 17:00 Bisacodyl (Dulcolax) 5 mg DAILY PRN PO CONSTIPATION Last administered on 05:59; Admin Dose 5 MG; Start 10/27/16 at 17:00 Famotidine (Pepcid) 20 mg Q12 PO Last administered on 10/30/16 08:54; Admin Dose 20 MG; Start 10/27/16 at 21:00 Ergocalciferol (Drisdol) 50,000 unit Q7D PO Last administered on 10/27/16 18: 19; Admin Dose 50,000 UNIT; Start 10/27/16 at 17:00 Loratadine (Claritin) 10 mg DAILY PO Last administered on 10/30/16 08:53; Admin Dose 10 MG; Start 10/28/16 at 09:00 Salmeterol Xinafoate/ Fluticasone (Advair 250/50 Diskus) 1 inh BID INH Last administered on 10/30/16 08:53; Admin Dose 1 INH; Start 10/27/16 at 21:00 Tamsulosin HCl (Flomax) 0.8 mg DAILY PO Last administered on 10/30/16 08:53; Admin Dose 0.8 MG; Start 10/28/16 at 09:00 Atorvastatin Calcium 10 mg 10 mg DAILY@21 PO Last administered on 10/29/16 20: 58; Admin Dose 10 MG; Start 10/27/16 at 21:00 Levofloxacin/ Dextrose (Levaquin 750 Mg/ D5W 150 ml (Pmx)) 150 ml @ 100 mls/hr Q24H IVPB Last administered on 10/29/16 17:51; Admin Dose 100 MLS/HR; Start at 17:00 Hydralazine HCl (Apresoline) 10 mg Q6H PRN IV SBP>160; Start 10/27/16 at 17:00 Methylprednisolone Sodium Succinate (Solu-Medrol) 40 mg Q8 IV Last administered on 10/30/16 05:59; Admin Dose 40 MG; Start 10/28/16 at 14:00 Warfarin Sodium (Coumadin) 5 mg DAILY@17 PO Last administered on 10/29/16 17: 51; Admin Dose 5 MG; Start 10/28/16 at 17:00 Promethazine HCl/ Codeine (Phenergan/ Codeine) 5 ml Q4H PRN PO COUGH Last administered on 10/30/16 08:55; Admin Dose 5 ML; Start 10/29/16 at 14:30 Diltiazem HCl (Cardizem) 30 mg QID PO Last administered on 10/30/16 08:54; Admin Dose 30 MG; Start 10/30/16 at 09:00 MOE TREJO MD October 30, 2016 13:08
--- NOTE | 2016-10-30 14:19 | CONS ---
Date/Time of Note Date/Time of Note DATE: 10/30/16 TIME: 14:17 Assessment/Plan Assessment/Plan Additional Assessment/Plan Assessment recommendations; 1. Patient admitted for COPD exacerbation and acute bronchitis with significant clinical improvement. 2. Other comorbidities include atrial fibrillation, BPH, hypertension, which all appear fairly stable. Discontinue Solu-Medrol. Start the patient on prednisone 30 mg a day. Continue other medications. Consultation Date/Type/Reason Admit Date/Time October 27, 2016 at 16:17 Initial Consult Date 10/28/16 Type of Consultation: Pulmonary 24 HR Interval Summary Free Text/Dictation Patient condition is much improved. With marked reduction chest congestion and shortness of breath. General exam; elderly male, awake alert currently in no distress. Exam/Review of Systems Vital Signs Vitals Vital Signs Date Time Temp Pulse Resp B/P Pulse Ox O2 Delivery O2 Flow Rate FiO2 10/30/16 12:10 75 18 94 Nasal Cannula 2.0 10/30/16 07:31 98.2 117/64 10/28/16 01:24 35 Intake and Output 10/29/16 10/29/16 10/30/16 15:00 23:00 07:00 Intake Total 600 ml 240 ml Output Total 1500 ml 1400 ml Balance -900 ml -1160 ml Exam HEENT exam; supple neck, no JVD. No lymphadenopathy. Midline trachea. No thyromegaly. Pharynx is clear. Chest examination; diminished but clear vessel. No additional. S1-S2 audible, irregular rhythm. No murmurs. Abdomen examination; soft, nondistended. No organomegaly. Bowel sounds audible. Extremity examination; no peripheral edema. 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 Results Result Diagram: 10/29/16 0549 10/29/16 0519 Results 24 hrs Laboratory Tests Test 10/30/16 04:55 Prothrombin Time 14.0 Prothrombin Time Ratio 1.1 INR International Normalized Ratio 1.08 Medications Medications Current Medications Lorazepam (Ativan) 0.5 mg Q6H PRN IV ANXIETY; Start 10/27/16 at 17:00 Ondansetron HCl (Zofran Inj) 4 mg Q6H PRN IV NAUSEA AND/OR VOMITING; Start at 17:00 Acetaminophen (Tylenol Tab) 650 mg Q6H PRN PO PAIN LEVEL 1-3 OR FEVER Last administered on 10/29/16 10:35; Admin Dose 650 MG; Start 10/27/16 at 17:00 Magnesium Hydroxide (Milk Of Mag) 30 ml DAILY PRN PO CONSTIPATION Last administered on 10/29/16 15:31; Admin Dose 30 ML; Start 10/27/16 at 17:00 Bisacodyl (Dulcolax) 5 mg DAILY PRN PO CONSTIPATION Last administered on 05:59; Admin Dose 5 MG; Start 10/27/16 at 17:00 Famotidine (Pepcid) 20 mg Q12 PO Last administered on 10/30/16 08:54; Admin Dose 20 MG; Start 10/27/16 at 21:00 Ergocalciferol (Drisdol) 50,000 unit Q7D PO Last administered on 10/27/16 18: 19; Admin Dose 50,000 UNIT; Start 10/27/16 at 17:00 Loratadine (Claritin) 10 mg DAILY PO Last administered on 10/30/16 08:53; Admin Dose 10 MG; Start 10/28/16 at 09:00 Salmeterol Xinafoate/ Fluticasone (Advair 250/50 Diskus) 1 inh BID INH Last administered on 10/30/16 08:53; Admin Dose 1 INH; Start 10/27/16 at 21:00 Tamsulosin HCl (Flomax) 0.8 mg DAILY PO Last administered on 10/30/16 08:53; Admin Dose 0.8 MG; Start 10/28/16 at 09:00 Atorvastatin Calcium 10 mg 10 mg DAILY@21 PO Last administered on 10/29/16 20: 58; Admin Dose 10 MG; Start 10/27/16 at 21:00 Levofloxacin/ Dextrose (Levaquin 750 Mg/ D5W 150 ml (Pmx)) 150 ml @ 100 mls/hr Q24H IVPB Last administered on 10/29/16 17:51; Admin Dose 100 MLS/HR; Start at 17:00 Hydralazine HCl (Apresoline) 10 mg Q6H PRN IV SBP>160; Start 10/27/16 at 17:00 Methylprednisolone Sodium Succinate (Solu-Medrol) 40 mg Q8 IV Last administered on 10/30/16 05:59; Admin Dose 40 MG; Start 10/28/16 at 14:00 Warfarin Sodium (Coumadin) 5 mg DAILY@17 PO Last administered on 10/29/16 17: 51; Admin Dose 5 MG; Start 10/28/16 at 17:00 Promethazine HCl/ Codeine (Phenergan/ Codeine) 5 ml Q4H PRN PO COUGH Last administered on 10/30/16 08:55; Admin Dose 5 ML; Start 10/29/16 at 14:30 Diltiazem HCl (Cardizem) 30 mg QID PO Last administered on 10/30/16 08:54; Admin Dose 30 MG; Start 10/30/16 at 09:00 BETTY FAIRBANKS October 30, 2016 14:19
[2016-10-30] MEDS: predniSONE 10 MG TAB PO SCH (14:30)
[2016-10-30] MEDS: LEVOFLOXACIN 750MG/D5W (PMX) 150 ML IVPB SCH (17:55)
[2016-10-30] MEDS: WARFARIN 5 MG TAB PO SCH (17:55)
[2016-10-30 19:50] VITALS: BP 112/58; RESP 20
[2016-10-30] MEDS: ATORVASTATIN 10 MG TAB PO SCH (20:49)
[2016-10-31] MEDS: MAGNESIUM HYDROXIDE 30ML CUP PO PRN ×2 (03:12→20:43)
[2016-10-31 07:38] VITALS: BP 112/53; RESP 18
[2016-10-31] MEDS: ALBUTEROL/IPRATROPIUM (NEB) 3 ML AMP HHN SCH ×4 (08:28→21:57)
[2016-10-31] MEDS: SALMETEROL/FLUTICASONE 250/50 INHA INH SCH ×2 (09:20→20:38)
[2016-10-31] MEDS: TAMSULOSIN (SR) 0.4 MG CAP PO SCH (09:20)
[2016-10-31] MEDS: predniSONE 10 MG TAB PO SCH (09:20)
[2016-10-31] MEDS: LORATADINE 10 MG TAB PO SCH (09:20)
[2016-10-31] MEDS: FAMOTIDINE 20 MG TAB PO SCH ×2 (09:20→20:38)
[2016-10-31] MEDS: DILTIAZEM 30 MG TAB PO SCH ×4 (09:21→20:39)
[2016-10-31] MEDS: BISACODYL (EC) 5 MG TAB PO PRN (09:45)
--- NOTE | 2016-10-31 11:45 | CONS ---
Date/Time of Note Date/Time of Note DATE: 10/31/16 TIME: 11:44 Assessment/Plan Assessment/Plan Additional Assessment/Plan Assessment recommendations; 1. P patient admitted for COPD exacerbation and acute bronchitis with significant clinical improvement. 2. Other comorbidities include atrial fibrillation, hypertension and BPH, all appear fairly stable. Increase prednisone to 40 mg daily from 30 mg a day continue other medications. Consultation Date/Type/Reason Admit Date/Time October 27, 2016 at 16:17 Initial Consult Date 10/28/16 Type of Consultation: Pulmonary 24 HR Interval Summary Free Text/Dictation Patient condition is stable. Remains awake alert. Reporting much improved shortness of breath. As well as significant production chest congestion and sputum production. General exam; elderly male, awake alert currently in no distress. Exam/Review of Systems Vital Signs Vitals Vital Signs Date Time Temp Pulse Resp B/P Pulse Ox O2 Delivery O2 Flow Rate FiO2 10/31/16 08:31 84 18 97 Nasal Cannula 2.0 10/31/16 07:38 98.9 112/53 10/28/16 01:24 35 Intake and Output 10/30/16 10/30/16 10/31/16 15:00 23:00 07:00 Intake Total 1230 ml 240 ml Output Total 1150 ml 300 ml Balance 80 ml -60 ml Exam HEENT exam; supple neck, no JVD. No lymphadenopathy. Midline trachea. No thyromegaly. Pharynx is clear. Patient does have multiple carious teeth. Chest examination; diminished breath sound bilaterally with very mild expiratory wheezing. S1-S2 audible, no murmurs. Irregular rhythm. Abdomen examination; soft, no organomegaly. Bowel sounds audible. Extremity examination; no peripheral edema. 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 Results Result Diagram: 10/29/16 0549 10/29/16 0519 Medications Medications Current Medications Lorazepam (Ativan) 0.5 mg Q6H PRN IV ANXIETY; Start 10/27/16 at 17:00 Ondansetron HCl (Zofran Inj) 4 mg Q6H PRN IV NAUSEA AND/OR VOMITING; Start at 17:00 Acetaminophen (Tylenol Tab) 650 mg Q6H PRN PO PAIN LEVEL 1-3 OR FEVER Last administered on 10/29/16t 10:35; Admin Dose 650 MG; Start 10/27/16 at 17:00 Magnesium Hydroxide (Milk Of Mag) 30 ml DAILY PRN PO CONSTIPATION Last administered on 10/31/16 03:12; Admin Dose 30 ML; Start 10/27/16 at 17:00 Bisacodyl (Dulcolax) 5 mg DAILY PRN PO CONSTIPATION Last administered on 09:45; Admin Dose 5 MG; Start 10/27/16 at 17:00 Famotidine (Pepcid) 20 mg Q12 PO Last administered on 10/31/16 09:20; Admin Dose 20 MG; Start 10/27/16 at 21:00 Ergocalciferol (Drisdol) 50,000 unit Q7D PO Last administered on 10/27/16 18: 19; Admin Dose 50,000 UNIT; Start 10/27/16 at 17:00 Loratadine (Claritin) 10 mg DAILY PO Last administered on 10/31/16 09:20; Admin Dose 10 MG; Start 10/28/16 at 09:00 Salmeterol Xinafoate/ Fluticasone (Advair 250/50 Diskus) 1 inh BID INH Last administered on 10/31/16 09:20; Admin Dose 1 INH; Start 10/27/16 at 21:00 Tamsulosin HCl (Flomax) 0.8 mg DAILY PO Last administered on 10/31/16 09:20; Admin Dose 0.8 MG; Start 10/28/16 at 09:00 Atorvastatin Calcium 10 mg 10 mg DAILY@21 PO Last administered on 10/30/16 20: 49; Admin Dose 10 MG; Start 10/27/16 at 21:00 Levofloxacin/ Dextrose (Levaquin 750 Mg/ D5W 150 ml (Pmx)) 150 ml @ 100 mls/hr Q24H IVPB Last administered on 10/30/16 17:55; Admin Dose 100 MLS/HR; Start at 17:00 Hydralazine HCl (Apresoline) 10 mg Q6H PRN IV SBP>160; Start 10/27/16 at 17:00 Warfarin Sodium (Coumadin) 5 mg DAILY@17 PO Last administered on 10/30/16 17: 55; Admin Dose 5 MG; Start 10/28/16 at 17:00 Promethazine HCl/ Codeine (Phenergan/ Codeine) 5 ml Q4H PRN PO COUGH Last administered on 10/30/16 08:55; Admin Dose 5 ML; Start 10/29/16 at 14:30 Diltiazem HCl (Cardizem) 30 mg QID PO Last administered on 10/31/16 09:21; Admin Dose 30 MG; Start 10/30/16 at 09:00 Prednisone (Prednisone) 30 mg DAILY PO Last administered on 10/31/16 09:20; Admin Dose 30 MG; Start 10/30/16 at 14:30 BETTY FAIRBANKS October 31, 2016 11:45
[2016-10-31] MEDS ORDERED: predniSONE 20 MG TAB PO SCH (12:00)
[2016-10-31] MEDS ORDERED: predniSONE 10 MG TAB PO ONE (13:00)
--- NOTE | 2016-10-31 16:13 | PN ---
Date/Time of Note Date/Time of Note DATE: 10/31/16 TIME: 16:12 Assessment/Plan VTE Prophylaxis VTE Prophylaxis Intervention: other (couamdin ) Lines/Catheters IV Catheter Type (from [facility]): [facility] Urinary Cath still in place: No Assessment/Plan Assessment/Plan 1. Acute chronic obstructive pulmonary disease exacerbation.. 2. Acute on chronic respiratory failure, hypoxic and hypercapnic. 3. Essential hypertension. 4. Paroxysmal atrial fibrillation. on coumadin for anticoagulation . 5. Benign prostatic hypertrophy. on tamsulosin. 6. Reported history of coronary artery disease with details unclear. The patient will be continued on anticoagulation. DVT prophylaxis. On anticoagulation for her underlying atrial fibrillation. Gastrointestinal prophylaxis. Histamine 2 receptor blockers. 10. Plan. Continue inhaled bronchodilators. follow up pulmonary recommendations codeine/Promethazine cough syruup IV levaquin , Po prednisone possible d/c on Tuesday vs Tuesday if symptoms continue to improve Exam/Review of Systems Vital Signs Vitals Vital Signs Date Time Temp Pulse Resp B/P Pulse Ox O2 Delivery O2 Flow Rate FiO2 10/31/16 12:19 70 18 97 Nasal Cannula 2.0 10/31/16 07:38 98.9 112/53 10/28/16 01:24 35 Intake and Output 10/30/16 10/30/16 10/31/16 15:00 23:00 07:00 Intake Total 1230 ml 240 ml Output Total 1150 ml 300 ml Balance 80 ml -60 ml Exam H EENT exam; supple neck, no JVD. No lymphadenopathy. Midline trachea. No thyromegaly. Pharynx is clear. Chest examined; diminished breath sound bilaterally. S1-S2 audible, irregular rhythm. No murmurs. Abdomen examination; protuberant. No organomegaly. Bowel sounds audible. Nontender. Extremity examination; no peripheral edema. DIET AIDE examination; no focal deficit. Results Result Diagram: 10/29/16 0549 10/29/16 0519 Medications Medications Current Medications Lorazepam (Ativan) 0.5 mg Q6H PRN IV ANXIETY; Start 10/27/16 at 17:00 Ondansetron HCl (Zofran Inj) 4 mg Q6H PRN IV NAUSEA AND/OR VOMITING; Start at 17:00 Acetaminophen (Tylenol Tab) 650 mg Q6H PRN PO PAIN LEVEL 1-3 OR FEVER Last administered on 10/29/16 10:35; Admin Dose 650 MG; Start 10/27/16 at 17:00 Magnesium Hydroxide (Milk Of Mag) 30 ml DAILY PRN PO CONSTIPATION Last administered on 10/31/16 03:12; Admin Dose 30 ML; Start 10/27/16 at 17:00 Bisacodyl (Dulcolax) 5 mg DAILY PRN PO CONSTIPATION Last administered on 09:45; Admin Dose 5 MG; Start 10/27/16 at 17:00 Famotidine (Pepcid) 20 mg Q12 PO Last administered on 10/31/16 09:20; Admin Dose 20 MG; Start 10/27/16 at 21:00 Ergocalciferol (Drisdol) 50,000 unit Q7D PO Last administered on 10/27/16 18: 19; Admin Dose 50,000 UNIT; Start 10/27/16 at 17:00 Loratadine (Claritin) 10 mg DAILY PO Last administered on 10/31/16 09:20; Admin Dose 10 MG; Start 10/28/16 at 09:00 Salmeterol Xinafoate/ Fluticasone (Advair 250/50 Diskus) 1 inh BID INH Last administered on 10/31/16 09:20; Admin Dose 1 INH; Start 10/27/16 at 21:00 Tamsulosin HCl (Flomax) 0.8 mg DAILY PO Last administered on 10/31/16 09:20; Admin Dose 0.8 MG; Start 10/28/16 at 09:00 Atorvastatin Calcium 10 mg 10 mg DAILY@21 PO Last administered on 10/30/16 20: 49; Admin Dose 10 MG; Start 10/27/16 at 21:00 Levofloxacin/ Dextrose (Levaquin 750 Mg/ D5W 150 ml (Pmx)) 150 ml @ 100 mls/hr Q24H IVPB Last administered on 10/30/16 17:55; Admin Dose 100 MLS/HR; Start at 17:00 Hydralazine HCl (Apresoline) 10 mg Q6H PRN IV SBP>160; Start 10/27/16 at 17:00 Warfarin Sodium (Coumadin) 5 mg DAILY@17 PO Last administered on 5/20/17at 17: 55; Admin Dose 5 MG; Start 10/28/16 at 17:00 Promethazine HCl/ Codeine (Phenergan/ Codeine) 5 ml Q4H PRN PO COUGH Last administered on 10/30/16t 08:55; Admin Dose 5 ML; Start 10/29/16 at 14:30 Diltiazem HCl (Cardizem) 30 mg QID PO Last administered on 10/31/16t 14:26; Admin Dose 30 MG; Start 10/30/16 at 09:00 Prednisone (Prednisone) 40 mg DAILY PO ; Start 11/01/16 at 12:00 MOE TREJO MD October 31, 2016 16:13
[2016-10-31] MEDS: WARFARIN 5 MG TAB PO SCH (17:16)
[2016-10-31] MEDS: LEVOFLOXACIN 750MG/D5W (PMX) 150 ML IVPB SCH (17:16)
[2016-10-31 19:35] VITALS: BP 117/59; RESP 18
[2016-10-31] MEDS: ATORVASTATIN 10 MG TAB PO SCH (20:38)
[2016-11-01 05:54] LABS: ADD SCAN DIFF NO
[2016-11-01 05:58] LABS: BASOPHILS % 0.1 % (0.0-2.0); EOSINOPHILS # 0.1 10^3/ul (0.0-0.5); EOSINOPHILS % 0.6 % (0.0-7.0); HEMATOCRIT 36.3 % (42.0-52.0); HEMOGLOBIN 12.1 g/dl (14.0-18.0); LYMPHOCYTES % 7.2 % (15.0-51.0); MEAN CORPUSCULAR HEMOGLOBIN 30.3 pg (29.0-33.0); MEAN CORPUSCULAR HGB CONC 33.3 g/dl (32.0-37.0); MEAN CORPUSCULAR VOLUME 90.8 fl (82.0-101.0); MEAN PLATELET VOLUME 10.7 fl (7.4-10.4); MONOCYTE # 1.5 10^3/ul (0.3-0.9); MONOCYTES % 10.3 % (0.0-11.0); NEUTROPHIL # 11.2 10^3/ul (1.6-7.5); PLATELET COUNT 202 10^3/UL (140-415); RED CELL DISTRIBUTION WIDTH 13.5 % (11.5-14.5); WHITE BLOOD COUNT 14.1 10^3/ul (4.8-10.8)
[2016-11-01 06:11] LABS: ALBUMIN 3.1 g/dl (3.3-4.9)
[2016-11-01 06:12] LABS: POTASSIUM 4.2 mmol/L (3.5-5.1)
[2016-11-01 06:13] LABS: INR 1.91; PROTIME 22.1 Sec (12.2-14.2); PT RATIO 1.7
[2016-11-01 06:14] LABS: BILIRUBIN,INDIRECT 0.2 mg/dl (0-1.1); BILIRUBIN,TOTAL 0.2 mg/dl (0.2-1.3); CREATININE 0.85 mg/dl (0.61-1.24)
[2016-11-01 06:15] LABS: ALBUMIN/GLOBULIN RATIO 1.14; CALCIUM 8.6 mg/dl (8.4-10.2); TOTAL PROTEIN 5.8 g/dl (6.1-8.1)
--- NOTE | 2016-11-01 07:05 | PN ---
DATE: 10/31/2016 CARDIOLOGY FOLLOWUP SUBJECTIVE: Discussed with the staff. The patient with no chest pain or pressure. ____ shortness of breath, but appeared to be improving. Complains of constipation, abdominal discomfort. No palpi tations. MEDICATIONS: Reviewed. PHYSICAL EXAMINATION: VITAL SIGNS: Temperature 98.9, heart rate of 69, blood pressure 112/53, respirations 18, saturating 94%. HEENT: Normocephalic, atraumatic. Pupils are equal. CARDIOVASCULAR: Regular rate and rhythm, with no significant murmur, gallop or rub appreciated. PULMONARY: With diffuse wheezes, but improved though. GASTROINTESTINAL: Soft, nontender. EXTREMITIES: With trivial edema. NEUROLOGIC: Awake and alert. PSYCHIATRIC: Appeared to be calm. LABORATORY: Still pending. ASSESSMENT AND PLAN: 1. Chronic obstructive pulmonary disease, asthma exacerbation. 2. History of paroxysmal atrial fibrillation. 3. Hypertension. 4. Constipation. 5. History of benign prostatic hypertrophy. 6. Possible history of coronary artery disease. RECOMMENDATIONS: The patient is off of beta ana luisa due to his severe wheezing. Continue with the Cardizem, and Coumadin to be adjusted to get a goal INR of 2 to 3. Statin to be continued. Pulmona ry care as per pulmonary. Dr. Kapoor to follow the patient tomorrow. Dictated By: VAIBHAV VALERO/ANASTACIA Conf#: [id number] DID#: [id number]
--- NOTE | 2016-11-01 07:27 | CONS ---
DATE OF ADMISSION: 10/27/2016 DATE OF CONSULTATION: 10/30/2016 REASON FOR CONSULTATION: Chest pain, atrial fibrillation. CHIEF COMPLAINT: Shortness of breath, cough. HISTORY OF PRESENT ILLNESS: Thank you for this referral. History obtained from the patient and ext ensive review of the old chart, discussion with the staff and physicians. Pleasant 76-year-old sue desai with history of COPD, asthma, hypertension, paroxysmal atrial fibrillation, possibly coronary artery disease who came to the emergency room with complaint of dyspnea. The patient apparently wit h COPD, asthma exacerbation. He came in with cough, mostly dry cough, also with severe shortness of breath and wheezing. Also, when he coughs, he gets chest pain with it. The patient was recently d ischarged from the hospital 5 days ago after treatment for a similar problem. PAST MEDICAL HISTORY: History of COPD, coronary artery disease, BPH, obesity, paroxysmal atrial fib rillation and hypertension. MEDICATIONS: As per medication reconciliation, personally reviewed, they include Coreg as well. SOCIAL HISTORY: The patient denies active smoking to me. ALLERGIES: NO REPORTED ALLERGIES. FAMILY HISTORY: No reported coronary artery disease. REVIEW OF SYSTEMS: As above mentioned, denied all other. Has poor memory as well. PHYSICAL EXAMINATION: VITAL SIGNS: Temperature 98.2, heart rate of 60, blood pressure 17____/74, respiration rate of 18, saturating 94%. GENERAL: Normocephalic, atraumatic. Obese gentleman. HEENT: Pupils are equal. CARDIOVASCULAR: Regular rate and rhythm. Grade I systolic murmur. PULMONARY: With diffuse wheezes and rhonchi. GASTROINTESTINAL: Soft, nontender. EXTREMITIES: No significant edema. NEUROLOGIC: Awake and alert. PSYCHIATRIC: Calm, pleasant. LABORATORY: INR is 1. Sodium 133, potassium is 4.4, BUN of 19, creatinine 0.82, glucose 161. WBC of 16.3, hemoglobin 11.7, platelets 233. Chest x-ray on the shows cardiomegaly, clear lungs. Echocardiogram in August was personally reviewed, showed normal ejection fraction. EKG shows normal sinus rhythm. Low voltage. Nonspecific ST abnormalities. TSH was 0.36. Free T4 1.34. Troponin o n the and were less than 0.12. ASSESSMENT AND PLAN: 1. Chest pain, pleuritic and non-anginal secondary to his pulmonary disease. 2. Asthma, ____ exacerbation, appears to be severe and recurrent. 3. History of paroxysmal atrial fibrillation, currently appears to be in sinus rhythm. 4. History of hypertension, under good control. 5. Hypercapnic hypoxemic respiratory failure secondary to above. 6. History of BPH, history of possible coronary artery disease, history is not clear. RECOMMENDATIONS: Coumadin will be continued and adjusted to goal INR 2 to 3 given his paroxysmal at rial fibrillation. The patient has ____. I would discontinue the Coreg given his active wheezing. The patient probably is not able to tolerate any beta ana luisa at this point. I will start him on Ca rdizem stat. Pulmonary care as per Dr. Glover and associates. Dictated By: VAIBHAV ROWE MD AV/ANASTACIA Conf#: [id number] DID#: [id number] CC: TONY IVY WAREHOUSE FOREMAN;*EndCC*
[2016-11-01 07:57] VITALS: BP 135/60; RESP 20
[2016-11-01] MEDS: ALBUTEROL/IPRATROPIUM (NEB) 3 ML AMP HHN SCH ×4 (08:16→20:41)
[2016-11-01] MEDS: SALMETEROL/FLUTICASONE 250/50 INHA INH SCH ×2 (08:26→21:02)
[2016-11-01] MEDS: TAMSULOSIN (SR) 0.4 MG CAP PO SCH (08:26)
[2016-11-01] MEDS: LORATADINE 10 MG TAB PO SCH (08:27)
[2016-11-01] MEDS: FAMOTIDINE 20 MG TAB PO SCH ×2 (08:27→21:01)
[2016-11-01] MEDS: DILTIAZEM 30 MG TAB PO SCH ×4 (08:27→21:01)
[2016-11-01] MEDS: BISACODYL (EC) 5 MG TAB PO PRN (08:27)
--- NOTE | 2016-11-01 11:03 | CONS ---
Date/Time of Note Date/Time of Note DATE: 11/01/16 TIME: 11:02 Consult Date/Type/Reason Admit Date/Time October 27, 2016 at 16:17 Initial Consult Date 10/28/16 Type of Consultation: Pulmonary Subjective Patient stable this morning awake alert and oriented Objective Vital Signs Date Time Temp Pulse Resp B/P Pulse Ox O2 Delivery O2 Flow Rate FiO2 11/01/16 08:17 68 18 98 Nasal Cannula 2.0 11/01/16 07:57 97.7 135/60 Intake and Output 10/31/16 10/31/16 11/01/16 15:00 23:00 07:00 Intake Total 1830 ml 800 ml Output Total 900 ml 950 ml Balance 930 ml -150 ml Results/Medications Result Diagram: 11/01/16 0531 11/01/16 0531 Results 24 hrs Laboratory Tests Test 11/01/16 05:31 White Blood Count 14.1 H Red Blood Count 4.00 L Hemoglobin 12.1 L Hematocrit 36.3 L Mean Corpuscular Volume 90.8 Mean Corpuscular Hemoglobin 30.3 Mean Corpuscular Hemoglobin Concent 33.3 Red Cell Distribution Width 13.5 Platelet Count 202 Mean Platelet Volume 10.7 H Neutrophils % 79.0 H Lymphocytes % 7.2 L Monocytes % 10.3 Eosinophils % 0.6 Basophils % 0.1 Nucleated Red Blood Cells % 0.0 Neutrophils # 11.2 H Lymphocytes # 1.0 Monocytes # 1.5 H Eosinophils # 0.1 Basophils # 0.0 Nucleated Red Blood Cells # 0.0 Prothrombin Time 22.1 #H Prothrombin Time Ratio 1.7 INR International Normalized Ratio 1.91 Sodium Level 134 L Potassium Level 4.2 Chloride Level 90 L Carbon Dioxide Level 33 H Anion Gap 15 Blood Urea Nitrogen 23 H Creatinine 0.85 Glucose Level 123 Calcium Level 8.6 Total Bilirubin 0.2 Direct Bilirubin 0.00 Indirect Bilirubin 0.2 Aspartate Amino Transf (AST/SGOT) 23 Alanine Aminotransferase (ALT/SGPT) 37 Alkaline Phosphatase 49 Total Protein 5.8 L Albumin 3.1 L Globulin 2.70 Albumin/Globulin Ratio 1.14 Medications Current Medications Lorazepam (Ativan) 0.5 mg Q6H PRN IV ANXIETY; Start 10/27/16 at 17:00 Ondansetron HCl (Zofran Inj) 4 mg Q6H PRN IV NAUSEA AND/OR VOMITING; Start at 17:00 Acetaminophen (Tylenol Tab) 650 mg Q6H PRN PO PAIN LEVEL 1-3 OR FEVER Last administered on 10/29/16 10:35; Admin Dose 650 MG; Start 10/27/16 at 17:00 Magnesium Hydroxide (Milk Of Mag) 30 ml DAILY PRN PO CONSTIPATION Last administered on 10/31/16 20:43; Admin Dose 30 ML; Start 10/27/16 at 17:00 Bisacodyl (Dulcolax) 5 mg DAILY PRN PO CONSTIPATION Last administered on 08:27; Admin Dose 5 MG; Start 10/27/16 at 17:00 Famotidine (Pepcid) 20 mg Q12 PO Last administered on 11/01/16 08:27; Admin Dose 20 MG; Start 10/27/16 at 21:00 Ergocalciferol (Drisdol) 50,000 unit Q7D PO Last administered on 10/27/16 18: 19; Admin Dose 50,000 UNIT; Start 10/27/16 at 17:00 Loratadine (Claritin) 10 mg DAILY PO Last administered on 11/01/16 08:27; Admin Dose 10 MG; Start 10/28/16 at 09:00 Salmeterol Xinafoate/ Fluticasone (Advair 250/50 Diskus) 1 inh BID INH Last administered on 11/01/16 08:26; Admin Dose 1 INH; Start 10/27/16 at 21:00 Tamsulosin HCl (Flomax) 0.8 mg DAILY PO Last administered on 11/01/16 08:26; Admin Dose 0.8 MG; Start 10/28/16 at 09:00 Atorvastatin Calcium 10 mg 10 mg DAILY@21 PO Last administered on 10/31/16 20: 38; Admin Dose 10 MG; Start 10/27/16 at 21:00 Levofloxacin/ Dextrose (Levaquin 750 Mg/ D5W 150 ml (Pmx)) 150 ml @ 100 mls/hr Q24H IVPB Last administered on 10/31/16 17:16; Admin Dose 100 MLS/HR; Start at 17:00 Hydralazine HCl (Apresoline) 10 mg Q6H PRN IV SBP>160; Start 10/27/16 at 17:00 Warfarin Sodium (Coumadin) 5 mg DAILY@17 PO Last administered on 10/31/16 17: 16; Admin Dose 5 MG; Start 10/28/16 at 17:00 Promethazine HCl/ Codeine (Phenergan/ Codeine) 5 ml Q4H PRN PO COUGH Last administered on 10/30/16 08:55; Admin Dose 5 ML; Start 10/29/16 at 14:30 Diltiazem HCl (Cardizem) 30 mg QID PO Last administered on 11/01/16 08:27; Admin Dose 30 MG; Start 10/30/16 at 09:00 Prednisone (Prednisone) 40 mg DAILY PO ; Start 11/01/16 at 12:00 Assessment/Plan Chief Complaint/Hosp Course Assessment 1. COPD exacerbation acute on chronic 2. History of chronic hypoxemia 3. Probable acute tracheobronchitis with subsequent leukocytosis Plan 1. Continue bronchodilators 2. Decrease O2 as tolerated 3. Ambulate as tolerated 4. Decrease steroids 5. Patient is known to me from the office I will follow up on discharge Problems: LOC[facility] VIZCARRA [facility], [facility] November 01, 2016 11:03
--- NOTE | 2016-11-01 11:13 | PN ---
Date/Time of Note Date/Time of Note DATE: 11/01/16 TIME: 11:08 Assessment/Plan VTE Prophylaxis VTE Prophylaxis Intervention: other (WARFARIN) Lines/Catheters IV [facility]from [facility] Saline Lock Urinary Cath still in place: No Assessment/Plan Chief Complaint/Hosp Course Assessment and plan 1. COPD exacerbation. Continue on bronchodilators and steroid treatment. Continue O2 supplement. 2. Acute on chronic respiratory failure secondary to #1. Zig Zag Stitcher following. Continue bronchodilators. Await for clinical improvement of respiratory status 3. Essential hypertension. Continue antihypertensives and adjust as needed 4. Paroxysmal atrial fibrillation. Continue on Coumadin medication. Rate stable at present. 5. BPH. Continue Flomax 6. History of CAD. Continue on statin medication. 7. Suspect acute tracheobronchitis. Empirically on antibiotic. Disposition plan: Still noted with active bronchospasm. Continue on steroid treatment. Titrate off O2 as tolerated. Discharge when medically stable Discussed plan of care with Dr. Castro Problems: Subjective 24 Hr Interval Summary Free Text/Dictation Still with some shortness of breath and wheezing. Exam/Review of Systems Vital Signs Vitals Vital Signs Date Time Temp Pulse Resp B/P Pulse Ox O2 Delivery O2 Flow Rate FiO2 11/01/16 08:17 68 18 98 Nasal Cannula 2.0 11/01/16 07:57 97.7 135/60 Intake and Output 10/31/16 10/31/16 11/01/16 15:00 23:00 07:00 Intake Total 1830 ml 800 ml Output Total 900 ml 950 ml Balance 930 ml -150 ml Exam Constitutional: alert, oriented Psych: nl mood/affect Head: normocephalic Neck: No jvd Respiratory: wheezing Cardiovascular: regular rate and rhythm Gastrointestinal: non-tender, soft Musculoskeletal: nl extremities to inspection Neurological: nl mental status, nl speech Results Result Diagram: 11/01/16 0531 11/01/16 0531 Results 24 hrs Laboratory Tests Test 11/01/16 05:31 White Blood Count 14.1 H Red Blood Count 4.00 L Hemoglobin 12.1 L Hematocrit 36.3 L Mean Corpuscular Volume 90.8 Mean Corpuscular Hemoglobin 30.3 Mean Corpuscular Hemoglobin Concent 33.3 Red Cell Distribution Width 13.5 Platelet Count 202 Mean Platelet Volume 10.7 H Neutrophils % 79.0 H Lymphocytes % 7.2 L Monocytes % 10.3 Eosinophils % 0.6 Basophils % 0.1 Nucleated Red Blood Cells % 0.0 Neutrophils # 11.2 H Lymphocytes # 1.0 Monocytes # 1.5 H Eosinophils # 0.1 Basophils # 0.0 Nucleated Red Blood Cells # 0.0 Prothrombin Time 22.1 #H Prothrombin Time Ratio 1.7 INR International Normalized Ratio 1.91 Sodium Level 134 L Potassium Level 4.2 Chloride Level 90 L Carbon Dioxide Level 33 H Anion Gap 15 Blood Urea Nitrogen 23 H Creatinine 0.85 Glucose Level 123 Calcium Level 8.6 Total Bilirubin 0.2 Direct Bilirubin 0.00 Indirect Bilirubin 0.2 Aspartate Amino Transf (AST/SGOT) 23 Alanine Aminotransferase (ALT/SGPT) 37 Alkaline Phosphatase 49 Total Protein 5.8 L Albumin 3.1 L Globulin 2.70 Albumin/Globulin Ratio 1.14 Medications Medications Current Medications Lorazepam (Ativan) 0.5 mg Q6H PRN IV ANXIETY; Start 10/27/16 at 17:00 Ondansetron HCl (Zofran Inj) 4 mg Q6H PRN IV NAUSEA AND/OR VOMITING; Start at 17:00 Acetaminophen (Tylenol Tab) 650 mg Q6H PRN PO PAIN LEVEL 1-3 OR FEVER Last administered on 10/29/16 10:35; Admin Dose 650 MG; Start 10/27/16 at 17:00 Magnesium Hydroxide (Milk Of Mag) 30 ml DAILY PRN PO CONSTIPATION Last administered on 10/31/16 20:43; Admin Dose 30 ML; Start 10/27/16 at 17:00 Bisacodyl (Dulcolax) 5 mg DAILY PRN PO CONSTIPATION Last administered on 08:27; Admin Dose 5 MG; Start 10/27/16 at 17:00 Famotidine (Pepcid) 20 mg Q12 PO Last administered on 11/01/16 08:27; Admin Dose 20 MG; Start 10/27/16 at 21:00 Ergocalciferol (Drisdol) 50,000 unit Q7D PO Last administered on 10/27/16 18: 19; Admin Dose 50,000 UNIT; Start 10/27/16 at 17:00 Loratadine (Claritin) 10 mg DAILY PO Last administered on 11/01/16 08:27; Admin Dose 10 MG; Start 10/28/16 at 09:00 Salmeterol Xinafoate/ Fluticasone (Advair 250/50 Diskus) 1 inh BID INH Last administered on 11/01/16 08:26; Admin Dose 1 INH; Start 10/27/16 at 21:00 Tamsulosin HCl (Flomax) 0.8 mg DAILY PO Last administered on 11/01/16 08:26; Admin Dose 0.8 MG; Start 10/28/16 at 09:00 Atorvastatin Calcium 10 mg 10 mg DAILY@21 PO Last administered on 10/31/16 20: 38; Admin Dose 10 MG; Start 10/27/16 at 21:00 Levofloxacin/ Dextrose (Levaquin 750 Mg/ D5W 150 ml (Pmx)) 150 ml @ 100 mls/hr Q24H IVPB Last administered on 10/31/16 17:16; Admin Dose 100 MLS/HR; Start at 17:00 Hydralazine HCl (Apresoline) 10 mg Q6H PRN IV SBP>160; Start 10/27/16 at 17:00 Warfarin Sodium (Coumadin) 5 mg DAILY@17 PO Last administered on 10/31/16 17: 16; Admin Dose 5 MG; Start 10/28/16 at 17:00 Promethazine HCl/ Codeine (Phenergan/ Codeine) 5 ml Q4H PRN PO COUGH Last administered on 10/30/16 08:55; Admin Dose 5 ML; Start 10/29/16 at 14:30 Diltiazem HCl (Cardizem) 30 mg QID PO Last administered on 11/01/16 08:27; Admin Dose 30 MG; Start 10/30/16 at 09:00 Prednisone (Prednisone) 40 mg DAILY PO ; Start 11/01/16 at 12:00 MIRYAM SANTOYO November 01, 2016 11:13
[2016-11-01] MEDS: predniSONE 20 MG TAB PO SCH (12:22)
[2016-11-01] MEDS: FLUTICASONE 0.05% 16 GM NAS SPRAY NASAL SCH ×2 (12:22→21:02)
[2016-11-01] MEDS: LEVOFLOXACIN 750MG/D5W (PMX) 150 ML IVPB SCH (17:02)
[2016-11-01] MEDS: WARFARIN 5 MG TAB PO SCH (17:02)
[2016-11-01 20:00] VITALS: BP 111/59; RESP 20
[2016-11-01] MEDS: ATORVASTATIN 10 MG TAB PO SCH (21:01)
[2016-11-01] MEDS: MAGNESIUM HYDROXIDE 30ML CUP PO PRN (21:01)
[2016-11-02 07:34] VITALS: BP 114/59; RESP 17
[2016-11-02] MEDS: FLUTICASONE 0.05% 16 GM NAS SPRAY NASAL SCH ×2 (08:56→22:21)
[2016-11-02] MEDS: SALMETEROL/FLUTICASONE 250/50 INHA INH SCH ×2 (08:56→22:22)
[2016-11-02] MEDS: TAMSULOSIN (SR) 0.4 MG CAP PO SCH (08:57)
[2016-11-02] MEDS: predniSONE 20 MG TAB PO SCH (08:57)
[2016-11-02] MEDS: LORATADINE 10 MG TAB PO SCH (08:57)
[2016-11-02] MEDS: FAMOTIDINE 20 MG TAB PO SCH ×2 (08:57→22:17)
[2016-11-02] MEDS: DILTIAZEM 30 MG TAB PO SCH ×4 (08:58→22:21)
[2016-11-02] MEDS ORDERED: MONT10TA21 PO (09:17)
[2016-11-02] MEDS ORDERED: DILT30TA30 PO (09:17)
[2016-11-02] MEDS ORDERED: COU5 PO (09:17)
[2016-11-02] MEDS ORDERED: FLUT16SP17 NASAL (09:17)
[2016-11-02] MEDS ORDERED: ALBU18HF INHALATION (09:17)
[2016-11-02] MEDS ORDERED: ADV25050 INH (09:17)
[2016-11-02] MEDS ORDERED: PRED10TA PO (09:17)
[2016-11-02] MEDS ORDERED: LEVO500T10 PO (09:18)
--- NOTE | 2016-11-02 09:22 | PDOCDIS ---
Discharge Instructions DIAGNOSIS Discharge Diagnosis: 1. COPD exacerbation 2. Acute on chronic respiratory failure 3. A. fib CONDITION Patient Condition: Stable HOME CARE INSTRUCTIONS: Special Diet: LOW FAT/CHOL FOLLOW UP/APPOINTMENTS Appointments 1. Follow up with Dr. Mega Mcmanus in one week 2. Follow up with Dr. Stanley Hargrove in one week MIRYAM SANTOYO November 02, 2016 09:22
[2016-11-02] MEDS: ALBUTEROL/IPRATROPIUM (NEB) 3 ML AMP HHN SCH ×4 (09:36→21:08)
--- NOTE | 2016-11-02 10:22 | CONS ---
Date/Time of Note Date/Time of Note DATE: 11/02/16 TIME: 10:20 Assessment/Plan Assessment/Plan Additional Assessment/Plan Assessment recommendations; 1. Patient admitted for COPD exacerbation and acute bronchitis with clinical improvement. Continue current treatment. Start steroid tapering in 24 hours. Consultation Date/Type/Reason Admit Date/Time October 27, 2016 at 16:17 Initial Consult Date 10/28/16 Type of Consultation: Pulmonary 24 HR Interval Summary Free Text/Dictation Patient condition is continually improving. Denies any shortness of breath, chest congestion is markedly improved denies any wheezing. General exam; elderly male, awake alert currently in no distress. Exam/Review of Systems Vital Signs Vitals Vital Signs Date Time Temp Pulse Resp B/P Pulse Ox O2 Delivery O2 Flow Rate FiO2 11/02/16 09:36 98 3.0 11/02/16 09:36 68 20 Nasal Cannula 11/02/16 07:34 97.7 114/59 Intake and Output 11/01/16 11/01/16 11/02/16 15:00 23:00 07:00 Intake Total 1350 ml 240 ml Output Total 1700 ml 900 ml Balance -350 ml -660 ml Exam HEENT examined; supple neck, no JVD. No lymphadenopathy. Midline trachea. No thyromegaly. Pharynx is clear. Chest examined; diminished breath sounds with minimal end expiratory wheezing. No added sound. S1-S2 audible, no murmurs. Regular rhythm. Abdomen examination; soft, protuberant. No organomegaly. Bowel sounds audible. Extremity examination; no peripheral edema. J[employer] SECURITY ENGINEER examination; no focal deficit. Results Result Diagram: 11/01/16 0531 11/01/16530 Medications Medications Current Medications Lorazepam (Ativan) 0.5 mg Q6H PRN IV ANXIETY; Start 10/27/16 at 17:00 Ondansetron HCl (Zofran Inj) 4 mg Q6H PRN IV NAUSEA AND/OR VOMITING; Start at 17:00 Acetaminophen (Tylenol Tab) 650 mg Q6H PRN PO PAIN LEVEL 1-3 OR FEVER Last administered on 10/29/16 10:35; Admin Dose 650 MG; Start 10/27/16 at 17:00 Magnesium Hydroxide (Milk Of Mag) 30 ml DAILY PRN PO CONSTIPATION Last administered on 11/01/16 21:01; Admin Dose 30 ML; Start 10/27/16 at 17:00 Bisacodyl (Dulcolax) 5 mg DAILY PRN PO CONSTIPATION Last administered on 08:27; Admin Dose 5 MG; Start 10/27/16 at 17:00 Famotidine (Pepcid) 20 mg Q12 PO Last administered on 11/02/16 08:57; Admin Dose 20 MG; Start 10/27/16 at 21:00 Ergocalciferol (Drisdol) 50,000 unit Q7D PO Last administered on 10/27/16 18: 19; Admin Dose 50,000 UNIT; Start 10/27/16 at 17:00 Loratadine (Claritin) 10 mg DAILY PO Last administered on 11/02/16 08:57; Admin Dose 10 MG; Start 10/28/16 at 09:00 Salmeterol Xinafoate/ Fluticasone (Advair 250/50 Diskus) 1 inh BID INH Last administered on 11/02/16 08:56; Admin Dose 1 INH; Start 10/27/16 at 21:00 Tamsulosin HCl (Flomax) 0.8 mg DAILY PO Last administered on 11/02/16 08:57; Admin Dose 0.8 MG; Start 10/28/16 at 09:00 Atorvastatin Calcium 10 mg 10 mg DAILY@21 PO Last administered on 11/01/16 21: 01; Admin Dose 10 MG; Start 10/27/16 at 21:00 Levofloxacin/ Dextrose (Levaquin 750 Mg/ D5W 150 ml (Pmx)) 150 ml @ 100 mls/hr Q24H IVPB Last administered on 11/01/16 17:02; Admin Dose 100 MLS/HR; Start at 17:00 Hydralazine HCl (Apresoline) 10 mg Q6H PRN IV SBP>160; Start 10/27/16 at 17:00 Warfarin Sodium (Coumadin) 5 mg DAILY@17 PO Last administered on 11/01/16 17: 02; Admin Dose 5 MG; Start 10/28/16 at 17:00 Promethazine HCl/ Codeine (Phenergan/ Codeine) 5 ml Q4H PRN PO COUGH Last administered on 10/30/16 08:55; Admin Dose 5 ML; Start 10/29/16 at 14:30 Diltiazem HCl (Cardizem) 30 mg QID PO Last administered on 11/02/16 08:58; Admin Dose 30 MG; Start 10/30/16 at 09:00 Prednisone (Prednisone) 40 mg DAILY PO Last administered on 11/02/16 08:57; Admin Dose 40 MG; Start 11/01/16 at 12:00 Fluticasone Propionate (Flonase 0.05% Nasal) 1 spray BID NASAL Last administered on 11/02/16 08:56; Admin Dose 1 SPRAY; Start 11/01/16 at 12:30 BETTY FAIRBANKS November 02, 2016 10:22
[2016-11-02] MEDS: BISACODYL (EC) 5 MG TAB PO PRN (12:57)
--- NOTE | 2016-11-02 14:05 | PN ---
Date/Time of Note Date/Time of Note DATE: 11/02/16 TIME: 14:02 Assessment/Plan VTE Prophylaxis VTE Prophylaxis Intervention: SCD's Lines/Catheters IV Catheter Type (from [facility]): [facility] Urinary Cath still in place: No Assessment/Plan Chief Complaint/Hosp Course Assessment and plan 1. COPD exacerbation. Continue on bronchodilators and steroid treatment. Titrate down O2 as tolerated 2. Acute on chronic respiratory failure secondary to #1. Space Controller following. Continue antibiotics. Await for clinical improvement of respiratory status 3. Essential hypertension. Continue antihypertensives and adjust as needed 4. Paroxysmal atrial fibrillation. Continue on Coumadin medication. Rate stable at present. 5. BPH. Continue Flomax 6. History of CAD. Continue on statin medication. 7. Suspect acute tracheobronchitis. Empirically on antibiotic. Disposition plan: Still wheezing. Continue steroid and bronchodilators. Continue pulmonology recommendations and inpatient monitoring Discussed plan of care with Dr. Castro Problems: Subjective 24 Hr Interval Summary Free Text/Dictation Still noted to be wheezing and having some cough. Exam/Review of Systems Vital Signs Vitals Vital Signs Date Time Temp Pulse Resp B/P Pulse Ox O2 Delivery O2 Flow Rate FiO2 11/02/16 13:01 77 18 98 Nasal Cannula 2.0 11/02/16 07:34 97.7 114/59 Intake and Output 11/01/16 11/01/16 11/02/16 15:00 23:00 07:00 Intake Total 1350 ml 240 ml Output Total 1700 ml 900 ml Balance -350 ml -660 ml Exam Constitutional: alert, oriented Psych: nl mood/affect Head: normocephalic Eyes: nl conjunctiva Neck: No jvd Respiratory: wheezing Cardiovascular: irregular rhythm Gastrointestinal: non-tender, soft Musculoskeletal: nl extremities to inspection, nl gait and stance Neurological: MECHANICAL ADJUSTER II-XII intact, nl mental status, nl speech Results Result Diagram: 11/01/1653011/01/16530 Medications Medications Current Medications Lorazepam (Ativan) 0.5 mg Q6H PRN IV ANXIETY; Start 10/27/16 at 17:00 Ondansetron HCl (Zofran Inj) 4 mg Q6H PRN IV NAUSEA AND/OR VOMITING; Start at 17:00 Acetaminophen (Tylenol Tab) 650 mg Q6H PRN PO PAIN LEVEL 1-3 OR FEVER Last administered on 10/29/16 10:35; Admin Dose 650 MG; Start 10/27/16 at 17:00 Magnesium Hydroxide (Milk Of Mag) 30 ml DAILY PRN PO CONSTIPATION Last administered on 11/01/16 21:01; Admin Dose 30 ML; Start 10/27/16 at 17:00 Bisacodyl (Dulcolax) 5 mg DAILY PRN PO CONSTIPATION Last administered on 12:57; Admin Dose 5 MG; Start 10/27/16 at 17:00 Famotidine (Pepcid) 20 mg Q12 PO Last administered on 11/02/16 08:57; Admin Dose 20 MG; Start 10/27/16 at 21:00 Ergocalciferol (Drisdol) 50,000 unit Q7D PO Last administered on 10/27/16 18: 19; Admin Dose 50,000 UNIT; Start 10/27/16 at 17:00 Loratadine (Claritin) 10 mg DAILY PO Last administered on 11/02/16 08:57; Admin Dose 10 MG; Start 10/28/16 at 09:00 Salmeterol Xinafoate/ Fluticasone (Advair 250/50 Diskus) 1 inh BID INH Last administered on 11/02/16 08:56; Admin Dose 1 INH; Start 10/27/16 at 21:00 Tamsulosin HCl (Flomax) 0.8 mg DAILY PO Last administered on 11/02/16 08:57; Admin Dose 0.8 MG; Start 10/28/16 at 09:00 Atorvastatin Calcium (Lipitor) 10 mg DAILY@21 PO Last administered on 21:01; Admin Dose 10 MG; Start 10/27/16 at 21:00 Hydralazine HCl (Apresoline) 10 mg Q6H PRN IV SBP>160; Start 10/27/16 at 17:00 Warfarin Sodium (Coumadin) 5 mg DAILY@17 PO Last administered on 11/01/16 17: 02; Admin Dose 5 MG; Start 10/28/16 at 17:00 Promethazine HCl/ Codeine (Phenergan/ Codeine) 5 ml Q4H PRN PO COUGH Last administered on 10/30/16 08:55; Admin Dose 5 ML; Start 10/29/16 at 14:30 Diltiazem HCl (Cardizem) 30 mg QID PO Last administered on 11/02/16 12:57; Admin Dose 30 MG; Start 10/30/16 at 09:00 Prednisone (Prednisone) 40 mg DAILY PO Last administered on 11/02/16 08:57; Admin Dose 40 MG; Start 11/01/16 at 12:00 Fluticasone Propionate (Flonase 0.05% Nasal) 1 spray BID NASAL Last administered on 11/02/16 08:56; Admin Dose 1 SPRAY; Start 11/01/16 at 12:30 MIRYAM SANTOYO November 02, 2016 14:05
[2016-11-02] MEDS ORDERED: LACTULOSE 30ML CUP PO PRN (14:30)
[2016-11-02] MEDS: SENNA TAB PO SCH (14:36)
[2016-11-02] MEDS: WARFARIN 5 MG TAB PO SCH (17:53)
[2016-11-02 20:00] VITALS: BP 103/54; RESP 20
[2016-11-02] MEDS: ATORVASTATIN 10 MG TAB PO SCH (22:16)
[2016-11-02 22:19] VITALS: BP 119/56; PULSE 75; RESP 18
[2016-11-02] MEDS: MAGNESIUM HYDROXIDE 30ML CUP PO PRN (22:21)
[2016-11-03 06:46] LABS: INR 2.02; PROTIME 23.1 Sec (12.2-14.2); PT RATIO 1.8
[2016-11-03 07:35] VITALS: BP 126/58; RESP 16
[2016-11-03] MEDS: ALBUTEROL/IPRATROPIUM (NEB) 3 ML AMP HHN SCH ×3 (08:11→16:38)
[2016-11-03] MEDS: FLUTICASONE 0.05% 16 GM NAS SPRAY NASAL SCH (09:43)
[2016-11-03] MEDS: SALMETEROL/FLUTICASONE 250/50 INHA INH SCH (09:43)
[2016-11-03] MEDS: SENNA TAB PO SCH (09:44)
[2016-11-03] MEDS: predniSONE 20 MG TAB PO SCH (09:44)
[2016-11-03] MEDS: TAMSULOSIN (SR) 0.4 MG CAP PO SCH (09:44)
[2016-11-03] MEDS: LORATADINE 10 MG TAB PO SCH (09:44)
[2016-11-03] MEDS: DILTIAZEM 30 MG TAB PO SCH ×3 (09:44→17:52)
[2016-11-03] MEDS: FAMOTIDINE 20 MG TAB PO SCH (09:44)
--- NOTE | 2016-11-03 10:21 | CONS ---
Date/Time of Note Date/Time of Note DATE: 11/03/16 TIME: 10:19 Assessment/Plan Assessment/Plan Additional Assessment/Plan Assessment recommendations; 1. Patient admitted for COPD exacerbation with marked clinical improvement. 2. History of paroxysmal atrial fibrillation, patient maintained on long-term anticoagulation, currently in sinus rhythm. 3. History of BPH and hyperlipidemia. Discontinue [place]. Patient can be discharged home. However prior to discharge I would recommend obtaining an ambulatory pulse oximetry reading to rule out exertional hypoxemia. Consultation Date/Type/Reason Admit Date/Time October 27, 2016 at 16:17 Initial Consult Date 10/28/16 Type of Consultation: Pulmonary 24 HR Interval Summary Free Text/Dictation Patient's condition is continually improving. He denies any shortness of breath , chest congestion, sputum production or wheezing. Wants to go home. General exam; elderly male, awake alert currently in no distress. Exam/Review of Systems Vital Signs Vitals Vital Signs Date Time Temp Pulse Resp B/P Pulse Ox O2 Delivery O2 Flow Rate FiO2 11/03/16 08:12 73 18 98 Nasal Cannula 2.0 11/03/16 07:35 98.0 126/58 Intake and Output 11/02/16 11/02/16 11/03/16 15:00 23:00 07:00 Intake Total 1440 ml 600 ml Output Total 2375 ml 351 ml Balance -935 ml 249 ml Exam HEENT examination; supple neck, no JVD. No lymphadenopathy. Midline trachea. No thyromegaly. Pharynx is clear. Patient has multiple missing teeth. Has bilateral intraocular lens implants. Chest examination; clear to auscultation. S1-S2 audible, no murmurs. Regular rhythm. Abdomen examination; soft, protuberant. No organomegaly. Bowel sounds audible. Extremity examination; no peripheral edema. ASSISTANT PROJECT MANAGER examination; no focal deficit. Results Result Diagram: 11/01/1631 11/01/1631 Results 24 hrs Laboratory Tests Test 11/03/16 05:50 Prothrombin Time 23.1 H Prothrombin Time Ratio 1.8 INR International Normalized Ratio 2.02 Medications Medications Current Medications Lorazepam (Ativan) 0.5 mg Q6H PRN IV ANXIETY; Start 10/27/16 at 17:00 Ondansetron HCl (Zofran Inj) 4 mg Q6H PRN IV NAUSEA AND/OR VOMITING; Start at 17:00 Acetaminophen (Tylenol Tab) 650 mg Q6H PRN PO PAIN LEVEL 1-3 OR FEVER Last administered on 10/29/16 10:35; Admin Dose 650 MG; Start 10/27/16 at 17:00 Magnesium Hydroxide (Milk Of Mag) 30 ml DAILY PRN PO CONSTIPATION Last administered on 11/02/16 22:21; Admin Dose 30 ML; Start 10/27/16 at 17:00 Bisacodyl (Dulcolax) 5 mg DAILY PRN PO CONSTIPATION Last administered on 12:57; Admin Dose 5 MG; Start 10/27/16 at 17:00 Famotidine (Pepcid) 20 mg Q12 PO Last administered on 11/03/16 09:44; Admin Dose 20 MG; Start 10/27/16 at 21:00 Ergocalciferol (Drisdol) 50,000 unit Q7D PO Last administered on 10/27/16 18: 19; Admin Dose 50,000 UNIT; Start 10/27/16 at 17:00 Loratadine (Claritin) 10 mg DAILY PO Last administered on 11/03/16 09:44; Admin Dose 10 MG; Start 10/28/16 at 09:00 Salmeterol Xinafoate/ Fluticasone (Advair 250/50 Diskus) 1 inh BID INH Last administered on 11/03/16 09:43; Admin Dose 1 INH; Start 10/27/16 at 21:00 Tamsulosin HCl (Flomax) 0.8 mg DAILY PO Last administered on 11/03/16 09:44; Admin Dose 0.8 MG; Start 10/28/16 at 09:00 Atorvastatin Calcium (Lipitor) 10 mg DAILY@21 PO Last administered on 22:16; Admin Dose 10 MG; Start 10/27/16 at 21:00 Hydralazine HCl (Apresoline) 10 mg Q6H PRN IV SBP>160; Start 10/27/16 at 17:00 Warfarin Sodium (Coumadin) 5 mg DAILY@17 PO Last administered on 11/02/16 17: 53; Admin Dose 5 MG; Start 10/28/16 at 17:00 Promethazine HCl/ Codeine (Phenergan/ Codeine) 5 ml Q4H PRN PO COUGH Last administered on 10/30/16 08:55; Admin Dose 5 ML; Start 10/29/16 at 14:30 Diltiazem HCl (Cardizem) 30 mg QID PO Last administered on 11/03/16 09:44; Admin Dose 30 MG; Start 10/30/16 at 09:00 Prednisone (Prednisone) 40 mg DAILY PO Last administered on 11/03/16 09:44; Admin Dose 40 MG; Start 11/01/16 at 12:00 Fluticasone Propionate (Flonase 0.05% Nasal) 1 spray BID NASAL Last administered on 11/03/16 09:43; Admin Dose 1 SPRAY; Start 11/01/16 at 12:30 Lactulose (Enulose) 20 gm Q6H PRN PO CONSTIPATION Last administered on 17:53; Admin Dose 20 GM; Start 11/02/16 at 14:30 Senna (Senokot) 2 tab DAILY PO Last administered on 11/03/16 09:44; Admin Dose 2 TAB; Start 11/02/16 at 14:30 BETTY FAIRBANKS November 03, 2016 10:20
--- NOTE | 2016-11-03 15:44 | DS ---
Date/Time of Note Date/Time of Note DATE: 11/03/16 TIME: 15:41 Discharge Summary Admission/Discharge Info Admit Date/Time October 27, 2016 at 16:17 Discharge Date/Time Final Diagnosis 1. COPD exacerbation. 2. Acute on chronic respiratory failure secondary to #1. 3. Essential hypertension. 4. Paroxysmal atrial fibrillation. 5. BPH. 6. History of CAD. 7. Suspect acute tracheobronchitis. Patient Condition: Stable Consults 1. Dr. Scott Glover 2. Dr. Angel [facility] Course This is a 76-year-old male with history of COPD and hypertension and, atrial fibrillation on Coumadin, CAD, BPH, obesity, who came to [facility] due to reports of shortness of breath with associated cough and yellowish sputum. On arrival patient did have ABG showing his CO2 retention and an x-ray that did show cardiomegaly but clear lungs. Patient does have frequent visits to the hospital due to his COPD exacerbation and we did obtain a pulmonary consult. We did continue him on bronchodilators and steroids and he did have good response. Was initially placed on O2 but titrated down. Patient was placed on antibiotics empirically for tracheobronchitis. He did have good response. During his course of stay he did improve. He did report better breathing and he did have resolvent of his wheezing. He was continued on antihypertensives for hypertension and Coumadin for his A. fib. After discussion with helicopter specialist we did discontinue his beta-ana luisa due to his consistent wheezing and placed him on diltiazem instead from which he did have good response. For this he was seen by promotion manager as well. He is also continued on statin medication for CAD. During his course of stay he did improve. The plan of care was discussed with patient and patient did verbalizes understanding. On the day of discharge patient was in stable condition Discussed plan of care with Dr. Castro Discharge process 40 minutes Home Meds Active Scripts Levofloxacin* (Levofloxacin*) 500 Mg Tablet, 500 MG PO DAILY for 7 Days, TAB Prov:MIRYAM SANTOYO 11/02/16 Montelukast Sodium* (Singulair*) 10 Mg Tablet, 10 MG PO QHS, #30 TAB Prov:MIRYAM SANTOYO 11/02/16 Warfarin Sod (Coumadin) 5 Mg Tab, 5 MG PO DAILY@17 for 5 Days, TAB further refill for prescription per your primary care provider Prov:MIRYAM SANTOYO 11/02/16 Diltiazem Hcl* (Cardizem*) 30 Mg Tablet, 30 MG PO QID for 30 Days, TAB Prov:MIRYAM SANTOYO 11/02/16 Fluticasone Propionate* (Fluticasone Propionate* Nasal) 50 Mcg/[place] - 16 Gm [place].susp, 1 SPRAY NASAL BID, #1 BOT Prov:BARBARA SANTOYONELL 11/02/16 Prednisone* (Prednisone*) 10 Mg Tab, 10 MG PO DAILY, #30 TAB 1. take 40mg by mouth daily for 3 days 2. then 30mg by mouth daily for 3 days 3. then 20mg by mouth daily for 3 days 4. then 10mg by mouth daily for 3 days Prov:BARBARA SANTOYONELL 11/02/16 Salmeterol Xinaf/Fluticasone* (Advair*) 250-50 Diskus Inhaler, 1 INH INH BID, # 1 VIAL Prov:BARBARA SANTOYONELL 11/02/16 Albuterol Sulfate* (Ventolin HFA*) 18 Gm Hfa.aer.ad, 2 PUFF INHALATION Q4H, #1 INHALER Prov:CATHERINEZoyaMIRYAM 11/02/16 Guaifenesin-Codeine Phosphate* (Robitussin* AC) 5 Ml Syrup, 10 ML PO Q6 Y for COUGH, #5 OZ Prov:CATHERINEZoyaMIRYAM 10/21/16 Carvedilol* (Carvedilol*) 6.25 Mg Tablet, 3.125 MG PO BID for 30 Days, TAB Prov:NICOLASAMELLMIRYAM 10/21/16 Tiotropium [place]* (Spiriva*) 18 Mcg Cap.w.dev, 1 CAP INHALATION DAILY, #30 CAP Prov:CATHERINEZoyaBARBARAMIRYAM 10/21/16 Loratadine* (Claritin*) 10 Mg Capsule, 10 MG PO DAILY for 30 Days, CAP Prov:ZENAIDA KRUGER 08/17/16 Reported Medications Albuterol/Ipratropium* (Combivent Respimat*) 20-100 Mcg/Inh - 4 Gm Aer.w.adap, 1 PUFF INHALATION QID, #1 INHALER 10/18/16 Simvastatin* (Zocor*) 20 Mg Tablet, 20 MG PO QHS, #30 TAB 10/18/16 Nebivolol* (Bystolic*) 5 Mg Tab, 5 MG PO DAILY, #30 TAB 10/18/16 Ergocalciferol (Vitamin D2) (VITAMIN D2) 50,000 Unit Capsule, 18404 UNIT PO Q7D , CAP 10/18/16 Tamsulosin Hcl* (Tamsulosin Hcl*) 0.4 Mg Cap.er.24h, 0.8 MG PO DAILY, CAP 08/11/16 Follow-up Plan CONDITION Patient Condition: Stable HOME CARE INSTRUCTIONS: Special Diet: LOW FAT/CHOL FOLLOW UP/APPOINTMENTS Appointments 1. Follow up with Dr. Mega Mcmanus in one week 2. Follow up with Dr. Stanley Hargrove in one week Primary Care Provider Care Physician No Primary Pending Labs Laboratory Tests Test 11/03/16 05:50 Prothrombin Time 23.1Sec (12.2-14.2) Prothrombin Time Ratio 1.8 INR International Normalized Ratio 2.02 MIRYAM SANTOYO November 03, 2016 15:44
[2016-11-03] MEDS: ERGOCALCIFEROL 50,000 UNIT CAP PO SCH (17:52)
[2016-11-03] MEDS: WARFARIN 5 MG TAB PO SCH (17:52)
== END 2016-11-03 19:20 | disposition home health service (06) | DRG 189 ==
LOC: E/R 13:33 → TEL 16:17 → MS2 10-29 19:30
PROVIDERS: ADMIT Family Medicine; ATTEND Family Medicine
PROC: 4A03XR1 Measurement of Arterial Saturation, Peripheral, External Approach (ICD-10-PCS; principal; 2016-10-27)
PROC: 3E0F7GC Introduction of Other Therapeutic Substance into Respiratory Tract, Via Natural or Artificial Opening (ICD-10-PCS; 2016-10-27)
DX: J96.21 Acute and chronic respiratory failure with hypoxia (principal); Z99.81 Dependence on supplemental oxygen; J44.0 Chronic obstructive pulmonary disease with (acute) lower respiratory infection; I48.0 Paroxysmal atrial fibrillation; J44.1 Chronic obstructive pulmonary disease with (acute) exacerbation; J45.901 Unspecified asthma with (acute) exacerbation; I10 Essential (primary) hypertension; N40.0 Benign prostatic hyperplasia without lower urinary tract symptoms; J96.22 Acute and chronic respiratory failure with hypercapnia; J20.9 Acute bronchitis, unspecified; I25.10 Atherosclerotic heart disease of native coronary artery without angina pectoris; F17.210 Nicotine dependence, cigarettes, uncomplicated; E78.5 Hyperlipidemia, unspecified; K59.00 Constipation, unspecified; I25.2 Old myocardial infarction; Z79.01 Long term (current) use of anticoagulants; Z86.73 Personal history of transient ischemic attack (TIA), and cerebral infarction without residual deficits
CPT/HCPCS: 36415; 36600; 71010; 80048; 80053; 80061; 82550; 82553; 82803; 83036; 83735; 83880; 84100; 84439; 84443; 84484; 85025; 85610; 85730; 93005; 94640; 94644; 94660; 94664; 96372; 96374; J1956; J2920; J2930; J3105; J3475; J7512